=== PATIENT | female | born 1955 | race Caucasian/White ===

== ENCOUNTER → 2016-10-13 | Outpatient (CLI) | payer BC ==
--- OUTSIDE RECORDS SUMMARY | 2016-10-13 07:07 | XMS REPORT | Continuity of Care Document ---
Author Author [facility] Organization [facility] Address Unknown Phone Unavailable Care Team Providers Care Web Designer Developer Name Role Phone Antelmo Gibson PCP [phone] Source Comments Some departments are not documenting in the electronic medical record. If you do not see the information that you expected, contact Release of Information in the Health Information Management department at [phone] for further assistance in locating additional records.[facility] Active Allergies and Adverse Reactions Not on File Current Medications Not on file Active Problems Not on file Social History Tobacco Use Types Packs/Day Years Used Date Never Assessed Plan of Care Health Maintenance Due Date Last Done Comments Physical (Comprehensive) 1963 Exam Pertussis Vaccine 1967 Tetanus Vaccine 1973 Cervical Cancer Screening 1977 Breast Cancer Screening 1996 Colorectal Cancer 2006 Screening Influenza Vaccine 05/19/2016 Results from Last 3 Months Not on file
--- NOTE | 2016-10-13 19:17 | Diagnostic Imaging Report ---
INDICATION: Digital mammogram bilateral screening. This study was compared to the prior exam of 10/13/15, 10/06/14, 09/26/13 and 09/27/12. At this time, there are no current complaints. The current study was also evaluated with a Computer Aided Detection (CAD) system. FINDINGS: There is a mild amount of fibroglandular tissue present in both breasts, similar to the prior exam. No primary or secondary sign of malignancy is noted. IMPRESSION: There is no radiographic evidence for malignancy. ACR BI-RADS Category 1: Negative Result letter will be mailed to the patient. Note: At least 10% of breast cancer is not imaged by mammography. Dictated by: Dictated on workstation # [id number]
== END ==
LOC: RAD 07:04
PROVIDERS: ATTEND Internal Medicine
DX: Z12.31 Encounter for screening mammogram for malignant neoplasm of breast (principal)

== ENCOUNTER → 2017-10-19 | Outpatient (CLI) | payer BC ==
--- NOTE | 2017-10-19 18:15 | Diagnostic Imaging Report ---
INDICATION: Routine screening. COMPARISON: Comparison is made with prior exam from 10/13/2016 and 10/13/2015. The current study was also evaluated with a Computer Aided Detection (CAD) system. FINDINGS: Both breasts are primarily involutional. Benign nodules in the upper-outer right breast are stable. No new mass or malignant-appearing microcalcifications are seen. The axillae are unremarkable. IMPRESSION: No mammographic features suspicious for malignancy are identified. ACR BI-RADS Category 2: Benign findings. Result letter will be mailed to the patient. Note: At least 10% of breast cancer is not imaged by mammography. Dictated by: Dictated on workstation # [id number]
== END ==
LOC: RAD 07:11
PROVIDERS: ATTEND Internal Medicine
DX: Z12.31 Encounter for screening mammogram for malignant neoplasm of breast (principal)
CPT/HCPCS: 77067

== ENCOUNTER 2018-10-22 06:31 | Outpatient (CLI) | payer BC ==
[~2018-10-22] VITALS: Ht 170.2 cm; Wt 80.3 kg
[2018-10-22] MEDS ORDERED: MONT10TA24 PO (15:19)
[2018-10-22] MEDS ORDERED: VENL75CA PO (15:20)
== END 2018-10-22 15:22 | disposition home or self-care (01) ==
LOC: PREOP 06:31
PROVIDERS: ATTEND Surgery
DX: Z01.818 Encounter for other preprocedural examination (principal)

== ENCOUNTER 2018-10-29 07:40 | Day surgery (SDC) | payer BC ==
[2018-10-29] MEDS ORDERED: NS IV 500 ML 500 ML ONE (07:57)
[2018-10-29 08:12] VITALS: BP 123/79
[2018-10-29] MEDS ORDERED: NS IV 500 ML 500 ML IV PRN (08:20)
[2018-10-29] MEDS ORDERED: fentaNYL INJECTION 100 MCG/2 ML AMP IVP ONE (08:30)
[2018-10-29] MEDS ORDERED: MIDAZOLAM 2 MG/2 ML (VERSED) VIAL IVP ONE (08:30)
[2018-10-29] MEDS ORDERED: MIDAZOLAM 2 MG/2 ML (VERSED) VIAL ONE ×4 (09:01→09:02)
[2018-10-29] MEDS ORDERED: fentaNYL INJECTION 100 MCG/2 ML AMP ONE (09:01)
--- NOTE | 2018-10-29 10:13 | History & Physicial ---
History of Present Illness History of Present Illness Reason for visit/HPI to undergo screening colonoscopy. No family history of colon cancer Date of Admission 10/29/18 Date Seen by a Provider: Oct 29, 2018 Time Seen by a Provider: 09:45 I consulted on this patient on 10/29/18 10:12 Attending Physician Ang Ryan MD Admitting Physician Beverly Draper DO Consult Allergies and Home Medications Allergies Coded Allergies: Penicillins (Verified Allergy, Unknown, 07/13/10) Home Medications Montelukast Sodium 10 Mg Tablet, 10 MG PO DAILY, (Reported) Venlafaxine HCl 75 Mg Cap.er.24h, 75 MG PO DAILY, (Reported) Patient Home Medication List Home Medication List Reviewed: Yes Past Wxnvsrf-Iqedog-Jxccml Hx Patient Social History Marrital Status: Employed/Student: employed Alcohol Use: Denies Use Recreational Drug Use: No Smoking Status: Never a Smoker 2nd Hand Smoke Exposure: No Recent Foreign Travel: No Contact w/other who traveled: No Recent Hopitalizations: No Recent Infectious Disease Expo: No Immunizations Up To Date Tetanus Booster (TDap): Unknown Date of Influenza Vaccine: Jun 18, 2018 Seasonal Allergies Seasonal Allergies: Yes Surgeries No Respiratory Yes Currently Using CPAP: No Currently Using BIPAP: No Cardiovascular No Neurological No Reproductive System Sexually Transmitted Disease: No HIV/AIDS: No Female Reproductive Disorders: Denies Genitourinary No Gastrointestinal No Musculoskeletal No Endocrine History of Endocrine Disorders: No HEENT History of HEENT Disorders: No Loss of Vision: Denies Hearing Impairment: Denies Cancer No Psychosocial History of Psychiatric Problem: Yes Behavioral Health Disorders: Anxiety Integumentary History of Skin or Integumenta: No Blood Transfusions History of Blood Disorders: No Review of Systems Constitutional: no symptoms reported EENTM: no symptoms reported Respiratory: no symptoms reported Gastrointestinal: no symptoms reported Genitourinary: no symptoms reported Musculoskeletal: no symptoms reported Skin: no symptoms reported Psychiatric/Neurological: No Symptoms Reported Physical Exam Vital Signs Vital Signs - First Documented 10/29/18 08:12 Temp 97.1 Pulse 72 Resp 18 B/P (MAP) 123/79 (94) Pulse Ox 99 O2 Delivery Room Air Capillary Refill : Height, Weight, BMI Height: 5'7.00" Weight: 177lbs. 0.0oz. 80.674098is; 27.7 BMI Method: General Appearance: No Apparent Distress Neck: Normal Inspection Respiratory: Lungs Clear Cardiovascular: Regular Rate, Rhythm Gastrointestinal: Non Tender, Soft Rectal: Deferred Neurologic/Psychiatric: Alert, Oriented x3 Skin: Warm/Dry Assessment/Plan Assessment and Plan lady to undergo screening colonoscopy. Discussed in detail. Admission Diagnosis Admission Status: Other (Outpt Proc) ANG RYAN MD Oct 29, 2018 10:13
--- NOTE | 2018-10-29 10:14 | Conscious Sedation/ASA ---
Conscious Sedation Pre-Proced Time 10:13 ASA Score 1 For ASA 3 and 4: Consider anesthesia and medical clearance. Also, for patients with a history of failed moderate sedation consider anesthesia. Airway Lungs Heart ASA score ASA 1: a normal healthy patient ASA 2: a patient with a mild systemic disease (mid diabetes, controlled hypertension, obesity ASA 3: a patient with a severe systemic disease that limits activity (angina , COPD, prior Myocardial infarction) ASA 4: a patient with an incapacitating disease that is a constant threat to life (CHF, renal failure) ASA 5: a moribund patient not expected to survive 24 hrs. (ruptured aneurysm) ASA 6: a declared brain- patient whose organs are being harvested. For emergent operations, add the letter E after the classification Mallampati Classification Grade 1 Sedation Plan Discussed options with patient/fam The patient is an appropriate candidate to undergo the planned procedure, sedation, and anesthesia. The patient immediately re-assessed prior to indication. ANG RYAN MD Oct 29, 2018 10:14
--- NOTE | 2018-10-29 10:32 | Endo Procedure Record ---
Endo Procedure Report Date of Procedure Last Colonoscopy: Yes Oct 29, 2018 Surgeon (s) ANG RYAN MD Post Procedure/Op Diagnosis 2 mm polyp at the midrectum. Procedure Performed colonoscopy to cecum hot biopsy polypectomy Description of Procedure Anesthesia Type: Conscious Sedation Specimen(s) collected/removed rectal polyp Description of the Procedure Indication for the procedure: This lady came in for screening colonoscopy. She denied any family history of colon cancer. Informed consent was obtained after reviewing the procedure in detail. Description of the procedure: She was placed in left lateral decubitus position and her vital signs were monitored. Conscious sedation was achieved using Versed and fentanyl. Digital rectal examination was unremarkable. The colonoscope was then introduced into the rectum and advanced all the way up to the cecum. The quality bowel preparation was excellent. The scope was then withdrawn slowly and the mucosa examined in a systematic fashion. Findings: 2 mm polyp at the mid rectum, that was excised with hot biopsy forceps. She tolerated the procedure well and was taken back to the nursing area in a stable condition. Impression: Screening colonoscopy. Small rectal polyp excised. Recommend repeating in 5 years. Copy Copies To 1: TREMAINE TO XAVIER M MD Oct 29, 2018 10:31
--- NOTE | 2018-10-29 10:33 | Discharge Inst-Simple/Standard ---
Discharge Inst-Standard Discharge Medications New, Converted or Re-Newed RX: Other Patient Instructions/Follow Up Plan of Care/Instructions/FU: repeat colonoscopy in 5 years Activity as Tolerated: Yes Discharge Diet: No Restrictions ANG RYAN MD Oct 29, 2018 10:33
[2018-10-29 10:45] VITALS: BP 123/71
[2018-10-29 11:15] VITALS: BP 111/72
[2018-10-29 11:25] VITALS: BP 111/72
== END 2018-10-29 11:25 | disposition home or self-care (01) ==
LOC: ENDO 07:40
PROVIDERS: ATTEND Surgery
DX: Z12.11 Encounter for screening for malignant neoplasm of colon (principal); K62.1 Rectal polyp; Z88.0 Allergy status to penicillin; F41.9 Anxiety disorder, unspecified; Z79.899 Other long term (current) drug therapy

== ENCOUNTER → 2018-10-29 | Outpatient (CLI) | payer BC ==
[~2018-10-29] MED LIST: MONT10TA24 PO; VENL75CA PO
--- NOTE | 2018-10-29 08:46 | Diagnostic Imaging Report ---
INDICATION: Routine screening. COMPARISON: 10/19/2017 and 10/13/2016. TECHNIQUE: 2D and 3D bilateral screening mammography was performed with CAD. FINDINGS: Scattered fibroglandular densities are identified bilaterally. Benign-appearing nodules in the upper outer right breast are stable. No new mass or malignant appearing microcalcifications are identified. The axillae are unremarkable. IMPRESSION: No mammographic features suspicious for malignancy are identified. ACR BI-RADS Category 2: Benign findings. Result letter will be mailed to the patient. Note: At least 10% of breast cancer is not imaged by mammography. Dictated by: Dictated on workstation # [id number]
== END ==
LOC: RAD 07:25
PROVIDERS: ATTEND Internal Medicine
DX: Z12.31 Encounter for screening mammogram for malignant neoplasm of breast (principal)
CPT/HCPCS: 77067

== ENCOUNTER → 2019-11-14 | Outpatient (CLI) | payer BC ==
[~2019-11-14] MED LIST changes: -MONT10TA24 PO; +MONT10TA26 PO
--- NOTE | 2019-11-14 09:10 | Diagnostic Imaging Report ---
INDICATION: Routine screening. Comparison is made with prior mammogram 10/29/2018 and 10/19/2017. 2-D and 3-D bilateral screening mammography was performed with CAD. Scattered fibroglandular densities are identified bilaterally. Intraparenchymal lymph nodes in the upper-outer right breast are stable. No new mass or malignant appearing microcalcifications are seen. Axillae are unremarkable. IMPRESSION: BI-RADS Category 2 No mammographic features suspicious for malignancy are identified. ACR BI-RADS Category 2: Benign findings. Result letter will be mailed to the patient. Note: At least 10% of breast cancer is not imaged by mammography. Dictated by: Dictated on workstation # [id number]
== END ==
LOC: RAD 07:27
PROVIDERS: ATTEND Internal Medicine
DX: Z12.31 Encounter for screening mammogram for malignant neoplasm of breast (principal)
CPT/HCPCS: 77067

== ENCOUNTER 2020-08-28 11:25 | Emergency (ER) | payer BC ==
[~2020-08-28] VITALS: Ht 170.2 cm; Wt 79.3 kg
[~2020-08-28 11:25] MED LIST changes: -MONT10TA26 PO; +MONT10TA97 PO
--- NOTE | 2020-08-28 11:37 | ED Cardiac General ---
History of Present Illness General Stated Complaint: SOB,ELEVATED HR Source: patient Exam Limitations: no limitations History of Present Illness Date Seen by Provider: Aug 28, 2020 Time Seen by Provider: 11:35 Initial Comments To ER with reports of shortness of breath and high heart rate since yesterday. Heart rate is in the 1 teens to 120s. She has no chest pain. She has no noticeable lower extremity swelling. She did have Covid couple of months ago. No fevers or chills. Timing/Duration: changing over time Severity: moderate Location: central NTG SL BOOKIE: No ASA po BOOKIE: No Associated Systoms: Cough Allergies and Home Medications Allergies Coded Allergies: Penicillins (Verified Allergy, Unknown, 07/13/10) Home Medications Montelukast Sodium 10 Mg Tablet, 10 MG PO DAILY, (Reported) Venlafaxine HCl 75 Mg Cap.er.24h, 75 MG PO DAILY, (Reported) Patient Home Medication List Home Medication List Reviewed: Yes Review of Systems Review of Systems Constitutional: see HPI EENTM: No Symptoms Reported Respiratory: See HPI, Shortness of Air Cardiovascular: See HPI, Palpitations Gastrointestinal: No Symptoms Reported Genitourinary: No Symptoms Reported Musculoskeletal: no symptoms reported Skin: no symptoms reported Psychiatric/Neurological: No Symptoms Reported Endocrine: No Symptoms Reported Hematologic/Lymphatic: No Symptoms Reported Past Etuubtv-Iseyej-Yciaii Hx Patient Social History 2nd Hand Smoke Exposure: No Recent Foreign Travel: No Contact w/Someone Who Travel: No Recent Hopitalizations: No Immunizations Up To Date Tetanus Booster (TDap): Unknown Date of Influenza Vaccine: Jun 18, 2018 Seasonal Allergies Seasonal Allergies: Yes Past Medical History Surgeries: No Respiratory: Yes Asthma Currently Using CPAP: No Currently Using BIPAP: No Cardiac: No Neurological: No Female Reproductive Disorders: Denies Sexually Transmitted Disease: No HIV/AIDS: No Genitourinary: No Gastrointestinal: No Musculoskeletal: No Endocrine: No HEENT: No Loss of Vision: Denies Hearing Impairment: Denies Cancer: No Psychosocial: Yes Anxiety Integumentary: No Blood Disorders: No Physical Exam Vital Signs Vital Signs - First Documented 08/28/20 11:25 Temp 36.4 Pulse 113 Resp 20 B/P (MAP) 120/99 (106) Pulse Ox 98 O2 Delivery Room Air Capillary Refill : Height, Weight, BMI Height: 5'7.00" Weight: 177lbs. 0.0oz. 80.649934ns; 27.7 BMI Method: General Appearance: No Apparent Distress, WD/WN HEENT: PERRL/EOMI, TMs Normal Neck: Full Range of Motion, Normal Inspection Respiratory: No Accessory Muscle Use, No Respiratory Distress Cardiovascular: Normal Peripheral Pulses, Tachycardia (Sinus narrow complex rate of 110-1 25) Gastrointestinal: Normal Bowel Sounds, Non Tender, Soft Extremity: Normal Capillary Refill, Normal Inspection Neurologic/Psychiatric: Alert, Oriented x3 Skin: Normal Color, Warm/Dry Progress/Results/Core Measures Results/Orders Lab Results Laboratory Tests Test 08/28/20 11:45 Range/Units White Blood Count 4.4 4.3-11.0 10^3/uL Red Blood Count 4.30 3.80-5.11 10^6/uL Hemoglobin 12.8 11.5-16.0 g/dL Hematocrit 39 35-52 % Mean Corpuscular Volume 91 80-99 fL Mean Corpuscular Hemoglobin 30 25-34 pg Mean Corpuscular Hemoglobin Concent 33 32-36 g/dL Red Cell Distribution Width 13.2 10.0-14.5 % Platelet Count 236 130-400 10^3/uL Mean Platelet Volume 10.2 9.0-12.2 fL Immature Granulocyte % (Auto) 0 % Neutrophils (%) (Auto) 67 42-75 % Lymphocytes (%) (Auto) 19 12-44 % Monocytes (%) (Auto) 11 0-12 % Eosinophils (%) (Auto) 3 0-10 % Basophils (%) (Auto) 1 0-10 % Neutrophils # (Auto) 2.9 1.8-7.8 10^3/uL Lymphocytes # (Auto) 0.8 L 1.0-4.0 10^3/uL Monocytes # (Auto) 0.5 0.0-1.0 10^3/uL Eosinophils # (Auto) 0.2 0.0-0.3 10^3/uL Basophils # (Auto) 0.0 0.0-0.1 10^3/uL Immature Granulocyte # (Auto) 0.0 0.0-0.1 10^3/uL D-Dimer 0.62 H 0.00-0.49 UG/ML Sodium Level 134 L 135-145 MMOL/L Potassium Level 4.3 3.6-5.0 MMOL/L Chloride Level 105 98-107 MMOL/L Carbon Dioxide Level 20 L 21-32 MMOL/L Anion Gap 9 5-14 MMOL/L Blood Urea Nitrogen 18 7-18 MG/DL Creatinine 1.04 0.60-1.30 MG/DL Estimat Glomerular Filtration Rate 54 BUN/Creatinine Ratio 17 Glucose Level 105 70-105 MG/DL Calcium Level 8.9 8.5-10.1 MG/DL Corrected Calcium 8.7 8.5-10.1 MG/DL Total Bilirubin 1.1 H 0.1-1.0 MG/DL Aspartate Amino Transf (AST/SGOT) 46 H 5-34 U/L Alanine Aminotransferase (ALT/SGPT) 82 H 0-55 U/L Alkaline Phosphatase 70 40-136 U/L Troponin I < 0.028 <0.028 NG/ML Total Protein 7.3 6.4-8.2 GM/DL Albumin 4.3 3.2-4.5 GM/DL Micro Results Microbiology 08/28/20 Influenza Types A,B Antigen (EVERETTE) - Final, Complete My Orders Orders - JOSE LUCAS MANAGER WELDING Cbc With Automated Diff (08/28/20 11:34) Comprehensive Metabolic Panel (08/28/20 11:34) Fibrin Degradation Products (08/28/20 11:34) Troponin I (08/28/20 11:34) Ekg Tracing (08/28/20 11:34) Ua Culture If Indicated (08/28/20 11:34) Influenza A And B Antigens (08/28/20 11:34) Chest 1 View, Ap/Pa Only (08/28/20 11:34) Ed Iv/Invasive Line Start (08/28/20 11:34) Vital Signs/I&O 08/28/20 08/28/20 11:25 13:48 Temp 36.4 Pulse 113 101 Resp 20 23 B/P (MAP) 120/99 (106) 131/63 Pulse Ox 98 97 O2 Delivery Room Air Room Air Diagnostic Imaging Diagonstic Imaging: Xray Plain Films/CT/US/NM/MRI: chest Comments NAME: [facility] REC#: [id number] PT STATUS: REG ER : 1955 PHYSICIAN: JOSE LUCAS APRN ADMIT DATE: 08/28/20/ER Draft Date of Exam:08/28/20 CHEST 1 VIEW, AP/PA ONLY INDICATION: Cough. Frontal chest obtained at 12:18 p.m. and compared 10/08/2018 FINDINGS: Heart and mediastinal silhouette are normal in appearance. The lungs are clear. There is no pneumothorax or pleural fluid. IMPRESSION: Negative chest. Dictated on workstation # [id number] Dict: 08/28/20 1247 Trans: 08/28/20 1249 [id number] Interpreted by: MAY CUNNINGHAM MD Electronically signed by: Departure Communication (Admissions) Patient does ask me if this could have been anxiety related. Certainly that could explain her symptoms. Impression Primary Impression: Sinus tachycardia Disposition: 01 HOME, SELF-CARE Condition: Stable Departure-Patient Inst. Decision time for Depature: 13:29 Referrals: TREMAINE TO DO (PCP/Family) Primary Care Physician Patient Instructions: Sinus Tachycardia (DC) Add. Discharge Instructions: 1. Follow-up with Dr. Treviño next week. Return to ER for any concerns. JOSE LUCAS MANAGER WELDING Aug 28, 2020 11:37
[2020-08-28 11:55] LABS: BASOPHILS % (AUTO) 1 % (0-10); EOSINOPHILS # (AUTO) 0.2 10^3/uL (0.0-0.3); EOSINOPHILS % (AUTO) 3 % (0-10); HEMATOCRIT 39 % (35-52); HEMOGLOBIN 12.8 g/dL (11.5-16.0); LYMPHOCYTES # (AUTO) 0.8 10^3/uL (1.0-4.0); LYMPHOCYTES % (AUTO) 19 % (12-44); MEAN CORPUSCULAR HEMOGLOBIN 30 pg (25-34); MEAN CORPUSCULAR HGB CONC 33 g/dL (32-36); MEAN CORPUSCULAR VOLUME 91 fL (80-99); MEAN PLATELET VOLUME 10.2 fL (9.0-12.2); MONOCYTES # (AUTO) 0.5 10^3/uL (0.0-1.0); MONOCYTES % (AUTO) 11 % (0-12); NEUTROPHILS # (AUTO) 2.9 10^3/uL (1.8-7.8); NEUTROPHILS % (AUTO) 67 % (42-75); PLATELET COUNT 236 10^3/uL (130-400); WHITE BLOOD COUNT 4.4 10^3/uL (4.3-11.0)
[2020-08-28 12:08] LABS: ALBUMIN 4.3 GM/DL (3.2-4.5)
[2020-08-28 12:09] LABS: CHLORIDE 105 MMOL/L (98-107); POTASSIUM 4.3 MMOL/L (3.6-5.0); SODIUM 134 MMOL/L (135-145)
[2020-08-28 12:10] LABS: CALCIUM 8.9 MG/DL (8.5-10.1)
[2020-08-28 12:11] LABS: GLUCOSE 105 MG/DL (70-105); TOTAL PROTEIN 7.3 GM/DL (6.4-8.2)
[2020-08-28 12:12] LABS: CARBON DIOXIDE 20 MMOL/L (21-32)
[2020-08-28 12:13] LABS: BILIRUBIN,TOTAL 1.1 MG/DL (0.1-1.0)
[2020-08-28 12:14] LABS: ALKALINE PHOSPHATASE 70 U/L (40-136); CREATININE SERUM 1.04 MG/DL (0.60-1.30); GFR ESTIMATED 54
[2020-08-28 12:16] LABS: BUN/CREATININE RATIO 17
[2020-08-28 12:17] LABS: ALANINE AMINOTRANSFERASE 82 U/L (0-55)
--- NOTE | 2020-08-28 12:49 | Diagnostic Imaging Report ---
INDICATION: Cough. Frontal chest obtained at 12:18 p.m. and compared 10/08/2018 FINDINGS: Heart and mediastinal silhouette are normal in appearance. The lungs are clear. There is no pneumothorax or pleural fluid. IMPRESSION: Negative chest. Dictated by: Dictated on workstation # [id number]
[2020-08-28 13:48] VITALS: BP 131/63
== END 2020-08-28 13:48 | disposition home or self-care (01) ==
LOC: EDUNIT# 11:25 → ER 11:28
DX: R00.0 Tachycardia, unspecified (principal); J45.909 Unspecified asthma, uncomplicated; F41.9 Anxiety disorder, unspecified; Z88.0 Allergy status to penicillin
CPT/HCPCS: 36415; 71045; 80053; 84484; 85025; 85379; 87804; 93005

== ENCOUNTER 2020-09-09 10:40 | Inpatient (IN) | payer BC ==
[~2020-09-09] VITALS: Ht 170.2 cm; Wt 86.0 kg
[2020-09-09] MEDS ORDERED: CALCIUM CARBONATE 500 MG (TUMS) TAB.CHEW PO PRN (11:15)
[2020-09-09] MEDS ORDERED: HYDROcodone/APAP 5 MG/325 MG (LORTAB) TAB PO PRN (11:15)
[2020-09-09] MEDS ORDERED: VANCOMYCIN INJECTION 1,000 MG in NS (IVPB) 250 ML IV SCH (11:15)
[2020-09-09] MEDS ORDERED: MEROPENEM 1,000 MG in WATER (STERILE) FOR INJECTION 20 ML IV SCH (11:15)
[2020-09-09] MEDS ORDERED: LOPERAMIDE 2 MG (IMODIUM) TABLET PO PRN (11:15)
[2020-09-09] MEDS ORDERED: diphenhydrAMINE 25 MG TAB (BENADRYL) PO PRN (11:15)
[2020-09-09] MEDS ORDERED: ALPRAZolam 0.25 MG (XANAX) TAB PO PRN (11:15)
[2020-09-09] MEDS ORDERED: MELATONIN 3 MG TABLET PO PRN (11:15)
[2020-09-09] MEDS ORDERED: ONDANSETRON 4 MG/2 ML (SDV) Z0FRAN IVP PRN (11:15)
[2020-09-09] MEDS ORDERED: DOCUSATE SODIUM 100 MG (COLACE) CAP PO PRN (11:15)
[2020-09-09 11:38] VITALS: BP 125/80
[2020-09-09 12:00] VITALS: BP 125/80
[2020-09-09 12:09] LABS: BASOPHILS # (AUTO) 0.1 10^3/uL (0.0-0.1); BASOPHILS % (AUTO) 1 % (0-10); EOSINOPHILS # (AUTO) 0.2 10^3/uL (0.0-0.3); EOSINOPHILS % (AUTO) 2 % (0-10); HEMATOCRIT 35 % (35-52); HEMOGLOBIN 11.2 g/dL (11.5-16.0); LYMPHOCYTES % (AUTO) 67 % (12-44); MEAN CORPUSCULAR HEMOGLOBIN 29 pg (25-34); MEAN CORPUSCULAR HGB CONC 32 g/dL (32-36); MEAN CORPUSCULAR VOLUME 90 fL (80-99); MEAN PLATELET VOLUME 10.3 fL (9.0-12.2); MONOCYTES # (AUTO) 0.6 10^3/uL (0.0-1.0); MONOCYTES % (AUTO) 5 % (0-12); NEUTROPHILS % (AUTO) 25 % (42-75); PLATELET COUNT 296 10^3/uL (130-400)
[2020-09-09 12:10] LABS: SMEAR SCAN COMMENT YES
[2020-09-09 12:25] LABS: ALBUMIN 3.3 GM/DL (3.2-4.5); CHLORIDE 103 MMOL/L (98-107); POTASSIUM 3.6 MMOL/L (3.6-5.0); SODIUM 136 MMOL/L (135-145)
[2020-09-09 12:26] LABS: CALCIUM 8.4 MG/DL (8.5-10.1)
[2020-09-09] MEDS: NS IV 1000 ML 1,000 ML IV SCH ×4 (12:26→22:45)
[2020-09-09] MEDS: ENOXAPARIN 40 MG/0.4 ML (LOVENOX) SYR SC SCH (12:27)
[2020-09-09 12:28] LABS: GLUCOSE 105 MG/DL (70-105); TOTAL PROTEIN 6.6 GM/DL (6.4-8.2)
[2020-09-09 12:29] LABS: BILIRUBIN,TOTAL 0.9 MG/DL (0.1-1.0); CARBON DIOXIDE 20 MMOL/L (21-32)
[2020-09-09 12:31] LABS: ALKALINE PHOSPHATASE 166 U/L (40-136); CREATININE SERUM 0.77 MG/DL (0.60-1.30); GFR ESTIMATED > 60
[2020-09-09 12:32] LABS: BUN/CREATININE RATIO 10
--- NOTE | 2020-09-09 12:33 | NUR ---
DR. TO AT BEDSIDE AND THIS RN REPORTED LACTIC ACID 2.41. GAVE VERBAL ORDER FOR 1 LITER BOLUS NS THEN MAINTENANCE AT 100ML/HR.
[2020-09-09 12:34] LABS: ALANINE AMINOTRANSFERASE 272 U/L (0-55)
[2020-09-09 12:40] LABS: ERYTHROCYTE SEDIMENTATION RATE 14 MM/HR (0-30)
--- NOTE | 2020-09-09 12:40 | NUR ---
DR. TO GAVE VERBAL ORDER FOR BOLUS NS AND THEN NS @ 100 ML/HR, US ABDOMEN R/T ELEVATED LIVER ENZYMES.
[2020-09-09] MEDS ORDERED: NS IV 1000 ML 1,000 ML IV SCH (12:45)
[2020-09-09 12:48] LABS: BAND NEUTROPHILS 3 %; EOSINOPHILS % (MANUAL) 2 %; LYMPHOCYTES % (MANUAL) 25 %; MONOCYTES % (MANUAL) 4 %; NEUTROPHILS % (MANUAL) 36 %; RBC MORPH NORMAL; REACTIVE LYMPHOCYTES 30 %
--- NOTE | 2020-09-09 12:49 | NUR ---
PTD VANCOMYCIN LABS: 86 KG, SCr 0.77, CrCl 84.3, BMI 29.7 LOADING DOSE: 20MG/KG x 86 KG ~ 1750 MG 09/09 @ 1300. MAINTENANCE DOSE: 15MG/KG x 86 KG ~ 1250 MG Q12H STARTING 09/10 @ 0100. VANCOMYCIN TROUGH DUE 09/11 0000. IF TROUGH >20, HOLD DOSE & NOTIFY PHARMACY FOR ADJUSTMENTS.
--- NOTE | 2020-09-09 12:54 | Consultation-Cardiology ---
HPI-Cardiology Cardiology Consultation: Date of Consultation 09/09/20 Time Seen by a Provider: 12:35 Date of Admission 09-09-2020 Attending Physician Beverly To DO Admitting Physician Beverly To DO Consulting Physician Marybel Carlos MD HPI: Chief Complaint: SOB Ms. Trevino is a 64 yr old female admitted to [facility] with c/o generally feeling unwell. She reports she donated blood on Aug 27, 2020 and since then she has not felt well. She reports low grade fevers at home, typically in the evening, as high as 102. She reports elevated HR at times ranging from 90's-130's with exertion, which will typically resolve with rest, Reports it does not feel irregular, just fast. She reports she has been checking her oxygen sat at home and noted it to be in the mid to upper 90's. She denies any c/o CP, syncope or near syncope. No LE swelling. She reports some mod OCAMPO. She states she had COVID in May. She states she was recently tested for COVID again, flu A and B which she reports were negative. She does report nausea, but not vomiting or diarrhea. She states she has never been hospitalized before. Review of Systems-Cardiology Review of Systems Constitutional: No chills; fever, malaise Eyes: No vision change Ears/Nose/Throat: No recent hearing loss Respiratory: As described under HPI Cardiovascular: As described under HPI Gastrointestinal: No diarrhea; nausea; No vomiting Genitourinary: No dysuria Musculoskeletal: no symptoms reported Skin: No rash on exposed areas, No ulcerations on exposed areas Psychiatric/Neurological: No focal weakness, No syncope Hematologic: No bleeding abnormalities AYF-Nkruds-Zvcjsj Hx Patient Social History 2nd Hand Smoke Exposure: No Recent Foreign Travel: No Recent Infectious Disease Expo: No Immunizations Up To Date Tetanus Booster (TDap): Unknown Date of Influenza Vaccine: Jun 18, 2020 Past Medical History PMH As described under Assessment. Family Medical History Family Medical History: She reports her mother had CAD and a CVA as well as a pacemaker. Allergies and Home Medications Allergies Coded Allergies: Penicillins (Verified Allergy, Unknown, 09/09/20) Home Medications Acetaminophen 500 Mg Tablet, 500-1,000 MG PO Q8H PRN for PAIN-MILD (1-4), (Reported) Ceftriaxone Na/Dextrose,Iso 1 Gm/50 Ml Froz.piggy, 1 GM IV DAILY Prescribed by: BEVERLY TO on 09/14/20 0906 Fluticasone Propionate 9.9 Ml [place].susp, 2 SPRAY NS DAILY, (Reported) Fluticasone/Salmeterol 1 Each Blst.w.dev, 1 PUFF INH DAILY, (Reported) Venlafaxine HCl 150 Mg Cap.er.24h, 150 MG PO DAILY, (Reported) Physical Exam-Cardiology Physical Exam Vital Signs/I&O 09/15/20 00:00 Intake Total 1800 ml Balance 1800 ml Capillary Refill : Constitutional: AAO x 3, well-developed, well-nourished HEENT: PERRL, hearing is well preserved, oral hygience is good Neck: No carotid bruit; carotid pulses are 2 + bilaterally Respiratory: No accessory muscle use, No respiratory distress; chest expansion is symmetric, chest is bilaterally symmetric, lungs clear to auscultation Cardiovascular: regular rate-rhythm; No JVD; S1 and S2 Gastrointestinal: No tender; soft, round, audible bowel sounds Extremities: no lower extremity edema bilateral Neurologic/Psychiatric: grossly intact (moves all extremities) Skin: No rash on exposed areas, No ulcerations on exposed areas Data Review Labs Microbiology 09/09/20 Blood Culture - Final, Complete No growth A/P-Cardiology Assessment/Admission Diagnosis Sepsis of undetermined etiology - medical services managing OCAMPO Palpitations of undetermined etiology Reported fevers of undetermined etiology H/O COVID in May 2020 MPI of May [address] Davis showed no signif ischemia or infarction. LVEF 58% Liver enzyme elevation of undetermined etiology Discussion and Recomendations Sepsis of undetermined etiology - medical services managing D/t sepsis of unknown source as well as palpitations and OCAMPO we advise echocardiogram to eval structure and function We advise tele d/t c/o palpitations to eval for any arrhythmias Liver enzyme elevation of undetermined etiology - medical services managing Monitor lab closely further recs will be based on her hospital course We would like to thank medical services for this consult Clinical Quality Measures DVT/VTE Risk/Contraindication: Risk Factor Score Per Nursin RFS Level Per Nursing on Admit: 4+=Very High YOLANDE ALEXANDER Sep 09, 2020 12:54
[2020-09-09] MEDS ORDERED: VANCOMYCIN 1,750 MG/NS 500 ML IVPB IV NR ×2 (13:00)
[2020-09-09] MEDS ORDERED: CATHETER FLUSH 10 ML SYR IV PRN (13:00)
[2020-09-09] MEDS: MEROPENEM 500 MG/SWFI 10 ML IV PUSH IV SCH ×4 (13:44→20:12)
--- NOTE | 2020-09-09 13:45 | History & Physical-Hospitalist ---
History of Present Illness HPI/Chief Complaint CC: Fever with tachycardia and elevated lactic acid with outpatient blood culture with Propionibacterium acnes HPI: This is a 64yoWF clinic patient of mine for the past 16 years who has a h/o asthma, chronic cough and anxiety with HLP who presents to 405 as a direct admit from home due to continued to fever with tachycardia and outpatient blood culture with Propionibacterium acnes. She had COVID-19 in May which resolved without much intervention. She reports that she had her teeth cleaned at [facility] on 08/11/20 and had no concerns about her dental health. She gave blood on 08/27/20 and has since felt ill. She went to ER on 08/28/20 due to tachycardia and recurrent fever and all tests were normal so she was told to monitor fever and take Tylenol for fever and she saw me in follow up and elzbieta ent seemed to be better. She has continued to work at [employer]. Patient reported continued fever so I initiated an outpatient w/u and appt today at the clinic but 6 days after blood work done the BCx revealed Propionibacterium acnes in anaerobic bottle/ I suspected deep seated abscess so I admitted her and consulted Cardiology for possible endocarditis evaluation. CT scans revealed lung nodule which I suspect to be a small abscess. PICC line was placed on Meropenem initiated and 4 sets of blood cultures were obtained prior to abx to secure bacterermia again. USG revealed steatosis. Xanax will be provided for anxiety. Source: patient Exam Limitations: no limitations Date Seen 09/09/20 Time Seen by a Provider: 12:00 Attending Physician Beverly Draper DO PCP Beverly Draper DO Referring Physician Date of Admission Sep 09, 2020 at 11:12 Home Medications & Allergies Home Medications Reviewed patient Home Medication Reconciliation performed by pharmacy medication reconciliations build technician and/or nursing. Patients Allergies have been reviewed. Allergies Allergies Coded Allergies Penicillins (Verified Allergy, Unknown, 09/09/20) Past Enoqvsx-Vyelrv-Gwhuwg Hx Past Med/Social Hx: Reviewed Nursing Past Med/Soc Hx, Reviewed and Corrections made Patient Social History Marrital Status: Employed/Student: employed Alcohol Use: Denies Use Smoking Status: Never a Smoker 2nd Hand Smoke Exposure: No Recent Foreign Travel: No Contact w/other who traveled: No Recent Hopitalizations: No Recent Infectious Disease Expo: No Immunizations Up To Date Tetanus Booster (TDap): Unknown Date of Influenza Vaccine: Jun 18, 2020 Seasonal Allergies Seasonal Allergies: Yes Past Medical History Respiratory: Asthma, Pneumonia Currently Using CPAP: No Currently Using BIPAP: No Cardiac: High Cholesterol Sexually Transmitted Disease: No HIV/AIDS: No Female Reproductive Disorders: Denies Loss of Vision: Denies Hearing Impairment: Denies Psychosocial: Anxiety History of Blood Disorders: No Review of Systems Constitutional: see HPI, dizziness, fever, malaise, weakness Physical Exam Physical Exam Vital Signs Vital Signs - First Documented 09/09/20 11:38 Temp 36.6 Pulse 108 Resp 18 B/P (MAP) 125/80 Pulse Ox 96 O2 Delivery Room Air Capillary Refill : Height, Weight, BMI Height: 5'7.00" Weight: 177lbs. 0.0oz. [id number]; 29.68 BMI Method: General Appearance: No Apparent Distress, Anxious Eyes: Right Eye Normal Inspection, Right Eye PERRL HEENT: PERRL/EOMI, Normal ENT Inspection, Pharynx Normal, Moist Mucous Membranes Neck: Full Range of Motion, Normal Inspection, Non Tender Respiratory: Chest Non Tender, Lungs Clear, Normal Breath Sounds, No Accessory Muscle Use, No Respiratory Distress Cardiovascular: Regular Rate, Rhythm, No Edema, No Gallop, No JVD, No Murmur, Normal Peripheral Pulses Gastrointestinal: Normal Bowel Sounds, No Organomegaly, No Pulsatile Mass, Non Tender, Soft Back: Normal Inspection, No CVA Tenderness, No Vertebral Tenderness Extremity: Normal Capillary Refill, Normal Inspection, Normal Range of Motion, Non Tender, No Calf Tenderness, No Pedal Edema Neurologic/Psychiatric: Alert, Oriented x3, No Motor/Sensory Deficits, Normal Mood/Affect Skin: Normal Color, Warm/Dry Lymphatic: No Adenopathy Results Results/Procedures Labs Laboratory Tests 09/09/20 11:45 Patient resulted labs reviewed. Assessment/Plan Admission Diagnosis Assessment: Bacteremia Propionibacterium acnes in outpatient blood Cx, ordered 4 sets of BCx on admit to confirm, likely from teeth cleaning 08/11/20 now with 6mm RLL presumed abscess placed on Meropenem and Vanc empirically and PICC line placed COVID-19 05/2020 repeat COVID negative this week Asthma HLP Elevated LFT's Hepatic steatosis on USG Plan: PICC line Abx Monitor closely Cardiology evaluation Monitor labs Admission Status: Inpatient Order (span 2 midnights) Reason for Inpatient Admission: bacteremia Diagnosis/Problems Diagnosis/Problems (1) Bacteremia (2) Lung abscess (3) Propionibacterium infection (4) Lactic acid acidosis (5) Dehydration (6) Asthma (7) Liver enzyme elevation (8) Hyperlipemia (9) Sinus tachycardia Status: Acute Clinical Quality Measures DVT/VTE Risk/Contraindication: Risk Factor Score Per Nursin RFS Level Per Nursing on Admit: 4+=Very High BEVERLY DRAPER DO Sep 09, 2020 13:45
--- NOTE | 2020-09-09 14:07 | NUR ---
CARE AND REPORT GIVEN TO MALVIN LY AT THIS TIME. PATIENT DOWN FOR SCANS.
--- NOTE | 2020-09-09 14:09 | Diagnostic Imaging Report ---
EXAMINATION: PA and lateral chest at 1:54 PM. INDICATION: PICC line insertion. FINDINGS: In the interval since the prior exam of 08/28/2020, a right-sided PICC line has been inserted. The tip of the line overlies the distal superior vena cava and seems to be in good position. There is no sign of a pneumothorax and the overall appearance of the chest has not changed adversely otherwise. There are a few crowded bronchovascular markings in the right infrahilar region but there is no evidence for failure, pneumonia, or pleural effusion. The heart size remains within normal limits and the mediastinum is not widened. IMPRESSION: 1. There has been interval insertion of a right-sided PICC line without apparent complication. 2. The overall appearance of the chest is otherwise stable. Dictated by: Dictated on workstation # [id number]
[2020-09-09] MEDS ORDERED: IOHEXOL 350 MG/ML 100 ML (OMNIPAQUE 350) VIAL IV ONE (14:45)
[2020-09-09] MEDS ORDERED: HOLD METFORMIN - RECEIVED CONTRAST 20 ML VIAL IV SCH (14:45)
[2020-09-09] MEDS ORDERED: NS 100 ML (IVPB) BAG IV ONE (14:45)
--- NOTE | 2020-09-09 14:45 | Diagnostic Imaging Report ---
PROCEDURE: US Abdomen, limited. TECHNIQUE: Multiple realtime grayscale images were obtained over the abdomen in various projections. INDICATION: Elevated liver enzymes. FINDINGS: Liver is enlarged at 20 cm. There is increased echogenicity throughout the liver consistent with hepatic steatosis. Portal vein is patent and shows normal direction of flow. No mass is detected. Gallbladder is without stones or sludge. No wall thickening is identified. Extrahepatic bile duct was obscured by bowel gas. Pancreas is unremarkable. Aorta is nonaneurysmal. IVC is patent. Right kidney is without calculi or hydronephrosis. There is no ascites. IMPRESSION: 1. Hepatomegaly and hepatic steatosis. 2. No evidence of cholelithiasis or acute cholecystitis. Dictated by: Dictated on workstation # [id number]
--- NOTE | 2020-09-09 14:52 | Diagnostic Imaging Report ---
EXAMINATION: CT Chest, Abdomen and Pelvis with intravenous contrast. TECHNIQUE: Multiple contiguous axial images were obtained through the chest, abdomen and pelvis after the uneventful administration of intravenous contrast. All CT scans use one or more of the following dose optimizing techniques: automated exposure control, MA and/or KvP adjustment based on a patient size and exam type, or iterative reconstruction. HISTORY: Shortness of breath, fever. COMPARISON: None available. FINDINGS: There is no edema or pneumonia. No pleural effusion. No pneumothorax. There is a 6 mm right lower lobe pulmonary nodule (series 2, image 41). Right-sided PICC is present. There is no axillary or supraclavicular lymphadenopathy. There is no mediastinal lymphadenopathy. Heart size is normal. There are mild coronary artery calcifications. No pericardial effusion. Aorta is normal in caliber. Liver is steatotic. No suspicious liver lesions are seen. There is no biliary ductal dilation. Gallbladder is normal. Pancreas is normal. Spleen is normal. Adrenal glands are normal. The kidneys are normal. There is no hydronephrosis. Urinary bladder is normal. Visualized bowel is normal in caliber without obstruction or inflammation. There is a small amount of free fluid in the pelvis. No abdominal or pelvic lymphadenopathy. Aorta is normal in caliber without aneurysm. There are no suspicious osseous lesions. IMPRESSION: 1. Indeterminate 6 mm right lower lobe pulmonary nodule. According to the Fleischner Society guidelines: Recommend CT at 6-12 months and then again at 18-24 months (the second CT is optional in a low risk patient) 2. Steatotic liver. 3. Trace free fluid in the pelvis. Dictated by: Dictated on workstation # [id number]
[2020-09-09 15:23] LABS: BILIRUBIN,URINE NEGATIVE (NEGATIVE); CLARITY,URINE CLEAR; COLOR,URINE YELLOW; GLUCOSE, URINE (UA) NEGATIVE (NEGATIVE); KETONES,URINE NEGATIVE (NEGATIVE); LEUKOCYTE ESTERASE ,URINE NEGATIVE (NEGATIVE); NITRITE,URINE NEGATIVE (NEGATIVE); PROTEIN,URINE NEGATIVE (NEGATIVE)
[2020-09-09 15:25] VITALS: BP 125/80
[2020-09-09 15:32] LABS: BACTERIA,URINE NEGATIVE /HPF; SQUAMOUS EPITHELIAL CELL,UR RARE /HPF
[2020-09-09] MEDS ORDERED: FLUT9.9S NS (15:57)
[2020-09-09] MEDS ORDERED: VENL150C98 PO (15:57)
[2020-09-09] MEDS ORDERED: ATOR10TA66 PO (15:57)
[2020-09-09] MEDS ORDERED: ACET-2267 PO (15:57)
[2020-09-09] MEDS ORDERED: FLUT1DIS26 INH (15:57)
--- NOTE | 2020-09-09 15:58 | NUR ---
SPOKE WITH PT, CALLED [facility]ON[facility] AND WENT THRU THE EXT MED HISTORY TO COMPLETE THE MED REC PT WAS ABLE TO NAME ALL HER MEDICATIONS WELL WHEN/HOW SHE TAKES EACH ADVAIR 250/50- PT VERIFIED SHE USES 1 PUFF DAILY EVEN THOUGH THE DIRECTIONS PER [facility]ON[facility] ARE 1 PUFF BID OTC MEDS: FLONASE TYLENOL
[2020-09-09 16:23] VITALS: BP 133/61
[2020-09-09] MEDS ORDERED: RT-ALBUTEROL/IPRATROPIUM 3 ML (DUONEB) VIAL INH PRN (16:30)
[2020-09-09] MEDS: ACETAMINOPHEN 500 MG TAB (TYLENOL) PO PRN (16:41)
--- NOTE | 2020-09-09 17:49 | Consultation-Cardiology ---
HPI-Cardiology Cardiology Consultation: Date of Consultation 09/09/20 Time Seen by a Provider: 16:30 Date of Admission Attending Physician Beverly Draper DO Admitting Physician Beverly Draper DO Consulting Physician CHRIS VILLAR MD, FACP, FACC HPI: Chief Complaint: CC: Shortness of breath and gen malaise HPI Ms. Trevino is a 64 yr old female admitted to [facility] with c/o generally feeling unwell. She reports she donated blood on Aug 27, 2020 and since then she has not felt well. She reports low grade fevers at home, typically in the evening, as high as 102. She reports elevated HR at times ranging from 90's-130's with exertion, which will typically resolve with rest, Reports it does not feel irregular, just fast. She reports she has been checking her oxygen sat at home and noted it to be in the mid to upper 90's. She denies any c/o CP, syncope or near syncope. No LE swelling. She reports some mod OCAMPO. She states she had COVID in May. She states she was recently tested for COVID again, flu A and B which she reports were negative. She does report nausea, but not vomiting or diarrhea. She states she has never been hospitalized before. Review of Systems-Cardiology Review of Systems Constitutional: No chills; fever, malaise Eyes: No vision change Ears/Nose/Throat: No recent hearing loss Respiratory: As described under HPI Cardiovascular: As described under HPI Gastrointestinal: No diarrhea; nausea; No vomiting Genitourinary: No dysuria Musculoskeletal: no symptoms reported Skin: No rash on exposed areas, No ulcerations on exposed areas Psychiatric/Neurological: No focal weakness, No syncope Hematologic: No bleeding abnormalities MCF-Ryexim-Ytirsc Hx Patient Social History 2nd Hand Smoke Exposure: No Recent Foreign Travel: No Recent Infectious Disease Expo: No Immunizations Up To Date Tetanus Booster (TDap): Unknown Date of Influenza Vaccine: Jun 18, 2020 Past Medical History PMH As described under Assessment. Family Medical History Family Medical History: She reports her mother had CAD and a CVA as well as a pacemaker. Allergies and Home Medications Allergies Coded Allergies: Penicillins (Verified Allergy, Unknown, 09/09/20) Home Medications Acetaminophen 500 Mg Tablet, 500-1,000 MG PO Q8H PRN for PAIN-MILD (1-4), (Reported) Atorvastatin Calcium 10 Mg Tablet, 10 MG PO DAILY, (Reported) Fluticasone Propionate 9.9 Ml [place].susp, 2 SPRAY NS DAILY, (Reported) Fluticasone/Salmeterol 1 Each Blst.w.dev, 1 PUFF INH DAILY, (Reported) Venlafaxine HCl 150 Mg Cap.er.24h, 150 MG PO DAILY, (Reported) Patient Home Medication List Home Medication List Reviewed: Yes Physical Exam-Cardiology Physical Exam Vital Signs/I&O 09/09/20 09/09/20 09/09/20 09/09/20 11:38 12:00 12:41 15:25 Temp 36.6 36.6 Pulse 108 100 108 Resp 18 18 B/P (MAP) 125/80 125/80 (95) Pulse Ox 96 96 98 O2 Delivery Room Air Room Air Room Air 09/09/20 09/09/20 15:25 16:23 Temp 36.6 38.2 Pulse 108 108 Resp 20 B/P (MAP) 133/61 (85) Pulse Ox 96 94 O2 Delivery Room Air Capillary Refill : Constitutional: AAO x 3, well-developed, well-nourished HEENT: PERRL, hearing is well preserved, oral hygience is good Neck: No carotid bruit; carotid pulses are 2 + bilaterally Respiratory: No accessory muscle use, No respiratory distress; chest expansion is symmetric, chest is bilaterally symmetric, lungs clear to auscultation Cardiovascular: regular rate-rhythm; No JVD; S1 and S2 Gastrointestinal: No tender; soft, round, audible bowel sounds Extremities: no lower extremity edema bilateral Neurologic/Psychiatric: grossly intact (moves all extremities) Skin: No rash on exposed areas, No ulcerations on exposed areas Data Review Labs Laboratory Tests 09/09/20 11:45: White Blood Count 12.0H, Red Blood Count 3.86, Hemoglobin 11.2L, Hematocrit 35, Mean Corpuscular Volume 90, Mean Corpuscular Hemoglobin 29, Mean Corpuscular Hemoglobin Concent 32, Red Cell Distribution Width 14.2, Platelet Count 296, Mean Platelet Volume 10.3, Immature Granulocyte % (Auto) 0, Neutrophils (%) (Auto) 25L, Lymphocytes (%) (Auto) 67H, Monocytes (%) (Auto) 5, Eosinophils (%) (Auto) 2, Basophils (%) (Auto) 1, Neutrophils # (Auto) 3.0, Lymphocytes # (Auto) 8.0H, Monocytes # (Auto) 0.6, Eosinophils # (Auto) 0.2, Basophils # (Auto) 0.1, Immature Granulocyte # (Auto) 0.0, Neutrophils % (Manual) 36, Lymphocytes % (Manual) 25, Monocytes % (Manual) 4, Eosinophils % (Manual) 2, Band Neutrophils 3, Reactive Lymphocytes 30, Blood Morphology Comment NORMAL, Erythrocyte Sedimentation Rate 14, Sodium Level 136, Potassium Level 3.6, Chloride Level 103, Carbon Dioxide Level 20L, Anion Gap 13, Blood Urea Nitrogen 8, Creatinine 0.77, Estimat Glomerular Filtration Rate > 60, BUN/Creatinine Ratio 10, Glucose Level 105, Lactic Acid Level 2.41*H, Calcium Level 8.4L, Corrected Calcium 9.0, Total Bilirubin 0.9, Aspartate Amino Transf (AST/SGOT) 142H, Alanine Aminotransferase (ALT/SGPT) 272H, Alkaline Phosphatase 166H, C-Reactive Protein High Sensitivity 2.06H, Total Protein 6.6, Albumin 3.3, Procalcitonin 0.15H, Smear Scan YES 09/09/20 13:48: Lactic Acid Level 1.96 09/09/20 15:00: Urine Color YELLOW, Urine Clarity CLEAR, Urine pH 6.0, Urine Specific [place]well <=1.005, Urine Protein NEGATIVE, Urine Glucose (UA) NEGATIVE, Urine Ketones NEGATIVE, Urine Nitrite NEGATIVE, Urine Bilirubin NEGATIVE, Urine Urobilinogen 4.0, Urine Leukocyte Esterase NEGATIVE, Urine RBC (Auto) NEGATIVE, Urine RBC NONE, Urine WBC NONE, Urine Squamous Epithelial Cells RARE, Urine Crystals NONE, Urine Bacteria NEGATIVE, Urine Casts NONE, Urine Mucus NEGATIVE, Urine Culture Indicated NO 09/09/20 15:50: Lactic Acid Level 1.18 A/P-Cardiology Assessment/Admission Diagnosis Propionibacterium acnes sepsis of undetermined source - Dr Draper managing OCAMPO w/o any clinical CHF Echo 09/09/20: LVEF 60-65%, normal PASP, no evidence of endocarditis on trans- thoracic echocardiography Palpitations of undetermined etiology H/O COVID in May 2020 MPI of May [address] Davis showed no signif ischemia or infarction. LVEF 58% Hepatitis (transaminase elevation) of undetermined etiology. Abd u/s on 09/09/20: hepatomegaly and hepatic steatosis w/o evidence of cholelithiasis or acute cholecystitis. Pulm lesion. CT chest on 09/09/20: indeterminate 6 mm right lower lobe pulmonary nodule. Discussion and Recomendations Tele Management of sepsis and liver and pulm lesions is with Dr Draper If no source of sepsis found, then consider LAKHWINDER Monitor labs Clinical Quality Measures DVT/VTE Risk/Contraindication: Risk Factor Score Per Nursin RFS Level Per Nursing on Admit: 4+=Very High CHRIS VILLAR MD FACP FAC CCDS Sep 09, 2020 17:49
[2020-09-09 19:25] VITALS: BP 110/71
[2020-09-09] MEDS: IBUPROFEN TABLET 200 MG TAB PO PRN (20:13)
[2020-09-09] MEDS: SENNA W/DOCUSATE (SENOKOT S) TABLET PO SCH (20:13)
[2020-09-10] VITALS: BP 111/69
[2020-09-10] MEDS: VANCOMYCIN 1250 MG/NS 250 ML IVPB IV SCH ×4 (01:28→13:19)
[2020-09-10] MEDS: MEROPENEM 500 MG/SWFI 10 ML IV PUSH IV SCH ×8 (01:28→18:28)
[2020-09-10 04:00] VITALS: BP 114/69
[2020-09-10 05:50] LABS: BUN/CREATININE RATIO 10; CALCIUM 7.6 MG/DL (8.5-10.1); CARBON DIOXIDE 24 MMOL/L (21-32); CHLORIDE 112 MMOL/L (98-107); CREATININE SERUM 0.62 MG/DL (0.60-1.30); GFR ESTIMATED > 60; GLUCOSE 89 MG/DL (70-105); POTASSIUM 3.5 MMOL/L (3.6-5.0); SODIUM 142 MMOL/L (135-145)
[2020-09-10] MEDS: VENlafaxine XR 75 MG (EFFEXOR XR) CAP PO SCH (06:42)
--- NOTE | 2020-09-10 07:08 | Progress Note - Hospitalist ---
Subjective HPI/CC On Admission Date Seen by Provider: Sep 10, 2020 Time Seen by Provider: 11:00 CC: Fever with tachycardia and elevated lactic acid with outpatient blood culture with Propionibacterium acnes HPI: This is a 64yoWF clinic patient of mine for the past 16 years who has a h/o asthma, chronic cough and anxiety with HLP who presents to [facility] as a direct admit from home due to continued to fever with tachycardia and outpatient blood culture with Propionibacterium acnes. She had COVID-19 in May which resolved without much intervention. She reports that she had her teeth cleaned at [facility] on 08/11/20 and had no concerns about her dental health. She gave blood on 08/27/20 and has since felt ill. She went to ER on 08/28/20 due to tachycardia and recurrent fever and all tests were normal so she was told to monitor fever and take Tylenol for fever and she saw me in follow up and patient seemed to be better. She has continued to work at [employer]. Patient reported continued fever so I initiated an outpatient w/u and appt today at the clinic but 6 days after blood work done the BCx revealed Propionibacterium acnes in anaerobic bottle/ I suspected deep seated abscess so I admitted her and consulted Cardiology for possible endocarditis evaluation. CT scans revealed lung nodule which I suspect to be a small abscess. PICC line was placed on Meropenem initiated and 4 sets of blood cultures were obtained prior to abx to secure bacterermia again. USG revealed steatosis. Xanax will be provided for anxiety. Subjective/Events-last exam Updated patient on lung nodule likely abscess No indication of endocarditis Abx maintained and tolerated PICC line in place BCx NGTD but will take 6 days for anaerobic bacteria to grow like outpatient drawn Bcx No more fever or tachycardia HLIVF Review of Systems General: Fatigue, Malaise Neurological: Weakness Focused Exam Lactate Level 09/09/20 11:45: Lactic Acid Level 2.41*H 09/09/20 13:48: Lactic Acid Level 1.96 09/09/20 15:50: Lactic Acid Level 1.18 Objective Exam Vital Signs Vital Signs Date Time Temp Pulse Resp B/P (MAP) Pulse Ox O2 Delivery O2 Flow Rate FiO2 09/11/20 04:00 36.3 94 18 136/77 (96) 95 Room Air Capillary Refill : Less Than 3 Seconds General Appearance: No Apparent Distress, WD/WN, Anxious, Chronically ill Respiratory: Chest Non Tender, Lungs Clear, Normal Breath Sounds, No Accessory Muscle Use, No Respiratory Distress Cardiovascular: Regular Rate, Rhythm, No Edema, No Gallop, No JVD, No Murmur, Normal Peripheral Pulses Neurologic/Psychiatric: Alert, Oriented x3, No Motor/Sensory Deficits, Normal Mood/Affect Results/Procedures Lab Patient resulted labs reviewed. Assessment/Plan Assessment and Plan Assess & Plan/Chief Complaint Assessment: Bacteremia Propionibacterium acnes in outpatient blood Cx, ordered 4 sets of BCx on admit to confirm, likely from teeth cleaning 08/11/20 now with 6mm RLL presumed abscess placed on Meropenem and Vanc empirically and PICC line placed COVID-19 05/2020 repeat COVID negative this week Asthma HLP Elevated LFT's Hepatic steatosis on USG Plan: PICC line Abx Monitor closely Cardiology evaluation Monitor labs 09/10/20: PICC line Abx Monitor labs Diagnosis/Problems Diagnosis/Problems (1) Bacteremia (2) Lung abscess (3) Propionibacterium infection (4) Lactic acid acidosis (5) Dehydration (6) Asthma (7) Liver enzyme elevation (8) Hyperlipemia (9) Sinus tachycardia Status: Acute Clinical Quality Measures DVT/VTE Risk/Contraindication: Risk Factor Score Per Nursin RFS Level Per Nursing on Admit: 4+=Very High TREMAINE TO DO Sep 10, 2020 07:08
[2020-09-10 07:40] VITALS: BP 112/68
[2020-09-10] MEDS: NS IV 1000 ML 1,000 ML IV SCH (08:28)
[2020-09-10] MEDS: SENNA W/DOCUSATE (SENOKOT S) TABLET PO SCH ×2 (08:28→20:27)
[2020-09-10] MEDS ORDERED: FLUTICASONE NASAL SPRAY (FLONASE) 16 GM BTL NS SCH (09:00)
[2020-09-10] MEDS: PATIENT MAY USE OWN MED,SINGLE MED INH SCH ×2 (09:44→10:12)
[2020-09-10] MEDS: FLUTICASONE NASAL SPRAY (FLONASE) 16 GM BTL NS SCH (10:10)
[2020-09-10 11:29] VITALS: BP 134/72
[2020-09-10] MEDS: ENOXAPARIN 40 MG/0.4 ML (LOVENOX) SYR SC SCH (12:07)
[2020-09-10] MEDS: IBUPROFEN TABLET 200 MG TAB PO PRN (13:39)
--- NOTE | 2020-09-10 13:40 | NUR ---
MOTRIN 2 PO FOR C/O BACKPAIN.
--- NOTE | 2020-09-10 15:29 | Progress Note - Cardiology ---
Cardiology SOAP Progress Note Subjective: Feels better today No cp or palp or syncope or shortness of breath Malaise has improved Objective: I&O/Vital Signs 09/10/20 09/10/20 09/10/20 09/10/20 04:00 06:51 07:40 08:37 Temp 36.0 36.4 Pulse 74 83 88 Resp 18 16 B/P (MAP) 114/69 (84) 112/68 (83) Pulse Ox 96 96 96 O2 Delivery Room Air Room Air Room Air 09/10/20 09/10/20 11:29 12:39 Temp 36.8 Pulse 90 104 Resp 16 B/P (MAP) 134/72 (92) Pulse Ox 97 O2 Delivery Room Air 09/09/20 23:59 Intake Total 3040 ml Balance 3040 ml Weight (Pounds): 177 Weight (Ounces): 0.0 Weight (Calculated Kilograms): [id number] Constitutional: AAO x 3, well-developed, well-nourished Respiratory: No accessory muscle use, No respiratory distress; chest expansion is symmetric, chest is bilaterally symmetric, lungs clear to auscultation Cardiovascular: regular rate-rhythm; No JVD; S1 and S2 Gastrointestional: No tender; soft, round, audible bowel sounds Extremities: no lower extremity edema bilateral Neurologic/Psychiatric: grossly intact (moves all extremities) Skin: No rash on exposed areas, No ulcerations on exposed areas Results/Procedures: Labs Laboratory Tests 09/09/20 15:50: Lactic Acid Level 1.18 09/10/20 05:20: Sodium Level 142, Potassium Level 3.5L, Chloride Level 112H, Carbon Dioxide Level 24, Anion Gap 6, Blood Urea Nitrogen 6L, Creatinine 0.62, Estimat Glomerular Filtration Rate > 60, BUN/Creatinine Ratio 10, Glucose Level 89, Calcium Level 7.6L, Magnesium Level 2.0, Thyroid Stimulating Hormone (TSH) 1.15 Laboratory Tests 09/09/20 11:45 09/10/20 05:20 A/P: Assessment: Propionibacterium acnes sepsis, probably from a lung abscess - Dr Draper managing Echo 09/09/20: LVEF 60-65%, normal PASP, no evidence of endocarditis on trans- thoracic echocardiography H/O COVID in May 2020 MPI of May [address] Davis showed no signif ischemia or infarction. LVEF 58% Hepatitis (transaminase elevation) of undetermined etiology, Dr Draper managing. Abd u/s on 09/09/20: hepatomegaly and hepatic steatosis w/o evidence of michel lithiasis or acute cholecystitis. Pulm lesion. CT chest on 09/09/20: indeterminate 6 mm right lower lobe pulmonary nodule, Dr Draper managing Plan: Management of sepsis and liver and pulm lesions is with Dr Draper Given that Dr Draepr is suspecting a lung abscess to be the source of pt's sepsis, we will hold off on LAKHWINDER Monitor labs CHRIS VILLAR MD FACP FACC CCDS Sep 10, 2020 15:29
[2020-09-10 15:47] VITALS: BP 126/71
[2020-09-10 20:47] VITALS: BP 120/70
[2020-09-11] VITALS: BP 133/79
[2020-09-11] MEDS ORDERED: TROUGH ORDER-PHARMACY XX NR
[2020-09-11] MEDS: MEROPENEM 500 MG/SWFI 10 ML IV PUSH IV SCH ×8 (00:27→17:47)
[2020-09-11] MEDS: VANCOMYCIN 1250 MG/NS 250 ML IVPB IV SCH ×4 (01:28→13:08)
[2020-09-11 04:00] VITALS: BP 136/77
[2020-09-11] MEDS: VENlafaxine XR 75 MG (EFFEXOR XR) CAP PO SCH (05:42)
[2020-09-11 06:00] LABS: BASOPHILS # (AUTO) 0.1 10^3/uL (0.0-0.1); BASOPHILS % (AUTO) 1 % (0-10); EOSINOPHILS # (AUTO) 0.3 10^3/uL (0.0-0.3); EOSINOPHILS % (AUTO) 2 % (0-10); HEMATOCRIT 30 % (35-52); HEMOGLOBIN 9.6 g/dL (11.5-16.0); LYMPHOCYTES # (AUTO) 10.3 10^3/uL (1.0-4.0); LYMPHOCYTES % (AUTO) 74 % (12-44); MEAN CORPUSCULAR HEMOGLOBIN 29 pg (25-34); MEAN CORPUSCULAR HGB CONC 32 g/dL (32-36); MEAN CORPUSCULAR VOLUME 91 fL (80-99); MEAN PLATELET VOLUME 9.9 fL (9.0-12.2); MONOCYTES # (AUTO) 0.5 10^3/uL (0.0-1.0); MONOCYTES % (AUTO) 4 % (0-12); NEUTROPHILS # (AUTO) 2.6 10^3/uL (1.8-7.8); NEUTROPHILS % (AUTO) 19 % (42-75); PLATELET COUNT 268 10^3/uL (130-400); WHITE BLOOD COUNT 13.9 10^3/uL (4.3-11.0)
[2020-09-11 06:12] LABS: ALBUMIN 2.7 GM/DL (3.2-4.5); CHLORIDE 109 MMOL/L (98-107); POTASSIUM 3.5 MMOL/L (3.6-5.0); SODIUM 139 MMOL/L (135-145)
[2020-09-11 06:13] LABS: CALCIUM 7.7 MG/DL (8.5-10.1)
[2020-09-11 06:14] LABS: GLUCOSE 97 MG/DL (70-105); TOTAL PROTEIN 5.5 GM/DL (6.4-8.2)
[2020-09-11 06:15] LABS: CARBON DIOXIDE 23 MMOL/L (21-32)
[2020-09-11 06:16] LABS: BILIRUBIN,TOTAL 0.6 MG/DL (0.1-1.0)
[2020-09-11 06:18] LABS: ALKALINE PHOSPHATASE 144 U/L (40-136); CREATININE SERUM 0.59 MG/DL (0.60-1.30); GFR ESTIMATED > 60
[2020-09-11 06:19] LABS: BUN/CREATININE RATIO 12
[2020-09-11 06:21] LABS: ALANINE AMINOTRANSFERASE 171 U/L (0-55)
[2020-09-11 07:30] VITALS: BP 132/72
[2020-09-11] MEDS: ACETAMINOPHEN 500 MG TAB (TYLENOL) PO PRN (08:48)
[2020-09-11] MEDS: FLUTICASONE NASAL SPRAY (FLONASE) 16 GM BTL NS SCH (08:49)
[2020-09-11] MEDS: SENNA W/DOCUSATE (SENOKOT S) TABLET PO SCH ×2 (08:49→20:08)
[2020-09-11] MEDS: PATIENT MAY USE OWN MED,SINGLE MED INH SCH (08:57)
[2020-09-11] MEDS: ENOXAPARIN 40 MG/0.4 ML (LOVENOX) SYR SC SCH (11:12)
[2020-09-11 11:20] VITALS: BP 121/77
--- NOTE | 2020-09-11 11:36 | Progress Note - Hospitalist ---
Subjective HPI/CC On Admission Date Seen by Provider: Sep 11, 2020 Time Seen by Provider: 11:00 CC: Fever with tachycardia and elevated lactic acid with outpatient blood culture with Propionibacterium acnes HPI: This is a 64yoWF clinic patient of mine for the past 16 years who has a h/o asthma, chronic cough and anxiety with HLP who presents to 405 as a direct admit from home due to continued to fever with tachycardia and outpatient blood culture with Propionibacterium acnes. She had COVID-19 in May which reso lved without much intervention. She reports that she had her teeth cleaned at [facility] on 08/11/20 and had no concerns about her dental health. She gave blood on 08/27/20 and has since felt ill. She went to ER on 08/28/20 due to tachycardia and recurrent fever and all tests were normal so she was told to monitor fever and take Tylenol for fever and she saw me in follow up and patient seemed to be better. She has continued to work at [employer]. Patient reported continued fever so I initiated an outpatient w/u and appt today at the clinic but 6 days after blood work done the BCx revealed Propionibacterium acnes in anaerobic bottle/ I suspected deep seated abscess so I admitted her and cons ulted Cardiology for possible endocarditis evaluation. CT scans revealed lung nodule which I suspect to be a small abscess. PICC line was placed on Meropenem initiated and 4 sets of blood cultures were obtained prior to abx to secure bacterermia again. USG revealed steatosis. Xanax will be provided for anxiety. Subjective/Events-last exam Patient doing well All 4 sets of BCx NGTD but it will take 5 days anaerobic bottles will turn + Abx tolerated PICC line maintained Monitor closely Labs noted elevated wbc 13.9 K+ 3.5 will give one time dose DC Tely Hgb 9.6 No fever since admit Review of Systems General: Fatigue Focused Exam Lactate Level 09/09/20 11:45: Lactic Acid Level 2.41*H 09/09/20 13:48: Lactic Acid Level 1.96 09/09/20 15:50: Lactic Acid Level 1.18 Objective Exam Vital Signs Vital Signs Date Time Temp Pulse Resp B/P (MAP) Pulse Ox O2 Delivery O2 Flow Rate FiO2 12/25/20 19:20 37.7 100 20 136/72 (93) 97 Room Air Capillary Refill : Less Than 3 SecondsLess Than 3 Seconds General Appearance: No Apparent Distress, WD/WN Respiratory: Chest Non Tender, Lungs Clear, Normal Breath Sounds, No Accessory Muscle Use, No Respiratory Distress Cardiovascular: Regular Rate, Rhythm, No Edema, No Gallop, No JVD, No Murmur, Normal Peripheral Pulses Neurologic/Psychiatric: Alert, Oriented x3, No Motor/Sensory Deficits, Normal Mood/Affect Results/Procedures Lab Laboratory Tests 09/11/20 05:45 Patient resulted labs reviewed. Assessment/Plan Assessment and Plan Assess & Plan/Chief Complaint Assessment: Bacteremia Propionibacterium acnes in outpatient blood Cx, ordered 4 sets of BCx on admit to confirm, likely from teeth cleaning 08/11/20 now with 6mm RLL presumed abscess placed on Meropenem and Vanc empirically and PICC line placed COVID-19 05/2020 repeat COVID negative this week Asthma HLP Elevated LFT's Hepatic steatosis on USG Plan: PICC line Abx Monitor closely Cardiology evaluation Monitor labs 09/10/20: PICC line Abx Monitor labs 09/11/20: Monitor for fever Monitor labs Broad spectrum abx lung abscess tx Diagnosis/Problems Diagnosis/Problems (1) Bacteremia (2) Lung abscess (3) Propionibacterium infection (4) Lactic acid acidosis (5) Dehydration (6) Asthma (7) Liver enzyme elevation (8) Hyperlipemia (9) Sinus tachycardia Status: Acute Clinical Quality Measures DVT/VTE Risk/Contraindication: Risk Factor Score Per Nursin RFS Level Per Nursing on Admit: 4+=Very High TREMAINE TO DO Sep 11, 2020 11:36
[2020-09-11] MEDS ORDERED: KCL 20 MEQ TAB (K-DUR) PO ONE (11:45)
--- NOTE | 2020-09-11 15:39 | Progress Note - Cardiology ---
Cardiology SOAP Progress Note Subjective: Gen weakness and malaise and shortness of breath have improved No cp or palp or syncope No n/v Objective: I&O/Vital Signs 09/11/20 09/11/20 09/11/20 09/11/20 04:00 07:00 07:30 07:36 Temp 36.3 36.9 Pulse 94 98 101 Resp 18 18 B/P (MAP) 136/77 (96) 132/72 (92) Pulse Ox 95 97 97 O2 Delivery Room Air Room Air Room Air 09/11/20 09/11/20 08:00 11:20 Temp 37.0 Pulse 97 Resp 18 B/P (MAP) 121/77 (92) Pulse Ox 97 O2 Delivery Room Air Room Air 09/11/20 00:00 Intake Total 1342.5 ml Balance 1342.5 ml Weight (Pounds): 177 Weight (Ounces): 0.0 Weight (Calculated Kilograms): 80.248463 Constitutional: AAO x 3, well-developed, well-nourished Respiratory: No accessory muscle use, No respiratory distress; chest expansion is symmetric, chest is bilaterally symmetric, lungs clear to auscultation Cardiovascular: regular rate-rhythm; No JVD; S1 and S2 Gastrointestional: No tender; soft, round, audible bowel sounds Extremities: no lower extremity edema bilateral Neurologic/Psychiatric: grossly intact (moves all extremities) Skin: No rash on exposed areas, No ulcerations on exposed areas Results/Procedures: Labs Laboratory Tests 09/11/20 00:28: Vancomycin Level Trough 12.1 09/11/20 05:45: White Blood Count 13.9H, Red Blood Count 3.34L, Hemoglobin 9.6L, Hematocrit 30L, Mean Corpuscular Volume 91, Mean Corpuscular Hemoglobin 29, Mean Corpuscular Hemoglobin Concent 32, Red Cell Distribution Width 14.6H, Platelet Count 268, Mean Platelet Volume 9.9, Immature Granulocyte % (Auto) 0, Neutrophils (%) (Auto) 19L, Lymphocytes (%) (Auto) 74H, Monocytes (%) (Auto) 4, Eosinophils (%) (Auto) 2, Basophils (%) (Auto) 1, Neutrophils # (Auto) 2.6, Lymphocytes # (Auto) 10.3H, Monocytes # (Auto) 0.5, Eosinophils # (Auto) 0.3, Basophils # (Auto) 0.1, Immature Granulocyte # (Auto) 0.0, Sodium Level 139, Potassium Level 3.5L, Chloride Level 109H, Carbon Dioxide Level 23, Anion Gap 7, Blood Urea Nitrogen 7, Creatinine 0.59L, Estimat Glomerular Filtration Rate > 60, BUN/Creatinine Ratio 12, Glucose Level 97, Calcium Level 7.7L, Corrected Calcium 8.7, Total Bilirubin 0.6, Aspartate Amino Transf (AST/SGOT) 83H, Alanine Aminotransferase (ALT/SGPT) 171H, Alkaline Phosphatase 144H, Total Protein 5.5L, Albumin 2.7L Microbiology 09/09/20 Blood Culture - Preliminary, Resulted No growth Laboratory Tests 09/10/20 05:20 09/11/20 05:45 A/P: Assessment: Propionibacterium acnes sepsis, probably from a lung abscess - Dr Draper managing Echo 09/09/20: LVEF 60-65%, normal PASP, no evidence of endocarditis on trans- thoracic echocardiography H/O COVID in May 2020 MPI of May [address] Davis showed no signif ischemia or infarction. LVEF 58% Hepatitis (transaminase elevation) of undetermined etiology, Dr Draper managing. Abd u/s on 09/09/20: hepatomegaly and hepatic steatosis w/o evidence of cholelithiasis or acute cholecystitis. Pulm lesion. CT chest on 09/09/20: indeterminate 6 mm right lower lobe pulmonary nodule, Dr Draper managing Plan: Management of sepsis and liver and pulm lesions is with Dr Draper Given that Dr Draper is suspecting a lung abscess to be the source of pt's sepsis, we will hold off on LAKHWINDER Monitor labs. Transaminases show improvement Outpt cardiac f/u advised CHRIS VILLAR MD FACP FAC CCDS Sep 11, 2020 15:39
[2020-09-11 15:50] VITALS: BP 131/66
[2020-09-11 19:20] VITALS: BP 136/72
[2020-09-11] MEDS: IBUPROFEN TABLET 200 MG TAB PO PRN (20:09)
[2020-09-12] VITALS: BP 120/67
[2020-09-12] MEDS: MEROPENEM 500 MG/SWFI 10 ML IV PUSH IV SCH ×8 (01:13→18:12)
[2020-09-12] MEDS: VANCOMYCIN 1250 MG/NS 250 ML IVPB IV SCH ×4 (01:14→13:33)
[2020-09-12 04:00] VITALS: BP 112/67
[2020-09-12] MEDS: VENlafaxine XR 75 MG (EFFEXOR XR) CAP PO SCH (06:28)
--- NOTE | 2020-09-12 07:18 | Progress Note - Hospitalist ---
Subjective HPI/CC On Admission Date Seen by Provider: Sep 12, 2020 Time Seen by Provider: 12:00 CC: Fever with tachycardia and elevated lactic acid with outpatient blood culture with Propionibacterium acnes HPI: This is a 64yoWF clinic patient of mine for the past 16 years who has a h/o asthma, chronic cough and anxiety with HLP who presents to 405 as a direct admit from home due to continued to fever with tachycardia and outpatient blood culture with Propionibacterium acnes. She had COVID-19 in May which reso lved without much intervention. She reports that she had her teeth cleaned at [facility] on 08/11/20 and had no concerns about her dental health. She gave blood on 08/27/20 and has since felt ill. She went to ER on 08/28/20 due to tachycardia and recurrent fever and all tests were normal so she was told to monitor fever and take Tylenol for fever and she saw me in follow up and patient seemed to be better. She has continued to work at [employer]. Patient reported continued fever so I initiated an outpatient w/u and appt today at the clinic but 6 days after blood work done the BCx revealed Propionibacterium acnes in anaerobic bottle/ I suspected deep seated abscess so I admitted her and cons ulted Cardiology for possible endocarditis evaluation. CT scans revealed lung nodule which I suspect to be a small abscess. PICC line was placed on Meropenem initiated and 4 sets of blood cultures were obtained prior to abx to secure bacterermia again. USG revealed steatosis. Xanax will be provided for anxiety. Subjective/Events-last exam Patient wants to go home BCx x 4 sets NGTD IV abx will be needed then repeat CT chest No fever wbc still elevated PICC line functioning well Review of Systems General: Fatigue, Malaise Focused Exam Lactate Level Objective Exam Vital Signs Vital Signs Date Time Temp Pulse Resp B/P (MAP) Pulse Ox O2 Delivery O2 Flow Rate FiO2 09/12/20 16:00 36.6 102 16 115/65 (82) 94 Room Air Capillary Refill : Less Than 3 SecondsLess Than 3 Seconds General Appearance: No Apparent Distress, WD/WN, Chronically ill Respiratory: Chest Non Tender, Lungs Clear, Normal Breath Sounds, No Accessory Muscle Use, No Respiratory Distress Cardiovascular: Regular Rate, Rhythm, No Edema, No Gallop, No JVD, No Murmur, Normal Peripheral Pulses Neurologic/Psychiatric: Alert, Oriented x3, No Motor/Sensory Deficits, Normal Mood/Affect Results/Procedures Lab Laboratory Tests 09/12/20 08:04 Patient resulted labs reviewed. Assessment/Plan Assessment and Plan Assess & Plan/Chief Complaint Assessment: Bacteremia Propionibacterium acnes in outpatient blood Cx, ordered 4 sets of BCx on admit to confirm, likely from teeth cleaning 08/11/20 now with 6mm RLL pre sumed abscess placed on Meropenem and Vanc empirically and PICC line placed COVID-19 05/2020 repeat COVID negative this week Asthma HLP Elevated LFT's Hepatic steatosis on USG Plan: PICC line Abx Monitor closely Cardiology evaluation Monitor labs 09/10/20: PICC line Abx Monitor labs 09/11/20: Monitor for fever Monitor labs Broad spectrum abx lung abscess tx 09/12/20: IV abx PICC line Check GGT with INR in am Monitor LFT's held statin and any significant hepatic toxic meds Diagnosis/Problems Diagnosis/Problems (1) Bacteremia (2) Lung abscess (3) Propionibacterium infection (4) Lactic acid acidosis (5) Dehydration (6) Asthma (7) Liver enzyme elevation (8) Hyperlipemia (9) Sinus tachycardia Status: Acute Clinical Quality Measures DVT/VTE Risk/Contraindication: Risk Factor Score Per Nursin RFS Level Per Nursing on Admit: 4+=Very High TREMAINE TO DO Sep 12, 2020 07:18
[2020-09-12 08:00] VITALS: BP 126/67
[2020-09-12 08:15] LABS: BASOPHILS # (AUTO) 0.1 10^3/uL (0.0-0.1); BASOPHILS % (AUTO) 1 % (0-10); EOSINOPHILS # (AUTO) 0.3 10^3/uL (0.0-0.3); EOSINOPHILS % (AUTO) 2 % (0-10); HEMATOCRIT 32 % (35-52); HEMOGLOBIN 10.4 g/dL (11.5-16.0); LYMPHOCYTES % (AUTO) 73 % (12-44); MEAN CORPUSCULAR HEMOGLOBIN 30 pg (25-34); MEAN CORPUSCULAR HGB CONC 33 g/dL (32-36); MEAN CORPUSCULAR VOLUME 90 fL (80-99); MEAN PLATELET VOLUME 9.9 fL (9.0-12.2); MONOCYTES # (AUTO) 0.5 10^3/uL (0.0-1.0); MONOCYTES % (AUTO) 4 % (0-12); NEUTROPHILS # (AUTO) 2.7 10^3/uL (1.8-7.8); NEUTROPHILS % (AUTO) 20 % (42-75); PLATELET COUNT 315 10^3/uL (130-400); WHITE BLOOD COUNT 13.7 10^3/uL (4.3-11.0)
[2020-09-12] MEDS: ACETAMINOPHEN 500 MG TAB (TYLENOL) PO PRN (08:15)
[2020-09-12] MEDS: FLUTICASONE NASAL SPRAY (FLONASE) 16 GM BTL NS SCH (08:16)
[2020-09-12] MEDS: SENNA W/DOCUSATE (SENOKOT S) TABLET PO SCH ×2 (08:16→21:00)
[2020-09-12] MEDS: PATIENT MAY USE OWN MED,SINGLE MED INH SCH (08:17)
[2020-09-12 08:23] LABS: ALBUMIN 2.8 GM/DL (3.2-4.5); CHLORIDE 107 MMOL/L (98-107); POTASSIUM 3.6 MMOL/L (3.6-5.0); SODIUM 138 MMOL/L (135-145)
[2020-09-12 08:24] LABS: CALCIUM 7.8 MG/DL (8.5-10.1)
[2020-09-12 08:25] LABS: GLUCOSE 115 MG/DL (70-105)
[2020-09-12 08:26] LABS: TOTAL PROTEIN 5.9 GM/DL (6.4-8.2)
[2020-09-12 08:27] LABS: CARBON DIOXIDE 22 MMOL/L (21-32)
[2020-09-12 08:28] LABS: BILIRUBIN,TOTAL 0.6 MG/DL (0.1-1.0)
[2020-09-12 08:29] LABS: ALKALINE PHOSPHATASE 146 U/L (40-136); CREATININE SERUM 0.58 MG/DL (0.60-1.30); GFR ESTIMATED > 60
[2020-09-12 08:30] LABS: BUN/CREATININE RATIO 10
[2020-09-12 08:32] LABS: ALANINE AMINOTRANSFERASE 162 U/L (0-55)
[2020-09-12 11:25] VITALS: BP 127/63
[2020-09-12] MEDS: ENOXAPARIN 40 MG/0.4 ML (LOVENOX) SYR SC SCH (13:13)
--- NOTE | 2020-09-12 15:24 | Progress Note - Cardiology ---
Cardiology SOAP Progress Note Subjective: Weakness and malaise has improved No shortness of breath No cp or palp or syncope No n/v/d Objective: I&O/Vital Signs 09/12/20 09/12/20 09/12/20 09/12/20 04:00 07:57 08:00 11:25 Temp 36.3 36.6 37.0 Pulse 82 102 96 Resp 18 18 18 B/P (MAP) 112/67 (82) 126/67 (86) 127/63 (84) Pulse Ox 95 94 95 95 O2 Delivery Room Air Room Air Room Air Room Air 09/12/20 00:00 Intake Total 1040 ml Balance 1040 ml Weight (Pounds): 177 Weight (Ounces): 0.0 Weight (Calculated Kilograms): 80.416516 Constitutional: AAO x 3, well-developed, well-nourished Respiratory: No accessory muscle use, No respiratory distress; chest expansion is symmetric, chest is bilaterally symmetric, lungs clear to auscultation Cardiovascular: regular rate-rhythm; No JVD; S1 and S2 Gastrointestional: No tender; soft, round, audible bowel sounds Extremities: no lower extremity edema bilateral Neurologic/Psychiatric: grossly intact (moves all extremities) Skin: No rash on exposed areas, No ulcerations on exposed areas Results/Procedures: Labs Laboratory Tests 09/12/20 08:04: White Blood Count 13.7H, Red Blood Count 3.53L, Hemoglobin 10.4L, Hematocrit 32L , Mean Corpuscular Volume 90, Mean Corpuscular Hemoglobin 30, Mean Corpuscular Hemoglobin Concent 33, Red Cell Distribution Width 15.0H, Platelet Count 315, Mean Platelet Volume 9.9, Immature Granulocyte % (Auto) 0, Neutrophils (%) (Auto) 20L, Lymphocytes (%) (Auto) 73H, Monocytes (%) (Auto) 4, Eosinophils (%) (Auto) 2, Basophils (%) (Auto) 1, Neutrophils # (Auto) 2.7, Lymphocytes # (Auto) 10.0H, Monocytes # (Auto) 0.5, Eosinophils # (Auto) 0.3, Basophils # (Auto) 0.1, Immature Granulocyte # (Auto) 0.0, Sodium Level 138, Potassium Level 3.6, Chloride Level 107, Carbon Dioxide Level 22, Anion Gap 9, Blood Urea Nitrogen 6L , Creatinine 0.58L, Estimat Glomerular Filtration Rate > 60, BUN/Creatinine Ratio 10, Glucose Level 115H, Calcium Level 7.8L, Corrected Calcium 8.8, Total Bilirubin 0.6, Aspartate Amino Transf (AST/SGOT) 92H, Alanine Aminotransferase (ALT/SGPT) 162H, Alkaline Phosphatase 146H, Total Protein 5.9L, Albumin 2.8L Microbiology 09/09/20 Blood Culture - Preliminary, Resulted No growth Laboratory Tests 09/11/20 05:45 09/12/20 08:04 A/P: Assessment: Propionibacterium acnes sepsis, probably from a lung abscess - Dr Draper managing Echo 09/09/20: LVEF 60-65%, normal PASP, no evidence of endocarditis on trans- thoracic echocardiography H/O COVID in May 2020 MPI of May [address] Davis showed no signif ischemia or infarction. LVEF 58% Hepatitis (transaminase elevation) of undetermined etiology, Dr rDaper managing. Abd u/s on 09/09/20: hepatomegaly and hepatic steatosis w/o evidence of cholelithiasis or acute cholecystitis. Pulm lesion. CT chest on 09/09/20: indeterminate 6 mm right lower lobe pulmonary nodule, Dr Draper managing Plan: Management of sepsis and liver and pulm lesions is with Dr Draper Given that Dr Draper is suspecting a lung abscess to be the source of pt's sepsis, we will hold off on LAKHWINDER Monitor labs. Transaminases show improvement Outpt cardiac f/u advised CHRIS VILLAR MD FACP FAC CCDS Sep 12, 2020 15:24
[2020-09-12 16:00] VITALS: BP 115/65
[2020-09-12 21:00] VITALS: BP 126/71
[2020-09-13 00:06] VITALS: BP 138/75
[2020-09-13] MEDS: MEROPENEM 500 MG/SWFI 10 ML IV PUSH IV SCH ×8 (01:14→18:32)
[2020-09-13] MEDS: VANCOMYCIN 1250 MG/NS 250 ML IVPB IV SCH ×4 (01:15→13:11)
[2020-09-13 04:00] VITALS: BP 136/81
--- NOTE | 2020-09-13 06:29 | Progress Note - Hospitalist ---
Subjective HPI/CC On Admission Date Seen by Provider: Sep 13, 2020 Time Seen by Provider: 12:30 CC: Fever with tachycardia and elevated lactic acid with outpatient blood culture with Propionibacterium acnes HPI: This is a 64yoWF clinic patient of mine for the past 16 years who has a h/o asthma, chronic cough and anxiety with HLP who presents to 405 as a direct admit from home due to continued to fever with tachycardia and outpatient blood culture with Propionibacterium acnes. She had COVID-19 in May which reso lved without much intervention. She reports that she had her teeth cleaned at [facility] on 08/11/20 and had no concerns about her dental health. She gave blood on 08/27/20 and has since felt ill. She went to ER on 08/28/20 due to tachycardia and recurrent fever and all tests were normal so she was told to monitor fever and take Tylenol for fever and she saw me in follow up and patient seemed to be better. She has continued to work at [employer]. Patient reported continued fever so I initiated an outpatient w/u and appt today at the clinic but 6 days after blood work done the BCx revealed Propionibacterium acnes in anaerobic bottle/ I suspected deep seated abscess so I admitted her and cons ulted Cardiology for possible endocarditis evaluation. CT scans revealed lung nodule which I suspect to be a small abscess. PICC line was placed on Meropenem initiated and 4 sets of blood cultures were obtained prior to abx to secure bacterermia again. USG revealed steatosis. Xanax will be provided for anxiety. Subjective/Events-last exam Had a long conversation with the patient and daughter Hematology will evaluate elevated wbc to assure no hematological malignancy causing this BCx NGTD PICC line functioning well No more fever noted Review of Systems General: Fatigue Objective Exam Vital Signs Vital Signs Date Time Temp Pulse Resp B/P (MAP) Pulse Ox O2 Delivery O2 Flow Rate FiO2 09/13/20 15:59 36.8 102 18 110/69 (83) 96 Room Air Capillary Refill : Less Than 3 SecondsLess Than 3 Seconds General Appearance: No Apparent Distress, WD/WN, Anxious Respiratory: Chest Non Tender, Lungs Clear, Normal Breath Sounds, No Accessory Muscle Use, No Respiratory Distress Cardiovascular: Regular Rate, Rhythm, No Edema, No Gallop, No JVD, No Murmur, Normal Peripheral Pulses Neurologic/Psychiatric: Alert, Oriented x3, No Motor/Sensory Deficits, Normal Mood/Affect Results/Procedures Lab Laboratory Tests 09/13/20 06:15 Patient resulted labs reviewed. Assessment/Plan Assessment and Plan Assess & Plan/Chief Complaint Assessment: Bacteremia Propionibacterium acnes in outpatient blood Cx, ordered 4 sets of BCx on admit to confirm, likely from teeth cleaning 08/11/20 now with 6mm RLL presumed abscess placed on Meropenem and Vanc empirically and PICC line placed COVID-19 05/2020 repeat COVID negative this week Asthma HLP Elevated LFT's Hepatic steatosis on USG Plan: PICC line Abx Monitor closely Cardiology evaluation Monitor labs 09/10/20: PICC line Abx Monitor labs 09/11/20: Monitor for fever Monitor labs Broad spectrum abx lung abscess tx 09/12/20: IV abx PICC line Check GGT with INR in am Monitor LFT's held statin and any significant hepatic toxic meds 09/13/20: Lung abscess treatment Dr Gill consultation Diagnosis/Problems Diagnosis/Problems (1) Bacteremia (2) Lung abscess (3) Propionibacterium infection (4) Lactic acid acidosis (5) Dehydration (6) Asthma (7) Liver enzyme elevation (8) Hyperlipemia (9) Sinus tachycardia Status: Acute Clinical Quality Measures DVT/VTE Risk/Contraindication: Risk Factor Score Per Nursin RFS Level Per Nursing on Admit: 4+=Very High TREMAINE TO DO Sep 13, 2020 06:29
[2020-09-13] MEDS: VENlafaxine XR 75 MG (EFFEXOR XR) CAP PO SCH (06:30)
[2020-09-13 06:41] LABS: BASOPHILS # (AUTO) 0.2 10^3/uL (0.0-0.1); BASOPHILS % (AUTO) 1 % (0-10); EOSINOPHILS # (AUTO) 0.2 10^3/uL (0.0-0.3); EOSINOPHILS % (AUTO) 2 % (0-10); HEMATOCRIT 31 % (35-52); HEMOGLOBIN 9.9 g/dL (11.5-16.0); LYMPHOCYTES # (AUTO) 12.1 10^3/uL (1.0-4.0); LYMPHOCYTES % (AUTO) 78 % (12-44); MEAN CORPUSCULAR HEMOGLOBIN 29 pg (25-34); MEAN CORPUSCULAR HGB CONC 32 g/dL (32-36); MEAN CORPUSCULAR VOLUME 90 fL (80-99); MONOCYTES # (AUTO) 0.6 10^3/uL (0.0-1.0); MONOCYTES % (AUTO) 4 % (0-12); NEUTROPHILS # (AUTO) 2.4 10^3/uL (1.8-7.8); NEUTROPHILS % (AUTO) 15 % (42-75); PLATELET COUNT 316 10^3/uL (130-400); WHITE BLOOD COUNT 15.6 10^3/uL (4.3-11.0)
[2020-09-13 06:45] LABS: ALBUMIN 2.7 GM/DL (3.2-4.5); CHLORIDE 107 MMOL/L (98-107); POTASSIUM 3.7 MMOL/L (3.6-5.0); SODIUM 139 MMOL/L (135-145)
[2020-09-13 06:46] LABS: CALCIUM 7.9 MG/DL (8.5-10.1)
[2020-09-13 06:47] LABS: GLUCOSE 89 MG/DL (70-105)
[2020-09-13 06:48] LABS: TOTAL PROTEIN 5.7 GM/DL (6.4-8.2)
[2020-09-13 06:49] LABS: BILIRUBIN,TOTAL 0.6 MG/DL (0.1-1.0); CARBON DIOXIDE 25 MMOL/L (21-32)
[2020-09-13 06:51] LABS: ALKALINE PHOSPHATASE 142 U/L (40-136); CREATININE SERUM 0.56 MG/DL (0.60-1.30); GFR ESTIMATED > 60
[2020-09-13 06:52] LABS: BUN/CREATININE RATIO 9
[2020-09-13 06:54] LABS: ALANINE AMINOTRANSFERASE 139 U/L (0-55)
[2020-09-13 08:00] VITALS: BP 136/67
[2020-09-13] MEDS: SENNA W/DOCUSATE (SENOKOT S) TABLET PO SCH ×2 (08:47→20:38)
[2020-09-13] MEDS: FLUTICASONE NASAL SPRAY (FLONASE) 16 GM BTL NS SCH (08:47)
[2020-09-13] MEDS: PATIENT MAY USE OWN MED,SINGLE MED INH SCH (08:47)
[2020-09-13 11:26] LABS: ABSOLUTE RETIC # 114 10e9/uL (24-90); BASOPHILS # (AUTO) 0.1 10^3/uL (0.0-0.1); BASOPHILS % (AUTO) 1 % (0-10); EOSINOPHILS # (AUTO) 0.3 10^3/uL (0.0-0.3); EOSINOPHILS % (AUTO) 2 % (0-10); HEMATOCRIT 31 % (35-52); HEMOGLOBIN 9.9 g/dL (11.5-16.0); LYMPHOCYTES % (AUTO) 78 % (12-44); MEAN CORPUSCULAR HEMOGLOBIN 29 pg (25-34); MEAN CORPUSCULAR HGB CONC 32 g/dL (32-36); MEAN CORPUSCULAR VOLUME 91 fL (80-99); MEAN PLATELET VOLUME 11.3 fL (9.0-12.2); MONOCYTES # (AUTO) 0.7 10^3/uL (0.0-1.0); MONOCYTES % (AUTO) 4 % (0-12); NEUTROPHILS # (AUTO) 2.4 10^3/uL (1.8-7.8); NEUTROPHILS % (AUTO) 16 % (42-75); PLATELET COUNT 280 10^3/uL (130-400); RETICULOCYTE % 3.35 % (0.50-2.40); WHITE BLOOD COUNT 15.5 10^3/uL (4.3-11.0)
[2020-09-13 11:57] LABS: BAND NEUTROPHILS 4 %; NEUTROPHILS % (MANUAL) 29 %
[2020-09-13 11:58] LABS: ANISOCYTOSIS SLIGHT; EOSINOPHILS % (MANUAL) 2 %; LYMPHOCYTES % (MANUAL) 45 %; MONOCYTES % (MANUAL) 5 %; POIKILOCYTOSIS SLIGHT; REACTIVE LYMPHOCYTES 15 %
[2020-09-13 12:00] VITALS: BP 133/69
[2020-09-13] MEDS: ENOXAPARIN 40 MG/0.4 ML (LOVENOX) SYR SC SCH (13:11)
[2020-09-13 15:59] VITALS: BP 110/69
[2020-09-13 21:00] VITALS: BP 119/75
[2020-09-14 00:23] VITALS: BP 136/78
[2020-09-14] MEDS: VANCOMYCIN 1250 MG/NS 250 ML IVPB IV SCH ×2 (00:56)
[2020-09-14] MEDS: MEROPENEM 500 MG/SWFI 10 ML IV PUSH IV SCH ×4 (00:56→06:30)
[2020-09-14 05:09] LABS: BASOPHILS # (AUTO) 0.1 10^3/uL (0.0-0.1); BASOPHILS % (AUTO) 1 % (0-10); EOSINOPHILS # (AUTO) 0.4 10^3/uL (0.0-0.3); EOSINOPHILS % (AUTO) 3 % (0-10); HEMATOCRIT 31 % (35-52); HEMOGLOBIN 9.8 g/dL (11.5-16.0); LYMPHOCYTES # (AUTO) 9.3 10^3/uL (1.0-4.0); LYMPHOCYTES % (AUTO) 76 % (12-44); MEAN CORPUSCULAR HEMOGLOBIN 29 pg (25-34); MEAN CORPUSCULAR HGB CONC 32 g/dL (32-36); MEAN CORPUSCULAR VOLUME 91 fL (80-99); MEAN PLATELET VOLUME 9.7 fL (9.0-12.2); MONOCYTES # (AUTO) 0.7 10^3/uL (0.0-1.0); MONOCYTES % (AUTO) 6 % (0-12); NEUTROPHILS # (AUTO) 1.8 10^3/uL (1.8-7.8); NEUTROPHILS % (AUTO) 15 % (42-75); PLATELET COUNT 284 10^3/uL (130-400); WHITE BLOOD COUNT 12.2 10^3/uL (4.3-11.0)
[2020-09-14 05:28] LABS: ALANINE AMINOTRANSFERASE 119 U/L (0-55); ALBUMIN 2.7 GM/DL (3.2-4.5); ALKALINE PHOSPHATASE 152 U/L (40-136); BILIRUBIN,TOTAL 0.6 MG/DL (0.1-1.0); BUN/CREATININE RATIO 10; CALCIUM 7.9 MG/DL (8.5-10.1); CARBON DIOXIDE 27 MMOL/L (21-32); CHLORIDE 107 MMOL/L (98-107); GFR ESTIMATED > 60; GLUCOSE 90 MG/DL (70-105); POTASSIUM 3.9 MMOL/L (3.6-5.0); SODIUM 140 MMOL/L (135-145); TOTAL PROTEIN 5.9 GM/DL (6.4-8.2)
[2020-09-14] MEDS: VENlafaxine XR 75 MG (EFFEXOR XR) CAP PO SCH (06:30)
[2020-09-14 07:54] VITALS: BP 117/55
[2020-09-14] MEDS: FLUTICASONE NASAL SPRAY (FLONASE) 16 GM BTL NS SCH (07:58)
[2020-09-14] MEDS: SENNA W/DOCUSATE (SENOKOT S) TABLET PO SCH (07:59)
[2020-09-14] MEDS ORDERED: CEFT1FRO2 IV (09:06)
--- NOTE | 2020-09-14 09:07 | Discharge Summary ---
Discharge Summary Hospital Course Was the Problem List Reviewed?: Yes Problems/Dx: (1) Bacteremia (2) Lung abscess (3) Propionibacterium infection (4) Lactic acid acidosis (5) Dehydration (6) Asthma (7) Liver enzyme elevation (8) Hyperlipemia (9) Sinus tachycardia Status: Acute Hospital Course Date of Admission: Sep 09, 2020 at 11:12 Admission Diagnosis : Family Physician/Provider: Beverly Draper DO Date of Discharge: 09/14/20 Discharge Diagnosis: bacteremia of propionibacterium acnes 09/03/20 BCx, lung abscess on CT scan, COVID-19 05/2020, elevated LFT's Hospital Course: DC Summary: Pt had an uneventful but lengthy hospital course. She was admitted for bacteremia of anaerobic bacteria on outpatient blood cultures consistent with tooth cleaning on 08/11/20, no endocarditis noted. CT scans of abdomen, pelvis, and chest revealed pulmonary nodule likely lung abscess of 6 mm. Elevated WC continued, picc line was placed, placed on Meropenem and Vancomycin. Pt ultimately narrowed down to Rocephin 1g IV daily for an additional 35 doses as an outpatient and we will repeat the CT scan. Hematology saw her in consultation to assure there was no hematological malignancy tendency and will be monitored closely from my clinic. Labs and Pending Lab Test: Laboratory Tests 09/14/20 04:55: White Blood Count 12.2H, Red Blood Count 3.41L, Hemoglobin 9.8L, Hematocrit 31L, Mean Corpuscular Volume 91, Mean Corpuscular Hemoglobin 29, Mean Corpuscular Hemoglobin Concent 32, Red Cell Distribution Width 15.2H, Platelet Count 284, Mean Platelet Volume 9.7, Immature Granulocyte % (Auto) 0, Neutrophils (%) (Auto) 15L, Lymphocytes (%) (Auto) 76H, Monocytes (%) (Auto) 6, Eosinophils (%) (Auto) 3, Basophils (%) (Auto) 1, Neutrophils # (Auto) 1.8, Lymphocytes # (Auto) 9.3H, Monocytes # (Auto) 0.7, Eosinophils # (Auto) 0.4H, Basophils # (Auto) 0.1, Immature Granulocyte # (Auto) 0.0, Sodium Level 140, Potassium Level 3.9, Chloride Level 107, Carbon Dioxide Level 27, Anion Gap 6, Blood Urea Nitrogen 6L , Creatinine 0.60, Estimat Glomerular Filtration Rate > 60, BUN/Creatinine Ratio 10, Glucose Level 90, Calcium Level 7.9L, Corrected Calcium 8.9, Total Bilirubin 0.6, Aspartate Amino Transf (AST/SGOT) 68H, Alanine Aminotransferase (ALT/SGPT) 119H, Alkaline Phosphatase 152H, Total Protein 5.9L, Albumin 2.7L Microbiology 09/09/20 Blood Culture - Preliminary, Resulted No growth Home Meds Active Ceftriaxone 1 gm Piggyback (Ceftriaxone Na/Dextrose,Iso) 1 Gm/50 Ml Froz.piggy 1 Gm IV DAILY Reported Tylenol Extra Strength (Acetaminophen) 500 Mg Tablet 500-1,000 Mg PO Q8H PRN Flonase Allergy Relief (Fluticasone Propionate) 9.9 Ml [place].susp 2 [place] NS DAILY Advair 250-50 Diskus (Fluticasone/Salmeterol) 1 Each Blst.w.dev 1 Puff INH DAILY Venlafaxine HCl ER (Venlafaxine HCl) 150 Mg Cap.er.24h 150 Mg PO DAILY Atorvastatin Calcium 10 Mg Tablet 10 Mg PO DAILY Assessment/Pt Instructions PCP Dr Draper in 1 week Discharge Planning: >30 minutes discharge planning Discharge Instructions Discharge Diet: No Restrictions Discharge Physical Examination Vital Signs Vital Signs Date Time Temp Pulse Resp B/P (MAP) Pulse Ox O2 Delivery O2 Flow Rate FiO2 09/14/20 08:19 Room Air 09/14/20 07:54 36.8 96 16 117/55 (75) 95 General Appearance: No Apparent Distress, WD/WN, Chronically ill Allergies: Coded Allergies: Penicillins (Verified Allergy, Unknown, 09/09/20) Discharge Summary Date of Admission Sep 09, 2020 at 11:12 Date of Discharge Discharge Date: Sep 14, 2020 Admission Diagnosis Assessment: Bacteremia Propionibacterium acnes in outpatient blood Cx, ordered 4 sets of BCx on admit to confirm, likely from teeth cleaning 08/11/20 now with 6mm RLL presumed abscess placed on Meropenem and Vanc empirically and PICC line placed COVID-19 05/2020 repeat COVID negative this week Asthma HLP Elevated LFT's Hepatic steatosis on USG Plan: PICC line Abx Monitor closely Cardiology evaluation Monitor labs Discharge Diagnosis Assessment: Bacteremia Propionibacterium acnes in outpatient blood Cx, ordered 4 sets of BCx on admit to confirm, likely from teeth cleaning 08/11/20 now with 6mm RLL presumed abscess placed on Meropenem and Vanc empirically and PICC line placed COVID-19 05/2020 repeat COVID negative this week Asthma HLP Elevated LFT's Hepatic steatosis on USG Plan: PICC line Abx Monitor closely Cardiology evaluation Monitor labs 09/10/20: PICC line Abx Monitor labs 09/11/20: Monitor for fever Monitor labs Broad spectrum abx lung abscess tx 09/12/20: IV abx PICC line Check GGT with INR in am Monitor LFT's held statin and any significant hepatic toxic meds 09/13/20: Lung abscess treatment Dr Gill consultation (1) Bacteremia (2) Lung abscess (3) Propionibacterium infection (4) Lactic acid acidosis (5) Dehydration (6) Asthma (7) Liver enzyme elevation (8) Hyperlipemia (9) Sinus tachycardia Status: Acute Clinical Quality Measures DVT/VTE Risk/Contraindication: Risk Factor Score Per Nursin RFS Level Per Nursing on Admit: 4+=Very High BEVERLY DRAPER DO Sep 14, 2020 09:07
--- NOTE | 2020-09-14 10:16 | NUR ---
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
--- NOTE | 2020-09-14 10:20 | NUR ---
pt was found with no o2 on. pt saturation was 82%. pt was then placed on o2 by rt and turned up to 4L pt saturation came up to 94%. pt would follow commands rt requested. pt refused medication at this time. Addendum: 09/14/20 at 1258 by MADHU EPPERSON RT Amended: Links added.
--- NOTE | 2020-09-14 10:42 | Oncology Consultation ---
Visit Information Visit Information Date of Admission Sep 09, 2020 at 11:12 Attending Physician Beverly Draper DO Admitting Physician Beverly Draper DO Chief Complaint Called by Dr Draper to see the patient for complicated case of persistent fever and tachycardia, outpatient blood culture one set positive with Propionibacterium acnes, raising questions of possible lymphoma or leukemia? Interval History Ms. Trevino is a 64 year old white female who was admitted for fever and tachycardia and outpatient blood culture one positive with Propionibacterium acnes after a dental cleaning. She had COVID-19 in May which resolved without much intervention. She had her teeth cleaned at [facility] on 08/11/20 and had no concerns about her dental health. She gave blood on 08/27/20 and has since felt ill. She went to ER on 08/28/20 due to tachycardia and recurrent fever and all tests were normal so she was told to monitor fever and take Tylenol for fever and she saw me in follow up and patient seemed to be better. CT chest abd/pelvis scans revealed 6mm lung nodule and steatosis of the liver. PICC line was placed on Meropenem initiated and 4 sets of blood cultures were obtained prior to abx to secure bacterermia again. Slightly elevated HDH at 469, also elevated Retic counts, and LFTs. Worked up showed anemia and elevated WBC with 74% Lymph, 25% Neutrophil, normal Plt. Laboratory Tests 09/14/20 04:55 I consulted the patient on: 09/14/20 10:36 Time Seen by Provider: 12:00 Review of Systems Constitutional: see HPI Health Status Allergies Coded Allergies: Penicillins (Verified Allergy, Unknown, 09/09/20) Home Medications Acetaminophen (Tylenol Extra Strength) 500 Mg Tablet, 500-1,000 MG PO Q8H PRN for PAIN-MILD (1-4), (Reported) Ceftriaxone Na/Dextrose,Iso (Ceftriaxone 1 gm Piggyback) 1 Gm/50 Ml Froz.piggy, 1 GM IV DAILY, #35 Prescribed by: BEVERLY DRAPER on 09/14/20 0906 Fluticasone Propionate (Flonase Allergy Relief) 9.9 Ml Eunice.susp, 2 SPRAY NS DAILY, (Reported) Fluticasone/Salmeterol (Advair 250-50 Diskus) 1 Each Blst.w.dev, 1 PUFF INH DAILY, (Reported) Venlafaxine HCl (Venlafaxine HCl ER) 150 Mg Cap.er.24h, 150 MG PO DAILY, (Reported) HWR-Qzetak-Wbzwvh Hx Patient Social History Marrital Status: Employed/Student: employed Alcohol Use: Denies Use Recreational Drug Use: No Smoking Status: Never a Smoker 2nd Hand Smoke Exposure: No Recent Foreign Travel: No Contact w/other who traveled: No Recent Infectious Disease Expo: No Recent Hopitalizations: No Physical Abuse Screen: No Sexual Abuse: No Immunizations Up To Date Tetanus Booster (TDap): Unknown Date of Influenza Vaccine: Jun 18, 2020 Family Medical History Family History: Hypertension 19 FATHER 19 MOTHER G8 BROTHER G8 BROTHER G8 SISTER Physical Exam Vital Signs Vital Signs - First Documented 09/09/20 11:38 Temp 36.6 Pulse 108 Resp 18 B/P (MAP) 125/80 Pulse Ox 96 O2 Delivery Room Air Capillary Refill : Less Than 3 SecondsLess Than 3 Seconds Height, Weight, BMI Height: 5'7.00" Weight: 177lbs. 0.0oz. 80.732023zg; 29.68 BMI Method: General Appearance: No Apparent Distress HEENT: PERRL/EOMI Neck: Non Tender, Supple Respiratory: Chest Non Tender, No Accessory Muscle Use, No Respiratory Distress Cardiovascular: Regular Rate, Rhythm Neurologic/Psychiatric: Oriented x3 Data Review Labs Laboratory Tests 09/14/20 04:55 Laboratory Tests 09/12/20 08:04: White Blood Count 13.7H, Red Blood Count 3.53L, Hemoglobin 10.4L, Hematocrit 32L , Red Cell Distribution Width 15.0H, Neutrophils (%) (Auto) 20L, Lymphocytes (%) (Auto) 73H, Lymphocytes # (Auto) 10.0H, Blood Urea Nitrogen 6L, Creatinine 0.58L , Glucose Level 115H, Calcium Level 7.8L, Aspartate Amino Transf (AST/SGOT) 92H, Alanine Aminotransferase (ALT/SGPT) 162H, Alkaline Phosphatase 146H, Total Protein 5.9L, Albumin 2.8L 09/13/20 06:15: White Blood Count 15.5H, Red Blood Count 3.41L, Hemoglobin 9.9L, Hematocrit 31L, Red Cell Distribution Width 15.1H, Neutrophils (%) (Auto) 16L, Lymphocytes (%) (Auto) 78H, Lymphocytes # (Auto) 12.0H, Blood Urea Nitrogen 5L, Creatinine 0.56L , Calcium Level 7.9L, Aspartate Amino Transf (AST/SGOT) 84H, Alanine Aminotransferase (ALT/SGPT) 139H, Alkaline Phosphatase 142H, Total Protein 5.7L, Albumin 2.7L, Basophils # (Auto) 0.2H, Absolute Reticulocyte Count 114H, Percent Reticulocyte Count 3.35H, Gamma Glutamyl Transpeptidase 171H, Lactate Dehydrogenase 467H 09/14/20 04:55: White Blood Count 12.2H, Red Blood Count 3.41L, Hemoglobin 9.8L, Hematocrit 31L, Red Cell Distribution Width 15.2H, Neutrophils (%) (Auto) 15L, Lymphocytes (%) (Auto) 76H, Lymphocytes # (Auto) 9.3H, Blood Urea Nitrogen 6L, Calcium Level 7.9L, Aspartate Amino Transf (AST/SGOT) 68H, Alanine Aminotransferase (ALT/SGPT) 119H, Alkaline Phosphatase 152H, Total Protein 5.9L, Albumin 2.7L, Eosinophils # (Auto) 0.4H 09/14/20 07:57: Impression & Plan Impression & Plan IMP: 1. Fever, tachycardia, 2. One bottle positive blood culture of Propionibacterium acnes in outpatient, repeated blood culture before antibiotics negative x 4 bottles. 3. Recent dental cleaning 08/11/2020 4. Covid infection 05/2020 uneventful 5. Normacytic anemia with elevated retic counts, and serum LDH 6. Elevated WBC with lymphocyte 74% and N25%. 7. CT scan 6mm lung nodule and fatty liver. Rec: 1. I feel this is some kind of virus infection but I do not know what type. This is the 3rd cases I saw over the last couple of weeks with similar hematological changes. Fortunately the patients slowly recovered. 2. 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 Very unlikely related to the lymphoma or marrow disease because of her normal plt numbers and her marrow is able to respond with retic counts. 3. I suggest to clinical monitoring as out patient for the next 2-4 weeks. 4. I will be happy to evaluate her again as out patient if it is necessary. Thank you for the consultation. CONRADO GILBERT MD Sep 14, 2020 10:42
[2020-09-14] MEDS: ENOXAPARIN 40 MG/0.4 ML (LOVENOX) SYR SC SCH (11:32)
[2020-09-14] MEDS: PATIENT MAY USE OWN MED,SINGLE MED INH SCH (12:55)
--- NOTE | 2020-09-14 14:01 | NUR ---
RD ASSESSMENT PMHx: pneumonia; hypercholesterolemia; PT INTERACTION: Pt was awake and pleasant during nutrition assessment. Pt states current appetite is "so-so" and has been this way since admit. Note avg PO intake 69% x4d, per chart review. Pt states following a regular diet at home, and has no issues with chewing/swallowing food. Pt states no recent issues with nausea, vomiting, constipation, or diarrhea. Note last BM was 09/12, and pt currently on bowel regimen of senna BID, per chart review. Pt states unsure of recent wt changes. Note unable to determine recent wt hx, per chart review. ABNORMAL NUTRITION-RELATED LAB VALUES LOW: BUN 6; Ca 7.9; Pro 5.9; alb 2.7; HIGH: AST 68; ALT 119; alkphos 152; Est. kcal needs: 4455-7891 kcal | 20-25 kcal/kg Est. Pro needs: 86-103 g Pro | 1.0-1.2 g Pro/kg PES STATEMENT: Inadequate oral intake (NI-2.1) related to loss of appetite, as evidenced by pt interview, and avg PO intake 69% x4d. INTERVENTION: Continue with current diet order of Regular diet. Pt may benefit from nutrition supplementation if PO intake declines. Will continue to follow and reassess as pt needs, intake, and status change. Francisco J OKEEFE MS RD LD [phone] cell
--- NOTE | 2020-09-14 15:25 | Progress Note - Cardiology ---
Cardiology SOAP Progress Note Subjective: Malaise has resolved No shortness of breath No cp or palp or syncope No n/v Objective: I&O/Vital Signs 09/14/20 09/14/20 09/14/20 07:54 08:19 10:45 Temp 36.8 Pulse 96 Resp 16 B/P (MAP) 117/55 (75) Pulse Ox 95 92 O2 Delivery Room Air Room Air Room Air 09/14/20 00:00 Intake Total 840 ml Balance 840 ml Weight (Pounds): 177 Weight (Ounces): 0.0 Weight (Calculated Kilograms): 80.980200 Constitutional: AAO x 3, well-developed, well-nourished Respiratory: No accessory muscle use, No respiratory distress; chest expansion is symmetric, chest is bilaterally symmetric, lungs clear to auscultation Cardiovascular: regular rate-rhythm; No JVD; S1 and S2 Gastrointestional: No tender; soft, round, audible bowel sounds Extremities: no lower extremity edema bilateral Neurologic/Psychiatric: grossly intact (moves all extremities) Skin: No rash on exposed areas, No ulcerations on exposed areas Results/Procedures: Labs Laboratory Tests 09/14/20 04:55: White Blood Count 12.2H, Red Blood Count 3.41L, Hemoglobin 9.8L, Hematocrit 31L, Mean Corpuscular Volume 91, Mean Corpuscular Hemoglobin 29, Mean Corpuscular Hemoglobin Concent 32, Red Cell Distribution Width 15.2H, Platelet Count 284, Mean Platelet Volume 9.7, Immature Granulocyte % (Auto) 0, Neutrophils (%) (Auto) 15L, Lymphocytes (%) (Auto) 76H, Monocytes (%) (Auto) 6, Eosinophils (%) (Auto) 3, Basophils (%) (Auto) 1, Neutrophils # (Auto) 1.8, Lymphocytes # (Auto) 9.3H, Monocytes # (Auto) 0.7, Eosinophils # (Auto) 0.4H, Basophils # (Auto) 0.1, Immature Granulocyte # (Auto) 0.0, Sodium Level 140, Potassium Level 3.9, Chloride Level 107, Carbon Dioxide Level 27, Anion Gap 6, Blood Urea Nitrogen 6L , Creatinine 0.60, Estimat Glomerular Filtration Rate > 60, BUN/Creatinine Ratio 10, Glucose Level 90, Calcium Level 7.9L, Corrected Calcium 8.9, Total Bilirubin 0.6, Aspartate Amino Transf (AST/SGOT) 68H, Alanine Aminotransferase (ALT/SGPT) 119H, Alkaline Phosphatase 152H, Total Protein 5.9L, Albumin 2.7L 09/14/20 07:57: Microbiology 09/09/20 Blood Culture - Preliminary, Resulted No growth Laboratory Tests 09/13/20 06:15 09/14/20 04:55 A/P: Assessment: Propionibacterium acnes sepsis, probably from a lung abscess - Dr Draper managing Echo 09/09/20: LVEF 60-65%, normal PASP, no evidence of endocarditis on trans-thoracic echocardiography H/O COVID in May 2020 MPI of May [address] Davis showed no signif ischemia or infarction. LVEF 58% Hepatitis (transaminase elevation) of undetermined etiology, Dr Draper managing. Abd u/s on 09/09/20: hepatomegaly and hepatic steatosis w/o evidence of cholelithiasis or acute cholecystitis. Pulm lesion. CT chest on 09/09/20: indeterminate 6 mm right lower lobe pulmonary nodule, Dr Draper managing Plan: Management of sepsis and liver and pulm lesions is with Dr Draper Given that Dr Draper is suspecting a lung abscess to be the source of pt's se psis, we will hold off on [place] Monitor labs. Transaminases show improvement Outpt cardiac f/u advised CHRIS VILLAR MD FACP [facility]3]S Sep 14, 2020 15:25
[2020-09-14 15:59] VITALS: BP 146/88
--- NOTE | 2020-09-15 12:07 | Physician Query Clarification ---
PQ-Further Specificity Admission/Discharge Admission Date: Sep 09, 2020 at 11:12 Discharge Date: Sep 14, 2020 at 14:05 Dr. Draper, The medical record reflects the following clinical scenario: History/Risk Factors: bacteremia, lung abscess Clinical Findings: outside blood culture - propionibacterium acne, T 38.2, P 108, R 20, WBC 12.0, Lactic acid 2.41 Treatment: IV Vancomycin Question: Can you further specify bacteremia per the clinical indicators above? Please document a response in the Progress Notes or Discharge Summary. 1. bacteremia meaning sepsis d/t proprionibacterium acne 2. bacteremia d/t proprionibacterium acne only 3. Other, with explanation of the clinical findings. 4. Clinically undetermined, no explanation for the clinical findings. PHYSICIAN RESPONSE Can you specify per above: 2 Please remember a lack of response to the above will prompt a phone page by CDI/Coding staff. In responding to this query, please exercise your independent professional judgment. The purpose of this communication is to more accurately reflect the complexity of your patients condition. The fact that a question is asked does not imply that any particular answer is desired or expected. Thank you for your timely response to this clarification. Requestors name: Teresa THIS PHYSICIAN QUERY FORM IS A PERMANENT PART OF THE MEDICAL RECORD TERESA FUCHS Sep 15, 2020 12:07 TREMAINE DRAPER DO Sep 15, 2020 19:24
== END 2020-09-14 14:05 | disposition home or self-care (01) | DRG 871 ==
LOC: 4TH 11:12
PROVIDERS: ADMIT Internal Medicine; ATTEND Internal Medicine
DX: R78.81 Bacteremia (principal); J85.2 Abscess of lung without pneumonia; E87.2 Acidosis; R06.00 Dyspnea, unspecified; J45.909 Unspecified asthma, uncomplicated; F41.9 Anxiety disorder, unspecified; E78.5 Hyperlipidemia, unspecified; E78.00 Pure hypercholesterolemia, unspecified; K76.0 Fatty (change of) liver, not elsewhere classified; E86.0 Dehydration; R00.0 Tachycardia, unspecified; Z86.19 Personal history of other infectious and parasitic diseases; Z87.01 Personal history of pneumonia (recurrent); Z82.49 Family history of ischemic heart disease and other diseases of the circulatory system; Z82.3 Family history of stroke; Z88.0 Allergy status to penicillin
CPT/HCPCS: 36415; 36569; 71046; 71260; 74177; 76705; 76937; 80048; 80053; 80202; 81000; 82977; 83010; 83605; 83615; 83735; 84145; 84443; 85007; 85025; 85027; 85045; 85055; 85610; 85652; 86141; 86880; 87040; 93005; 93306; 94640; 94760

== ENCOUNTER → 2020-09-25 | Outpatient (CLI) | payer BC ==
[~2020-09-25] MED LIST changes: +ACET-2267 PO; +ATOR10TA66 PO; +CEFT1FRO2 IV; +FLUT1DIS26 INH; +FLUT9.9S NS; +VENL150C98 PO
--- NOTE | 2020-09-25 12:46 | Diagnostic Imaging Report ---
INDICATION: Lung abscess. TIME OF EXAM: 11:12 a.m. Correlation is made with prior chest 09/09/2020. Right upper extremity PICC line has tip overlying the SVC. Lungs are clear. No infiltrates are seen. Pulmonary vascularity is normal. There is no effusion or pneumothorax. IMPRESSION: No acute cardiopulmonary process is detected. Dictated by: Dictated on workstation # [id number]
== END ==
LOC: RAD 10:44
PROVIDERS: ATTEND Internal Medicine
DX: J85.2 Abscess of lung without pneumonia (principal)
CPT/HCPCS: 71045

== ENCOUNTER → 2020-10-14 | Outpatient (CLI) | payer BC ==
[~2020-10-14] MED LIST changes: +CATHETER FLUSH 10 ML SYR IV PRN; +HOLD METFORMIN - RECEIVED CONTRAST 20 ML VIAL IV SCH; +IOHEXOL 350 MG/ML 100 ML (OMNIPAQUE 350) VIAL IV ONE; +NS 100 ML (IVPB) BAG IV ONE
--- NOTE | 2020-10-14 09:20 | Diagnostic Imaging Report ---
PROCEDURE: CT chest with contrast only. TECHNIQUE: Multiple contiguous axial images were obtained through the chest after administration of intravenous contrast. Auto Exposure Controls were utilized during the CT exam to meet ALARA standards for radiation dose reduction. INDICATION: Pulmonary nodule. COMPARISON: 09/09/2020. FINDINGS: A subpleural nodule in the right lower lobe posteriorly today measures 4 mm. No new, dominant, or spiculated lung mass. No evidence for pneumonia. No thoracic adenopathy. No chest effusion. The aorta is nonaneurysmal. No acute soft tissue or osseous chest wall pathology. The visualized upper abdomen is unremarkable. IMPRESSION: 1. A 4 mm subpleural micronodule in the right lower lobe is stable if not decreased in size from the comparison study. An additional 6 month followup is recommended. If continued stability or reduction is confirmed at that exam, no further workup would be needed. 2. No adverse development. No evidence for acute pathology. Dictated by: Dictated on workstation # [id number]
== END ==
LOC: RAD 08:15
PROVIDERS: ATTEND Internal Medicine
DX: R91.1 Solitary pulmonary nodule (principal)
CPT/HCPCS: 71260

== ENCOUNTER 2020-10-19 10:56 | Outpatient (RCR) | payer BC ==
[2020-09-15 09:45] VITALS: BP 122/82
[2020-09-15] MEDS: cefTRIAXone 1,000 MG/SWFI 10 ML IV PUSH IV SCH ×2 (10:09)
[2020-09-16 10:00] VITALS: BP 119/76
[2020-09-16] MEDS: cefTRIAXone 1,000 MG/SWFI 10 ML IV PUSH IV SCH ×2 (10:01)
[2020-09-17 09:15] VITALS: BP 102/70
[2020-09-17] MEDS: cefTRIAXone 1,000 MG/SWFI 10 ML IV PUSH IV SCH ×2 (09:17)
[2020-09-18 09:15] VITALS: BP 117/81
[2020-09-18] MEDS: cefTRIAXone 1,000 MG/SWFI 10 ML IV PUSH IV SCH ×2 (09:21)
[2020-09-19 09:00] VITALS: BP 121/89
[2020-09-19] MEDS: cefTRIAXone 1,000 MG/SWFI 10 ML IV PUSH IV SCH ×2 (09:28)
[2020-09-20 09:00] VITALS: BP 131/81
[2020-09-20] MEDS: cefTRIAXone 1,000 MG/SWFI 10 ML IV PUSH IV SCH ×2 (09:03)
[2020-09-21] MEDS: cefTRIAXone 1,000 MG/SWFI 10 ML IV PUSH IV SCH ×2 (10:59)
[2020-09-21 11:05] VITALS: BP 110/77
[2020-09-22] MEDS: cefTRIAXone 1,000 MG/SWFI 10 ML IV PUSH IV SCH ×2 (11:05)
[2020-09-22 11:10] VITALS: BP 118/66
[2020-09-22 11:10] LABS: BASOPHILS # (AUTO) 0.1 10^3/uL (0.0-0.1); BASOPHILS % (AUTO) 2 % (0-10); EOSINOPHILS # (AUTO) 0.2 10^3/uL (0.0-0.3); EOSINOPHILS % (AUTO) 3 % (0-10); HEMATOCRIT 37 % (35-52); HEMOGLOBIN 11.6 g/dL (11.5-16.0); LYMPHOCYTES % (AUTO) 61 % (12-44); MEAN CORPUSCULAR HEMOGLOBIN 29 pg (25-34); MEAN CORPUSCULAR HGB CONC 31 g/dL (32-36); MEAN CORPUSCULAR VOLUME 93 fL (80-99); MEAN PLATELET VOLUME 9.5 fL (9.0-12.2); MONOCYTES # (AUTO) 0.5 10^3/uL (0.0-1.0); MONOCYTES % (AUTO) 6 % (0-12); NEUTROPHILS # (AUTO) 2.4 10^3/uL (1.8-7.8); NEUTROPHILS % (AUTO) 29 % (42-75); PLATELET COUNT 391 10^3/uL (130-400); WHITE BLOOD COUNT 8.2 10^3/uL (4.3-11.0)
[2020-09-22 11:31] LABS: ALANINE AMINOTRANSFERASE 61 U/L (0-55); ALBUMIN 3.8 GM/DL (3.2-4.5); ALKALINE PHOSPHATASE 108 U/L (40-136); BILIRUBIN,TOTAL 0.6 MG/DL (0.1-1.0); BUN/CREATININE RATIO 18; CARBON DIOXIDE 23 MMOL/L (21-32); CHLORIDE 108 MMOL/L (98-107); CREATININE SERUM 0.74 MG/DL (0.60-1.30); GFR ESTIMATED > 60; GLUCOSE 125 MG/DL (70-105); POTASSIUM 4.5 MMOL/L (3.6-5.0); SODIUM 139 MMOL/L (135-145); TOTAL PROTEIN 7.8 GM/DL (6.4-8.2)
[2020-09-22 11:38] LABS: ERYTHROCYTE SEDIMENTATION RATE 31 MM/HR (0-30)
[2020-09-23] MEDS: cefTRIAXone 1,000 MG/SWFI 10 ML IV PUSH IV SCH ×2 (10:59)
[2020-09-23 11:25] VITALS: BP 112/82
[2020-09-24 10:45] VITALS: BP 102/76
[2020-09-24] MEDS: cefTRIAXone 1,000 MG/SWFI 10 ML IV PUSH IV SCH ×2 (10:57)
[2020-09-25 10:25] VITALS: BP 122/79
[2020-09-25] MEDS: cefTRIAXone 1,000 MG/SWFI 10 ML IV PUSH IV SCH ×2 (10:32)
[2020-09-26 09:00] VITALS: BP 120/81
[2020-09-26] MEDS: cefTRIAXone 1,000 MG/SWFI 10 ML IV PUSH IV SCH ×2 (09:07)
[2020-09-27 09:00] VITALS: BP 141/91
[2020-09-27] MEDS: cefTRIAXone 1,000 MG/SWFI 10 ML IV PUSH IV SCH ×2 (09:04)
[2020-09-28] MEDS: cefTRIAXone 1,000 MG/SWFI 10 ML IV PUSH IV SCH ×2 (10:59)
[2020-09-28 11:10] VITALS: BP 121/72
[2020-09-28 11:24] LABS: ABSOLUTE RETIC # 48 10e9/uL (24-90); BASOPHILS # (AUTO) 0.1 10^3/uL (0.0-0.1); BASOPHILS % (AUTO) 2 % (0-10); EOSINOPHILS # (AUTO) 0.4 10^3/uL (0.0-0.3); EOSINOPHILS % (AUTO) 5 % (0-10); HEMATOCRIT 38 % (35-52); HEMOGLOBIN 12.1 g/dL (11.5-16.0); LYMPHOCYTES # (AUTO) 4.7 10^3/uL (1.0-4.0); LYMPHOCYTES % (AUTO) 54 % (12-44); MEAN CORPUSCULAR HEMOGLOBIN 30 pg (25-34); MEAN CORPUSCULAR HGB CONC 32 g/dL (32-36); MEAN CORPUSCULAR VOLUME 93 fL (80-99); MEAN PLATELET VOLUME 10.1 fL (9.0-12.2); MONOCYTES # (AUTO) 0.6 10^3/uL (0.0-1.0); MONOCYTES % (AUTO) 7 % (0-12); NEUTROPHILS # (AUTO) 2.9 10^3/uL (1.8-7.8); NEUTROPHILS % (AUTO) 33 % (42-75); PLATELET COUNT 357 10^3/uL (130-400); RETICULOCYTE % 1.17 % (0.50-2.40); WHITE BLOOD COUNT 8.7 10^3/uL (4.3-11.0)
[2020-09-28 12:01] LABS: ALBUMIN 3.9 GM/DL (3.2-4.5); CHLORIDE 107 MMOL/L (98-107); POTASSIUM 4.3 MMOL/L (3.6-5.0); SODIUM 138 MMOL/L (135-145)
[2020-09-28 12:02] LABS: CALCIUM 8.9 MG/DL (8.5-10.1)
[2020-09-28 12:03] LABS: GLUCOSE 78 MG/DL (70-105)
[2020-09-28 12:04] LABS: TOTAL PROTEIN 7.7 GM/DL (6.4-8.2)
[2020-09-28 12:05] LABS: BILIRUBIN,TOTAL 0.6 MG/DL (0.1-1.0); CARBON DIOXIDE 24 MMOL/L (21-32)
[2020-09-28 12:07] LABS: ALKALINE PHOSPHATASE 97 U/L (40-136); CREATININE SERUM 0.73 MG/DL (0.60-1.30); GFR ESTIMATED > 60
[2020-09-28 12:08] LABS: BUN/CREATININE RATIO 16; ERYTHROCYTE SEDIMENTATION RATE 22 MM/HR (0-30)
[2020-09-28 12:10] LABS: ALANINE AMINOTRANSFERASE 51 U/L (0-55)
[2020-09-28 12:34] LABS: BAND NEUTROPHILS 2 %; BASOPHILS % (MANUAL) 0 %; EOSINOPHILS % (MANUAL) 8 %; LYMPHOCYTES % (MANUAL) 45 %; MONOCYTES % (MANUAL) 6 %; NEUTROPHILS % (MANUAL) 39 %; RBC MORPH NORMAL
[2020-09-29 10:50] VITALS: BP 127/87
[2020-09-29] MEDS: cefTRIAXone 1,000 MG/SWFI 10 ML IV PUSH IV SCH ×2 (11:01)
[2020-09-30] MEDS: cefTRIAXone 1,000 MG/SWFI 10 ML IV PUSH IV SCH ×2 (10:59)
[2020-09-30 11:12] VITALS: BP 131/88
[2020-10-01] MEDS: cefTRIAXone 1,000 MG/SWFI 10 ML IV PUSH IV SCH ×2 (10:55)
[2020-10-01 11:00] VITALS: BP 120/82
[2020-10-02 10:50] VITALS: BP 116/88
[2020-10-02] MEDS: cefTRIAXone 1,000 MG/SWFI 10 ML IV PUSH IV SCH ×2 (11:02)
[2020-10-03 09:20] VITALS: BP 138/91
[2020-10-03] MEDS: cefTRIAXone 1,000 MG/SWFI 10 ML IV PUSH IV SCH ×2 (09:28)
[2020-10-04] MEDS: cefTRIAXone 1,000 MG/SWFI 10 ML IV PUSH IV SCH ×2 (09:10)
[2020-10-04 09:23] VITALS: BP 123/76
[2020-10-05] MEDS: cefTRIAXone 1,000 MG/SWFI 10 ML IV PUSH IV SCH ×2 (09:22)
[2020-10-05 09:35] VITALS: BP 129/88
[2020-10-05 09:55] LABS: ABSOLUTE RETIC # 37 10e9/uL (24-90); BASOPHILS # (AUTO) 0.2 10^3/uL (0.0-0.1); BASOPHILS % (AUTO) 3 % (0-10); EOSINOPHILS # (AUTO) 0.3 10^3/uL (0.0-0.3); EOSINOPHILS % (AUTO) 4 % (0-10); HEMATOCRIT 40 % (35-52); HEMOGLOBIN 12.9 g/dL (11.5-16.0); LYMPHOCYTES # (AUTO) 3.4 10^3/uL (1.0-4.0); LYMPHOCYTES % (AUTO) 49 % (12-44); MEAN CORPUSCULAR HEMOGLOBIN 29 pg (25-34); MEAN CORPUSCULAR HGB CONC 32 g/dL (32-36); MEAN CORPUSCULAR VOLUME 92 fL (80-99); MEAN PLATELET VOLUME 10.6 fL (9.0-12.2); MONOCYTES # (AUTO) 0.5 10^3/uL (0.0-1.0); MONOCYTES % (AUTO) 8 % (0-12); NEUTROPHILS # (AUTO) 2.6 10^3/uL (1.8-7.8); NEUTROPHILS % (AUTO) 37 % (42-75); PLATELET COUNT 276 10^3/uL (130-400); RETICULOCYTE % 0.84 % (0.50-2.40)
[2020-10-05 10:04] LABS: ALANINE AMINOTRANSFERASE 58 U/L (0-55); ALKALINE PHOSPHATASE 81 U/L (40-136); BILIRUBIN,TOTAL 0.5 MG/DL (0.1-1.0); BUN/CREATININE RATIO 14; CARBON DIOXIDE 21 MMOL/L (21-32); CHLORIDE 108 MMOL/L (98-107); CREATININE SERUM 0.73 MG/DL (0.60-1.30); GFR ESTIMATED > 60; GLUCOSE 98 MG/DL (70-105); POTASSIUM 4.7 MMOL/L (3.6-5.0); SODIUM 138 MMOL/L (135-145); TOTAL PROTEIN 7.5 GM/DL (6.4-8.2)
[2020-10-05 10:43] LABS: BAND NEUTROPHILS 1 %; BASOPHILS % (MANUAL) 0 %; EOSINOPHILS % (MANUAL) 3 %; LYMPHOCYTES % (MANUAL) 54 %; MONOCYTES % (MANUAL) 5 %; NEUTROPHILS % (MANUAL) 37 %
[2020-10-05 10:44] LABS: ELLIPT/OVALOCYTES SLIGHT
[2020-10-05 11:02] LABS: ERYTHROCYTE SEDIMENTATION RATE 12 MM/HR (0-30)
[2020-10-06] MEDS: cefTRIAXone 1,000 MG/SWFI 10 ML IV PUSH IV SCH ×2 (11:10)
[2020-10-06 11:20] VITALS: BP 122/88
[2020-10-07] MEDS: cefTRIAXone 1,000 MG/SWFI 10 ML IV PUSH IV SCH ×2 (11:02)
[2020-10-07 11:20] VITALS: BP 129/85
[2020-10-08 11:05] VITALS: BP 129/81
[2020-10-08] MEDS: cefTRIAXone 1,000 MG/SWFI 10 ML IV PUSH IV SCH ×2 (11:07)
[2020-10-09 11:00] VITALS: BP 120/88
[2020-10-09] MEDS: cefTRIAXone 1,000 MG/SWFI 10 ML IV PUSH IV SCH ×2 (11:12)
[2020-10-10] MEDS: cefTRIAXone 1,000 MG/SWFI 10 ML IV PUSH IV SCH ×2 (09:09)
[2020-10-10 09:15] VITALS: BP 137/90
[2020-10-11] MEDS: cefTRIAXone 1,000 MG/SWFI 10 ML IV PUSH IV SCH ×2 (09:12)
[2020-10-11 09:20] VITALS: BP 123/91
[2020-10-12] MEDS: cefTRIAXone 1,000 MG/SWFI 10 ML IV PUSH IV SCH ×2 (11:15)
[2020-10-12 11:20] VITALS: BP 120/95
[2020-10-13 11:15] VITALS: BP 133/89
[2020-10-13] MEDS: cefTRIAXone 1,000 MG/SWFI 10 ML IV PUSH IV SCH ×2 (11:15)
[2020-10-13 11:31] LABS: BASOPHILS # (AUTO) 0.1 10^3/uL (0.0-0.1); BASOPHILS % (AUTO) 2 % (0-10); EOSINOPHILS # (AUTO) 0.3 10^3/uL (0.0-0.3); EOSINOPHILS % (AUTO) 5 % (0-10); HEMATOCRIT 39 % (35-52); HEMOGLOBIN 12.6 g/dL (11.5-16.0); LYMPHOCYTES # (AUTO) 2.8 10^3/uL (1.0-4.0); LYMPHOCYTES % (AUTO) 43 % (12-44); MEAN CORPUSCULAR HEMOGLOBIN 29 pg (25-34); MEAN CORPUSCULAR HGB CONC 32 g/dL (32-36); MEAN CORPUSCULAR VOLUME 90 fL (80-99); MEAN PLATELET VOLUME 10.6 fL (9.0-12.2); MONOCYTES # (AUTO) 0.5 10^3/uL (0.0-1.0); MONOCYTES % (AUTO) 7 % (0-12); NEUTROPHILS # (AUTO) 2.8 10^3/uL (1.8-7.8); NEUTROPHILS % (AUTO) 43 % (42-75); PLATELET COUNT 224 10^3/uL (130-400); WHITE BLOOD COUNT 6.5 10^3/uL (4.3-11.0)
[2020-10-13 11:33] LABS: ALBUMIN 4.1 GM/DL (3.2-4.5); CHLORIDE 106 MMOL/L (98-107); POTASSIUM 4.4 MMOL/L (3.6-5.0); SODIUM 138 MMOL/L (135-145)
[2020-10-13 11:34] LABS: CALCIUM 9.1 MG/DL (8.5-10.1)
[2020-10-13 11:35] LABS: GLUCOSE 84 MG/DL (70-105); TOTAL PROTEIN 7.6 GM/DL (6.4-8.2)
[2020-10-13 11:36] LABS: CARBON DIOXIDE 24 MMOL/L (21-32)
[2020-10-13 11:37] LABS: BILIRUBIN,TOTAL 0.8 MG/DL (0.1-1.0)
[2020-10-13 11:39] LABS: ALKALINE PHOSPHATASE 81 U/L (40-136); CREATININE SERUM 0.74 MG/DL (0.60-1.30); GFR ESTIMATED > 60
[2020-10-13 11:40] LABS: BUN/CREATININE RATIO 19
[2020-10-13 11:42] LABS: ALANINE AMINOTRANSFERASE 47 U/L (0-55)
[2020-10-13 11:55] LABS: ERYTHROCYTE SEDIMENTATION RATE 9 MM/HR (0-30)
[2020-10-14] MEDS: cefTRIAXone 1,000 MG/SWFI 10 ML IV PUSH IV SCH ×2 (08:20)
[2020-10-14 08:30] VITALS: BP 142/76
[2020-10-15] MEDS: cefTRIAXone 1,000 MG/SWFI 10 ML IV PUSH IV SCH ×2 (10:57)
[2020-10-15 11:05] VITALS: BP 119/86
[2020-10-16 11:15] VITALS: BP 142/93
[2020-10-16] MEDS: cefTRIAXone 1,000 MG/SWFI 10 ML IV PUSH IV SCH ×2 (11:17)
[2020-10-17] MEDS: cefTRIAXone 1,000 MG/SWFI 10 ML IV PUSH IV SCH ×2 (09:35)
[2020-10-17 09:40] VITALS: BP 128/85
[2020-10-18] MEDS: cefTRIAXone 1,000 MG/SWFI 10 ML IV PUSH IV SCH ×2 (09:10)
[2020-10-18 09:15] VITALS: BP 129/93
[~2020-10-19] VITALS: Ht 170.2 cm; Wt 86.0 kg
[~2020-10-19 10:56] MED LIST changes: -CATHETER FLUSH 10 ML SYR IV PRN; -HOLD METFORMIN - RECEIVED CONTRAST 20 ML VIAL IV SCH; -IOHEXOL 350 MG/ML 100 ML (OMNIPAQUE 350) VIAL IV ONE; -NS 100 ML (IVPB) BAG IV ONE; +WATER (STERILE) FOR INJECTION 10 ML ONE; +cefTRIAXone 1,000 MG IV (ROCEPHIN) VIAL ONE
[2020-10-19] MEDS: cefTRIAXone 1,000 MG/SWFI 10 ML IV PUSH IV SCH ×2 (10:58)
[2020-10-19 11:11] VITALS: BP 151/92
== END 2020-10-19 11:10 | disposition home or self-care (01) ==
LOC: SDC 10:56
PROVIDERS: ATTEND Internal Medicine
DX: Z51.81 Encounter for therapeutic drug level monitoring (principal)
CPT/HCPCS: 36415; 80053; 83615; 85007; 85025; 85027; 85045; 85055; 85652; 86141; 96374; 99211

== ENCOUNTER → 2020-11-16 | Outpatient (CLI) | payer BC ==
[~2020-11-16] MED LIST changes: +MONT10TA32 PO; -MONT10TA97 PO; -WATER (STERILE) FOR INJECTION 10 ML ONE; -cefTRIAXone 1,000 MG IV (ROCEPHIN) VIAL ONE
--- NOTE | 2020-11-16 09:38 | Diagnostic Imaging Report ---
INDICATION: Routine screening. Comparison is made with prior mammogram 11/14/2019 and 10/29/2018. 2-D and 3-D bilateral screening mammography was performed with CAD. Scattered fibroglandular densities are identified bilaterally. Benign lymph nodes upper outer right breast are stable. No new mass or malignant appearing microcalcifications are seen. Axillae are unremarkable. IMPRESSION: BI-RADS Category 2 No mammographic features suspicious for malignancy are identified. ACR BI-RADS Category 2: Benign findings. Result letter will be mailed to the patient. Note: At least 10% of breast cancer is not imaged by mammography. Dictated by: Dictated on workstation # [id number]
== END ==
LOC: RAD 07:30
PROVIDERS: ATTEND Internal Medicine
DX: Z12.31 Encounter for screening mammogram for malignant neoplasm of breast (principal)
CPT/HCPCS: 77063; 77067

== ENCOUNTER → 2021-04-15 | Outpatient (CLI) | payer BC ==
[~2021-04-15] MED LIST changes: +CATHETER FLUSH 10 ML SYR IV PRN; +HOLD METFORMIN - RECEIVED CONTRAST 20 ML VIAL IV SCH; +IOHEXOL 350 MG/ML 100 ML (OMNIPAQUE 350) VIAL IV ONE; +NS 100 ML (IVPB) BAG IV ONE
[2021-04-15 07:26] LABS: POTASSIUM 4.4 MMOL/L (3.6-5.0)
[2021-04-15 07:31] LABS: CREATININE SERUM 0.85 MG/DL (0.60-1.30)
--- NOTE | 2021-04-15 08:48 | Diagnostic Imaging Report ---
PROCEDURE: CT chest with contrast only. TECHNIQUE: Multiple contiguous axial images were obtained through the chest after administration of intravenous contrast. Auto Exposure Controls were utilized during the CT exam to meet ALARA standards for radiation dose reduction. INDICATION: History of Covid, asthma and pulmonary nodules. Compared with chest CT 10/14/2020. FINDINGS: Stable benign subpleural nodule 4 mm right lower lobe remains unchanged requires no further workup. No suspicious lung nodule. No alveolar consolidation and no groundglass opacity. No evidence for pneumonia or pulmonary edema. There is no effusion, pneumothorax or abscess. There is no thoracic lymphadenopathy. The aorta is nonaneurysmal. There is no pleural or pericardial effusion. No suspicious chest wall pathology. Upper abdomen shows likely hepatic steatosis with no acute appearing abnormality. IMPRESSION: 1. Continued stability a benign subpleural nodule right lower lobe requires no further workup. 2. No adverse change acute or suspicious findings. Dictated by: Dictated on workstation # [id number]
== END ==
LOC: RAD 08:15
PROVIDERS: ATTEND Internal Medicine
DX: R91.1 Solitary pulmonary nodule (principal); R91.8 Other nonspecific abnormal finding of lung field; I10 Essential (primary) hypertension; Z86.16 Personal history of COVID-19
CPT/HCPCS: 36415; 71260; 80048

== ENCOUNTER → 2021-11-18 | Outpatient (CLI) | payer BC ==
[~2021-11-18] MED LIST changes: -CATHETER FLUSH 10 ML SYR IV PRN; -HOLD METFORMIN - RECEIVED CONTRAST 20 ML VIAL IV SCH; -IOHEXOL 350 MG/ML 100 ML (OMNIPAQUE 350) VIAL IV ONE; +MONT-40 PO; -MONT10TA32 PO; -NS 100 ML (IVPB) BAG IV ONE
--- NOTE | 2021-11-18 09:22 | Diagnostic Imaging Report ---
INDICATION: Routine screening. COMPARISON: 11/16/2020 and 11/14/2019. TECHNIQUE: 2D and 3D bilateral screening mammography was performed with CAD. FINDINGS: Scattered fibroglandular densities are identified bilaterally. Benign intraparenchymal lymph nodes in the upper outer right breast are stable. No spiculated mass or malignant-appearing microcalcifications are seen. The axillae are unremarkable. IMPRESSION: No mammographic features suspicious for malignancy are identified. ACR BI-RADS Category 2: Benign findings. Result letter will be mailed to the patient. Note: At least 10% of breast cancer is not imaged by mammography. Dictated by: Dictated on workstation # [id number]
== END ==
LOC: RAD 07:30
PROVIDERS: ATTEND Internal Medicine
DX: Z12.31 Encounter for screening mammogram for malignant neoplasm of breast (principal)
CPT/HCPCS: 77063; 77067

== ENCOUNTER 2022-11-08 05:31 | Inpatient (IN) | payer BC, MEDICARE ==
[~2022-11-08] VITALS: Ht 170.2 cm; Wt 90.8 kg
[2022-11-08] MEDS: NITROGLYCERIN 0.4 MG SL TABS BTL 25'S SL PRN ×2 (05:44→05:51)
[2022-11-08] MEDS ORDERED: ASPIRIN 81 MG CHEW (CHILDREN'S ASA) PO ONE (05:45)
[2022-11-08] MEDS ORDERED: HEParin 1000 UNIT/ML (10ML VIAL) FOR BOLUS ONE ×2 (05:52→06:23)
[2022-11-08] MEDS ORDERED: morphine INJ 10 MG/ML 1ML (SYR OR VIAL) IVP STA (05:55)
[2022-11-08] MEDS ORDERED: NS IV 1000 ML 1,000 ML IV SCH (06:00)
[2022-11-08] MEDS ORDERED: HEParin 1000 UNIT/ML (10ML VIAL) FOR BOLUS IV SCH (06:00)
[2022-11-08 06:03] LABS: BASOPHILS # (AUTO) 0.1 10^3/uL (0.0-0.1); BASOPHILS % (AUTO) 1 % (0-10); EOSINOPHILS # (AUTO) 0.1 10^3/uL (0.0-0.3); EOSINOPHILS % (AUTO) 1 % (0-10); HEMATOCRIT 34 % (35-52); HEMOGLOBIN 11.1 g/dL (11.5-16.0); LYMPHOCYTES # (AUTO) 2.2 10^3/uL (1.0-4.0); LYMPHOCYTES % (AUTO) 22 % (12-44); MEAN CORPUSCULAR HEMOGLOBIN 27 pg (25-34); MEAN CORPUSCULAR HGB CONC 33 g/dL (32-36); MEAN CORPUSCULAR VOLUME 83 fL (80-99); MEAN PLATELET VOLUME 10.3 fL (9.0-12.2); MONOCYTES # (AUTO) 0.6 10^3/uL (0.0-1.0); MONOCYTES % (AUTO) 6 % (0-12); NEUTROPHILS # (AUTO) 7.1 10^3/uL (1.8-7.8); NEUTROPHILS % (AUTO) 71 % (42-75); PLATELET COUNT 342 10^3/uL (130-400); WHITE BLOOD COUNT 10.1 10^3/uL (4.3-11.0)
--- NOTE | 2022-11-08 06:04 | ED Chest Pain ---
General Chief Complaint: Chest Pain Stated Complaint: CP Source: patient History of Present Illness Date Seen by Provider: Nov 08, 2022 Time Seen by Provider: 05:35 Initial Comments PT ARRIVES VIA POV FROM HOME STATES YESTERDAY SHE BEGAN TO HAVE SOME SHORTNESS OF BREATH ON EXERTION, THEN BEGAN TO HAVE SOME CHEST PAIN LAST EVENING PAIN WOKE HER UP AT 0100 THIS MORNING NORMALLY WALKS 3 MILES A DAY, BUT YESTERDAY HAD TO STOP DUE TO SHORTNESS OF BREATH. PT HAS ASTHMA AND THOUGHT IT WAS DUE TO ASTHMA THEN BEGAN HAVING CHEST PAIN--IN CENTER OF CHEST AND LEFT CHEST STATES IT IS A PRESSURE IN HER CHEST AND RATES IT 8/10 DID GET HOT DURING THE NIGHT, BUT NO SWEATS + NAUSEA, NO VOMITING NO DIZZINESS OR SYNCOPE NO PALPITATIONS NO HISTORY OF SIMILAR PT HAS HISTORY OF HYPERLIPIDEMIA AND ASTHMA PT HAS NEVER HAD CARDIAC PROBLEMS, HAD A STRESS TEST YEARS AGO AND WAS NORMAL. SHE HAS NEVER HAD ANY SURGERIES SHE IS NON-SMOKER, NON-DRINKER. NO FEVER OR RECENT ILLNESS PT IS COVID VACCINATED X 4, AND FLU VACCINATED PCP: DR. TO Allergies and Home Medications Allergies Coded Allergies: Penicillins (Verified Allergy, Unknown, 09/09/20) Patient Home Medication List Acetaminophen (Tylenol Extra Strength) 500 Mg Tablet, 500-1,000 MG PO Q8H PRN for PAIN-MILD (1-4), (Reported) Entered as Reported by: BRIGETTE NEGRON on 09/09/201556 Ceftriaxone Na/Dextrose,Iso (Ceftriaxone 1 gm Piggyback) 1 Gm/50 Ml Froz.piggy, 1 GM IV DAILY Prescribed by: TREMAINE TO on 09/14/20 09 Fluticasone Propionate (Flonase Allergy Relief) 9.9 Ml [place].susp, 2 SPRAY NS DAILY, (Reported) Entered as Reported by: BRIGETTE NEGRON on 09/09/201556 Fluticasone/Salmeterol (Advair 250-50 Diskus) 1 Each Blst.w.dev, 1 PUFF INH DAILY, (Reported) Entered as Reported by: BRIGETTE NEGRON on 09/09/201556 Venlafaxine HCl (Venlafaxine HCl ER) 150 Mg Cap.er.24h, 150 MG PO DAILY, (Reported) Entered as Reported by: BRIGETTE NEGRON on 09/09/201556 Review of Systems Review of Systems Constitutional: no symptoms reported EENTM: No Symptoms Reported Respiratory: See HPI, Shortness of Air, SOA With Exertion Cardiovascular: See HPI, Chest Pain; Denies Edema, Denies Irregular Heart Rate, Denies Lightheadedness, Denies Palpitations, Denies Syncope Gastrointestinal: See HPI; Denies Abdominal Pain, Denies Diarrhea; Nausea; Denies Vomiting Genitourinary: No Symptoms Reported Musculoskeletal: no symptoms reported Skin: no symptoms reported Psychiatric/Neurological: No Symptoms Reported, Anxiety Endocrine: No Symptoms Reported Hematologic/Lymphatic: No Symptoms Reported Past Tesmqor-Zdywjx-Gwbgak Hx Patient Social History Tobacco Use?: No Smoking Status: Never a Smoker Smokeless Tobacco Frequency: Never a User Use of E-Cig and/or Vaping dev: No Use of E-Cig and/or Vaping Mychal: Never a User Substance use?: No Alcohol Use?: No Immunizations Up To Date Tetanus Booster (TDap): Unknown Influenza Vaccine Up-to-Date: Yes; Up-to-Date First/Initial COVID19 Vaccinat: 2020 Second COVID19 Vaccination Greg: 2020 Third COVID19 Vaccination Date: 2021 COVID19 Vaccine River [employer]: [employer] X4 Seasonal Allergies Seasonal Allergies: Yes (asthma seasonal ) Past Medical History Surgeries: No Respiratory: Yes Asthma Currently Using CPAP: No Currently Using BIPAP: No Cardiac: Yes High Cholesterol Neurological: No Female Reproductive Disorders: Denies 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 Sexually Transmitted Disease: No HIV/AIDS: No Genitourinary: No Gastrointestinal: No Musculoskeletal: No Endocrine: No HEENT: No Loss of Vision: Denies Hearing Impairment: Denies Cancer: No Psychosocial: Yes Anxiety Integumentary: No Blood Disorders: No Adverse Reaction/Blood Tranf: No Family Medical History Hypertension 19 FATHER 19 MOTHER G8 BROTHER G8 BROTHER G8 SISTER Physical Exam Vital Signs Vital Signs - First Documented 11/08/22 05:32 Temp 36.6 Pulse 79 Resp 20 B/P (MAP) 162/101 (121) Pulse Ox 100 O2 Delivery Room Air Capillary Refill : Less Than 3 Seconds Height, Weight, BMI Height: 5'7.00" Weight: 177lbs. 0.0oz. 80.225731wl; 29.68 BMI Method: General Appearance: No Apparent Distress, WD/WN, Anxious (TEARFUL) HEENT: PERRL/EOMI Neck: Full Range of Motion, Normal Inspection, Non Tender, Supple; No Carotid Bruit, No JVD Respiratory: Chest Non Tender, Normal Breath Sounds, No Accessory Muscle Use, No Respiratory Distress Cardiovascular: Regular Rate, Rhythm, No Edema, No JVD, No Murmur, Normal Daniella pheral Pulses Gastrointestinal: Non Tender, Soft Extremity: Normal Capillary Refill, Normal Inspection, Normal Range of Motion, Non Tender, No Calf Tenderness, No Pedal Edema Neurologic/Psychiatric: Alert, Oriented x3, No Motor/Sensory Deficits, 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 as Tested Skin: Normal Color, Warm/Dry Progress/Results/Core Measures Results/Orders Lab Results Laboratory Tests Test 11/08/22 05:50 11/08/22 05:56 Range/Units White Blood Count 10.1 4.3-11.0 10^3/uL Red Blood Count 4.05 3.80-5.11 10^6/uL Hemoglobin 11.1 L 11.5-16.0 g/dL Hematocrit 34 L 35-52 % Mean Corpuscular Volume 83 80-99 fL Mean Corpuscular Hemoglobin 27 25-34 pg Mean Corpuscular Hemoglobin Concent 33 32-36 g/dL Red Cell Distribution Width 14.3 10.0-14.5 % Platelet Count 342 130-400 10^3/uL Mean Platelet Volume 10.3 9.0-12.2 fL Immature Granulocyte % (Auto) 0 % Neutrophils (%) (Auto) 71 42-75 % Lymphocytes (%) (Auto) 22 12-44 % Monocytes (%) (Auto) 6 0-12 % Eosinophils (%) (Auto) 1 0-10 % Basophils (%) (Auto) 1 0-10 % Neutrophils # (Auto) 7.1 1.8-7.8 10^3/uL Lymphocytes # (Auto) 2.2 1.0-4.0 10^3/uL Monocytes # (Auto) 0.6 0.0-1.0 10^3/uL Eosinophils # (Auto) 0.1 0.0-0.3 10^3/uL Basophils # (Auto) 0.1 0.0-0.1 10^3/uL Immature Granulocyte # (Auto) 0.0 0.0-0.1 10^3/uL Erythrocyte Sedimentation Rate 16 0-30 MM/HR D-Dimer <= 0.27 0.00-0.49 UG/ML Sodium Level 136 135-145 MMOL/L Potassium Level 4.0 3.6-5.0 MMOL/L Chloride Level 107 98-107 MMOL/L Carbon Dioxide Level 19 L 21-32 MMOL/L Anion Gap 10 5-14 MMOL/L Blood Urea Nitrogen 14 7-18 MG/DL Creatinine 0.77 0.60-1.30 MG/DL Estimat Glomerular Filtration Rate 85 BUN/Creatinine Ratio 18 Glucose Level 131 H 70-105 MG/DL Calcium Level 9.0 8.5-10.1 MG/DL Corrected Calcium 9.1 8.5-10.1 MG/DL Magnesium Level 1.9 1.6-2.4 MG/DL Total Bilirubin 1.1 H 0.1-1.0 MG/DL Aspartate Amino Transf (AST/SGOT) 61 H 5-34 U/L Alanine Aminotransferase (ALT/SGPT) 43 0-55 U/L Alkaline Phosphatase 85 40-136 U/L Total Creatine Kinase 652 H 29-168 U/L Myoglobin 105.6 H 10.0-92.0 NG/ML C-Reactive Protein High Sensitivity 0.12 0.00-0.50 MG/DL Total Protein 7.3 6.4-8.2 GM/DL Albumin 3.9 3.2-4.5 GM/DL Amylase Level 55 25-125 U/L Lipase 38 8-78 U/L Influenza Type A (RT-PCR) Not Detected Not Detecte Influenza Type B (RT-PCR) Not Detected Not Detecte SARS-CoV-2 RNA (RT-PCR) Not Detected Not Detecte My Orders Orders - ROBERTO TRONCOSO DO Ed Iv/Invasive Line Start (11/08/22 05:34) Ekg Tracing (11/08/22 05:34) O2 (11/08/22 05:34) Monitor-Rhythm Ecg Trace Only (11/08/22 05:34) Cbc With Automated Diff (11/08/22 05:34) Comprehensive Metabolic Panel (11/08/22 05:34) Fibrin Degradation Products (11/08/22 05:34) Hs C Reactive Protein (11/08/22 05:34) Erythrocyte Sedimentation Rate (11/08/22 05:34) Covid 19 Inhouse Test (11/08/22 05:34) Magnesium (11/08/22 05:34) Chest 1 View, Ap/Pa Only (11/08/22 05:34) Ekg Tracing (11/08/22 05:34) Myoglobin Serum (11/08/22 05:34) Protime With Inr (11/08/22 05:34) Partial Thromboplastin Time (11/08/22 05:34) O2 (11/08/22 05:34) Ed Iv/Invasive Line Start (11/08/22 05:34) Creatine Kinase (11/08/22 05:34) Creatine Kinase Mb (11/08/22 05:34) Lipase (11/08/22 05:34) Amylase (11/08/22 05:34) Bnp [place] (11/08/22 05:34) Troponin I Emeterio (11/08/22 05:34) Nitroglycerin 0.4 Mg Btl 25's (Nitrostat (11/08/22 05:45) Aspirin Chewable Tablet (Baby Aspirin Ch (11/08/22 05:45) Influenza A And B By Pcr (11/08/22 05:34) Isolation Central Supply Req (11/08/22 05:34) Heparin Injection (Heparin Injection) (11/08/22 05:51) Morphine Injection (Morphine Injection (11/08/22 05:55) Heparin (Bolus Per Protocol) (Heparin (B (11/08/22 06:00) Heparin (Bolus Per Protocol) (Heparin (B (11/08/22 05:52) Ed Iv/Invasive Line Start (11/08/22 05:56) Ns Iv 1000 Ml (Sodium Chloride 0.9%) (11/08/22 06:00) Medications Given in ED Current Medications Medications Dose Ordered Sig/Maxx Route Start Time Stop Time Status Last Admin Dose Admin Aspirin 324 mg ONCE ONCE PO 11/08/22 05:45 11/08/22 05:46 DC 11/08/22 05:44 324 MG Vital Signs/I&O 11/08/22 05:32 Temp 36.6 Pulse 79 Resp 20 B/P (MAP) 162/101 (121) Pulse Ox 100 O2 Delivery Room Air Progress Progress Note : Progress Note GIVEN: -ASPIRIN -MORPHINE--PAIN DOWN TO 6/10 -HEPARIN NO DETERIORATION IN PT'S CONDITION DURING ER STAY. Initial ECG Impression Date: Nov 08, 2022 Initial ECG Impression Time: 05:40 Initial ECG Rate: 71 Initial ECG Rhythm: Normal Sinus Initial ECG Impression: Acute IA (ST ELEVATION V1 V2, ST DEPRESSION INFERIOR AND LATERAL LEADS) Initial ECG Comparisson: Changed (FROM 2019) Diagnostic Imaging Comments CXR--PENDING RADIOLOGIST REVIEW -NO ACUTE PROCESS Reviewed: Reviewed by Me Departure Communication (Admissions) 0548--EKG SENT TO DR. MUSTAFA VIA TEXT AND SPOKE WITH DR. MUSTAFA. ADVISES TO CALL I N SALES FLOOR MANAGER. ORDERS NOTED FOR ASPIRIN AND HEPARIN 0550--SPOKE WITH DR. ROSA, PT'S DAUGHTER ( SHE HAD CONTACTED ME PRIOR TO PT'S A RRIVAL) 0554--SPOKE WITH DR. TO, AND UPDATED ON PT'S CONDITION 0555--DR. ROSA HERE. 0629--SALES FLOOR MANAGER TEAM HERE. Impression Primary Impression: STEMI (ST elevation myocardial infarction) Disposition: ADMITTED INPATIENT (TO SALES FLOOR MANAGER) Condition: Stable Admissions Decision to Admit Reason: Admit from ER (General) (TO SALES FLOOR MANAGER) Decision to Admit/Date: Nov 08, 2022 Time/Decision to Admit Time: 05:48 Departure-Patient Inst. Referrals: TREMAINE TO DO (PCP/Family) Primary Care Physician ROBERTO TRONCOSO DO Nov 08, 2022 06:04
[2022-11-08 06:23] LABS: MAGNESIUM 1.9 MG/DL (1.6-2.4)
[2022-11-08] MEDS ORDERED: LIDOCAINE 1% INJ 20 ML VIAL ONE (06:23)
[2022-11-08] MEDS ORDERED: MIDAZOLAM 5 MG/5 ML (VERSED) VIAL ONE (06:23)
[2022-11-08] MEDS ORDERED: HEParin (CATH LAB) 2,000 ML IV ONE (06:23)
[2022-11-08] MEDS ORDERED: fentaNYL INJ 100 MCG/2 ML AMP ONE (06:23)
[2022-11-08] MEDS ORDERED: NS IV 1000 ML 1,000 ML ONE (06:24)
[2022-11-08 06:25] LABS: ALBUMIN 3.9 GM/DL (3.2-4.5); BILIRUBIN,TOTAL 1.1 MG/DL (0.1-1.0); CREATININE SERUM 0.77 MG/DL (0.60-1.30); TOTAL PROTEIN 7.3 GM/DL (6.4-8.2)
[2022-11-08] MEDS ORDERED: NITRO DRIP 25000 MCG/D5W 0 ML IV ONE (06:27)
[2022-11-08 06:43] LABS: ERYTHROCYTE SEDIMENTATION RATE 16 MM/HR (0-30)
[2022-11-08 06:49] LABS: INR 1.1 (0.8-1.4); PROTHROMBIN TIME PATIENT 14.9 SEC (12.2-14.7)
--- NOTE | 2022-11-08 06:52 | Diagnostic Imaging Report ---
INDICATION: 67-year-old female with chest pain. COMPARISONS: 09/25/2020 FINDINGS: Single view chest shows normal heart, pleura and diaphragms. There are slight prominent central lung markings with some prominent central vascularity. No confluent consolidations seen. There is no effusion or pneumothorax. Soft tissues and bony thorax unremarkable. IMPRESSION: 1. Mild central venous congestion 2. An element of bronchitis is not excluded. No confluent consolidations seen. 3. Right-sided PICC line has been removed. Dictated by: Dictated on workstation # [id number]
[2022-11-08 06:56] LABS: CREATINE KINASE MB 83.4 NG/ML (<6.6)
[2022-11-08 07:16] LABS: PARTIAL THROMBOPLASTIN TIME > 200 SEC (24-35)
--- NOTE | 2022-11-08 07:26 | Consultation-Cardiology ---
HPI-Cardiology Cardiology Consultation Date of Consultation 11/08/22 Date of Admission Time Seen by Provider: 06:00 HPI 67-year-old lady with history of asthma, hypertension, hypothyroidism, noted that she was having increasing dyspnea on exertion yesterday, started to have chest pain last night, continue to have worsening chest pain, came into the emergency room and she had subtle ST changes in the leads V1 and V2. 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 On my evaluation she was still having some chest pain. No shortness of breath. Reported some diaphoresis. Home Medications & Allergies Allergies: Coded Allergies: Penicillins (Verified Allergy, Unknown, 09/09/20) Home Medication List Reviewed: Yes IVN-Qbubdo-Fxtkfo Hx Patient Social History Marital Status: Employed/Student: employed Smoking Status: Never a Smoker 2nd Hand Smoke Exposure: No Recent Hopitalizations: No Have you traveled recently?: No Alcohol Use?: No Immunizations Up To Date Tetanus Booster (TDap): Unknown Date of Influenza Vaccine: Jun 18, 2020 Past Medical History Discussed below Family Medical History Family History: Hypertension 19 FATHER 19 MOTHER G8 BROTHER G8 BROTHER G8 SISTER Review of Systems-General Review of Systems Constitutional: no symptoms reported EENTM: see HPI, no symptoms reported Respiratory: no symptoms reported, see HPI, dyspnea on exertion Cardiovascular: see HPI, chest pain; No edema, No Hx of Intervention, No palpitations, No syncope, No vascular heart diseas, No other Gastrointestinal: no symptoms reported, see HPI Genitourinary: no symptoms reported, see HPI Musculoskeletal: no symptoms reported Skin: no symptoms reported Psychiatric/Neurological: No Symptoms Reported, Anxiety Reviewed Test Results Reviewed Test Results Lab Laboratory Tests Test 11/08/22 05:50 11/08/22 05:56 Range/Units White Blood Count 10.1 4.3-11.0 10^3/uL Red Blood Count 4.05 3.80-5.11 10^6/uL Hemoglobin 11.1 L 11.5-16.0 g/dL Hematocrit 34 L 35-52 % Mean Corpuscular Volume 83 80-99 fL Mean Corpuscular Hemoglobin 27 25-34 pg Mean Corpuscular Hemoglobin Concent 33 32-36 g/dL Red Cell Distribution Width 14.3 10.0-14.5 % Platelet Count 342 130-400 10^3/uL Mean Platelet Volume 10.3 9.0-12.2 fL Immature Granulocyte % (Auto) 0 % Neutrophils (%) (Auto) 71 42-75 % Lymphocytes (%) (Auto) 22 12-44 % Monocytes (%) (Auto) 6 0-12 % Eosinophils (%) (Auto) 1 0-10 % Basophils (%) (Auto) 1 0-10 % Neutrophils # (Auto) 7.1 1.8-7.8 10^3/uL Lymphocytes # (Auto) 2.2 1.0-4.0 10^3/uL Monocytes # (Auto) 0.6 0.0-1.0 10^3/uL Eosinophils # (Auto) 0.1 0.0-0.3 10^3/uL Basophils # (Auto) 0.1 0.0-0.1 10^3/uL Immature Granulocyte # (Auto) 0.0 0.0-0.1 10^3/uL Erythrocyte Sedimentation Rate 16 0-30 MM/HR Prothrombin Time 14.9 H 12.2-14.7 SEC INR Comment 1.1 0.8-1.4 Activated Partial Thromboplast Time > 200 *H 24-35 SEC D-Dimer <= 0.27 0.00-0.49 UG/ML Sodium Level 136 135-145 MMOL/L Potassium Level 4.0 3.6-5.0 MMOL/L Chloride Level 107 98-107 MMOL/L Carbon Dioxide Level 19 L 21-32 MMOL/L Anion Gap 10 5-14 MMOL/L Blood Urea Nitrogen 14 7-18 MG/DL Creatinine 0.77 0.60-1.30 MG/DL Estimat Glomerular Filtration Rate 85 BUN/Creatinine Ratio 18 Glucose Level 131 H 70-105 MG/DL Calcium Level 9.0 8.5-10.1 MG/DL Corrected Calcium 9.1 8.5-10.1 MG/DL Magnesium Level 1.9 1.6-2.4 MG/DL Total Bilirubin 1.1 H 0.1-1.0 MG/DL Aspartate Amino Transf (AST/SGOT) 61 H 5-34 U/L Alanine Aminotransferase (ALT/SGPT) 43 0-55 U/L Alkaline Phosphatase 85 40-136 U/L Total Creatine Kinase 652 H 29-168 U/L Creatine Kinase MB 83.4 *H <6.6 NG/ML Myoglobin 105.6 H 10.0-92.0 NG/ML Troponin I 4.515 *H <0.028 NG/ML C-Reactive Protein High Sensitivity 0.12 0.00-0.50 MG/DL B-Type Natriuretic Peptide 178.6 H <100.0 PG/ML Total Protein 7.3 6.4-8.2 GM/DL Albumin 3.9 3.2-4.5 GM/DL Amylase Level 55 25-125 U/L Lipase 38 8-78 U/L Influenza Type A (RT-PCR) Not Detected Not Detecte Influenza Type B (RT-PCR) Not Detected Not Detecte SARS-CoV-2 RNA (RT-PCR) Not Detected Not Detecte Physical Exam Physical Exam Vital Signs Vital Signs - First Documented 11/08/22 05:32 Temp 36.6 Pulse 79 Resp 20 B/P (MAP) 162/101 (121) Pulse Ox 100 O2 Delivery Room Air Capillary Refill : Less Than 3 Seconds Height, Weight, BMI Height: 5'7.00" Weight: 177lbs. 0.0oz. 80.847468yz; 27.00 BMI Method: General Appearance: No Apparent Distress, WD/WN, Anxious (TEARFUL) HEENT: PERRL/EOMI Neck: Full Range of Motion, Normal Inspection, Non Tender, Supple; No Carotid Bruit, No JVD Respiratory: Chest Non Tender, Normal Breath Sounds, No Accessory Muscle Use, No Respiratory Distress Cardiovascular: Regular Rate, Rhythm, No Edema, No JVD, No Murmur, Normal Peripheral Pulses Gastrointestinal: Non Tender, Soft Extremity: Normal Capillary Refill, Normal Inspection, Normal Range of Motion, Non Tender, No Calf Tenderness, No Pedal Edema Neurologic/Psychiatric: Alert, Oriented x3, No Motor/Sensory Deficits, 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 Norm as Tested Skin: Normal Color, Warm/Dry A/P-Cardiology Admission Diagnosis Acute ST elevation myocardial infarction Coronary artery disease Hypertension Hyperlipidemia Assessment/Plan Acute ST elevation myocardial infarction Received aspirin, heparin and nitroglycerin Emergency cardiac catheterization was advised Coronary artery disease, planning for cardiac catheterization Hypertension, starting on beta-blockers and DEIDRA inhibitor Hyperlipidemia, starting Lipitor 80 mg daily Bronchial asthma Hypothyroidism History of pulmonary nodule Clinical Quality Measures AMI/AHF: ASA po Prior to arrival: Yes (81MG ASA AT 0130) AUNDREA MUSTAFA MD Nov 08, 2022 07:26
--- NOTE | 2022-11-08 07:27 | Cardiac Procedure Note-CS/ASA ---
Pre-Procedure Note Pre-Op Procedure Note Date of Available H&P: Nov 08, 2022 Date H&P Reviewed: Nov 08, 2022 Time H&P Reviewed: 06:00 History & Physical: H&P Reviewed, Patient Examed, No changes noted Pre-Operative Diagnosis: Acute ST elevation myocardial infarction Conscious Sedation Pre-Proced Time 06:00 ASA Score 3 For ASA 3 and 4: Consider anesthesia and medical clearance. Also, for patients with a history of failed moderate sedation consider anesthesia. Airway Lungs Heart ASA score ASA 1: a normal healthy patient ASA 2: a patient with a mild systemic disease (mid diabetes, controlled hypertension, obesity ASA 3: a patient with a severe systemic disease that limits activity (angina, COPD, prior Myocardial infarction) ASA 4: a patient with an incapacitating disease that is a constant threat to life (CHF, renal failure) ASA 5: a moribund patient not expected to survive 24 hrs. (ruptured aneurysm) ASA 6: a declared brain- patient whose organs are being harvested. For emergent operations, add the letter E after the classification Mallampati Classification Grade 3 Sedation Plan Analgesia, Amnesia, Plan communicated to team members, Discussed options with patient/fam, Discussed risks with patient/fam The patient is an appropriate candidate to undergo the planned procedure, sedation, and anesthesia. The patient immediately re-assessed prior to indication. AUNDREA MUSTAFA MD Nov 08, 2022 07:27
[2022-11-08] MEDS ORDERED: TICAGRELOR 90 MG TABLET (BRILINTA) PO ONE (07:29)
[2022-11-08] MEDS ORDERED: PATIENT MAY USE OWN MEDS, ALL PO SCH (07:30)
--- NOTE | 2022-11-08 07:35 | Cardiac Cath Report ---
Cardiac Cath Report Physician (s)/Training Designer (s) Physician AUNDREA MUSTAFA MD Pre-Procedure Diagnosis Pre-Procedure Diagnosis: Acute ST elevation myocardial infarction Post-Procedure Note Procedure Start Date: Nov 08, 2022 Name of Procedure: Left heart catheterization Emergency stenting to the right coronary artery Findings/Procedure Note PROCEDURE NOTE: 67-year-old lady with history of hypertension, bronchial asthma, admitted with acute ST elevation myocardial infarction, emergency cardiac catheterization was advised. After explaining the procedure to the patient, all pros and cons were explained, all questions were answered. The patient signed the consent and then she was placed in the cardiac catheterization laboratory. Groin was prepped in SL fashion local anesthesia was used. Sheath placed in the right femoral artery. [employer]' right and left catheter were used to access the coronary system. Pigtail was used to access the left ventricular cavity. Left ventriculogram was done Peg right guide was used to access the right coronary system, patient has total occlusion of the right coronary artery with 100% lesion. BMW wire was maneuvered and advanced distally, heavy thrombus burden was noted. Extraction catheter was used reestablishment of flow was at 60-minute from door time. Predilatation with 2.5 x 20 mm balloon then I proceeded with the placement of 3 x 28 mm maico point stent postdilated to 3.6 mm. I was satisfied with the result there was a lesion in the mid right coronary artery 80% stenosis, I proceeded with stenting that lesion also with 3 x 23 mm maico point stent expanded to 3.6 mm. I used noncompliant 3.5 balloon and went up to 16 johnnie at the overlap area. Angiogram showed excellent results with 0% residual stenosis. At the end of the procedure the sheath was removed. Closure device was deployed FINDINGS: Hemodynamics LV 148/22, end-diastolic pressure of 22 Aorta 148/82 mean of 112 ANATOMY: Left Main is free of obstructive disease Left Anterior Descending slightly tortuous artery with 20 to 30% stenosis nonobstructive disease Left Circumflex is moderate in size nondominant artery Right Coronary Artery is large dominant artery with total occlusion proximally, successful thrombectomy then deployment of 2 overlapping stents proximally 3 x 28 mm Skypoint stent followed by 3 x 23 mm maico point stent overlapping both dilated to 3.5-3.6 mm with 0% residual stenosis. TERESA flow postintervention was 3 LV Gram was done showing normal left ventricular size, systolic function is preserved estimated ejection fraction 50% PERCUTANEOUS INTERVENTION: Pre stenosis 100% Post Stenosis 0% Pre TERESA flow 0 Post TERESA flow 3 Dominance right coronary artery CONCLUSION: Acute ST elevation myocardial infarction with door to establishment of flow 60 minutes Total occlusion of the proximal right coronary artery with thrombectomy then deployment of 2 stents Skypoint 3 x 28 followed by 3 x 23 mm expanded to 3.5 mm distally and 3.6 mm at the overlap point with 0% residual stenosis 20 to 30% stenosis in the proximal LAD nonobstructive disease Otherwise no significant obstructive disease was noted Normal left ventricular size systolic function is preserved estimated ejection fraction 50% DISCUSSION AND RECOMMENDATION: Patient was started on aspirin, Brilinta, Toprol, losartan, Lipitor 80 mg daily Anesthesia Type: Conscious Sedation Estimated blood loss (mL): 25 ml Contrast Amount: 125 ml Total Radiation Dose: 742 mGy Post-Procedure Diagnosis Post-operative diagnosis: Acute ST elevation myocardial infarction Coronary artery disease Hypertension Hyperlipidemia AUNDREA MUSTAFA MD Nov 08, 2022 07:35
[2022-11-08] MEDS: NS IV 1000 ML 1,000 ML IV SCH ×2 (07:48→17:52)
[2022-11-08 07:56] LABS: CHOLESTEROL 163 MG/DL (< 200); HDL CHOLESTEROL 55 MG/DL (40-60); TRIGLYCERIDES 64 MG/DL (<150); VLDL CHOLESTEROL 13 MG/DL (5-40)
[2022-11-08] MEDS: TICAGRELOR 90 MG TABLET (BRILINTA) PO SCH ×2 (08:31→20:57)
[2022-11-08] MEDS: ASPIRIN E.C. 81 MG (ECOTRIN) TAB PO SCH (08:31)
[2022-11-08] MEDS: PANTOPRAZOLE 40 MG (PROTONIX) TAB PO SCH (08:37)
[2022-11-08] MEDS: LOSARTAN 25 MG (COZAAR) TAB PO SCH (08:37)
--- NOTE | 2022-11-08 08:42 | History & Physical ---
History of Present Illness HPI/Chief Complaint CC: STEMI s/p 2 stents in RCA HPI: This is a 67yoWF clinic patient of [facility] for past 19 years who has a h/o HTN, Hypothyroidism and asthma who presented to the ER with complaints of chest pain which started earlier in the day but worsened to the point of concern so she had her spouse bring her to ER and was found to have STEMI on EKG so she was brought to emergent cath and Dr Davis placed 2 stents in RCA with no comp lications. She had been maintained on statin therapy for several years but she has a strong history of CAD. Source: patient, family, RN/MD Exam Limitations: no limitations Date Seen 11/08/22 Time Seen by a Provider: 09:30 Attending Physician Beverly Draper DO PCP Admitting Physician: Halina Davis MD Attending Physician: Beverly Draper DO Referring Physician Date of Admission Nov 08, 2022 at 07:35 Home Medications & Allergies Home Medications Reviewed patient Home Medication Reconciliation performed by pharmacy medication reconciliations remote sensing technician and/or nursing. Patients Allergies have been reviewed. Allergies Allergies Coded Allergies Penicillins (Verified Allergy, Unknown, 09/09/20) Past [id number] Hx Past Med/Social Hx: Reviewed Nursing Past Med/Soc Hx, Reviewed and Corrections made Patient Social History Marrital Status: Employed/Student: retired Alcohol Use: Occasionally Uses Alcohol Beverage of Choice: Beer Smoking Status: Never a Smoker 2nd Hand Smoke Exposure: No Recent Hopitalizations: No Immunizations Up To Date Tetanus Booster (TDap): Unknown Date of Influenza Vaccine: Jun 18, 2020 Seasonal Allergies Seasonal Allergies: Yes (asthma seasonal ) Past Medical History Respiratory: Asthma, Pneumonia Currently Using CPAP: No Currently Using BIPAP: No Cardiac: High Cholesterol Sexually Transmitted Disease: No HIV/AIDS: No Female Reproductive Disorders: Denies Menopausal Endocrine: Hypothyroidsim Loss of Vision: Denies Hearing Impairment: Denies Psychosocial: Anxiety History of Blood Disorders: No Adverse Reaction to Blood Sebastian: No Family History Hypertension 19 FATHER 19 MOTHER G8 BROTHER G8 BROTHER G8 SISTER Review of Systems Constitutional: see HPI EENTM: see HPI Respiratory: see HPI Cardiovascular: chest pain Genitourinary: see HPI Musculoskeletal: see HPI Skin: see HPI Psychiatric/Neurological: See HPI Physical Exam Physical Exam Vital Signs Vital Signs - First Documented 11/08/22 05:32 Temp 36.6 Pulse 79 Resp 20 B/P (MAP) 162/101 (121) Pulse Ox 100 O2 Delivery Room Air Capillary Refill : Less Than 3 Seconds Height, Weight, BMI Height: 5'7.00" Weight: 177lbs. 0.0oz. [id number]; 27.00 BMI Method: General Appearance: No Apparent Distress, WD/WN, Anxious (TEARFUL) HEENT: PERRL/EOMI Neck: Full Range of Motion, Normal Inspection, Non Tender, Supple; No Carotid Bruit, No JVD Respiratory: Chest Non Tender, Normal Breath Sounds, No Accessory Muscle Use, No Respiratory Distress Cardiovascular: Regular Rate, Rhythm, No Edema, No JVD, No Murmur, Normal Peripheral Pulses Gastrointestinal: Non Tender, Soft Extremity: Normal Capillary Refill, Normal Inspection, Normal Range of Motion, Non Tender, No Calf Tenderness, No Pedal Edema Neurologic/Psychiatric: Alert, Oriented x3, No Motor/Sensory Deficits, heat treater II- XII Norm as Tested Skin: Normal Color, Warm/Dry Results Results/Procedures Labs Laboratory Tests 11/08/22 05:50 Patient resulted labs reviewed. Assessment/Plan Admission Diagnosis Assessment: STEMI s/p emergent cath with 2 stents placed in RCA HLP on statin as outpatient Hypothyroidism Anxiety Plan: Monitor closely Appreciate Cardiology Admission Status: Inpatient Order (span 2 midnights) Reason for Inpatient Admission: stemi Diagnosis/Problems Diagnosis/Problems (1) STEMI (ST elevation myocardial infarction) Status: Acute Clinical Quality Measures AMI/AHF: ASA po Prior to arrival: Yes (81MG ASA AT 0130) BEVERLY DRAPER DO Nov 08, 2022 08:42
[2022-11-08] MEDS ORDERED: ACETAMINOPHEN 500 MG TAB (TYLENOL) ONE (10:51)
[2022-11-08] MEDS: ACETAMINOPHEN 500 MG TAB (TYLENOL) PO PRN ×2 (10:52→14:17)
[2022-11-08] MEDS ORDERED: DOCU100C37 PO (14:21)
[2022-11-08] MEDS ORDERED: LEVO50TA6 PO (14:21)
[2022-11-08] MEDS ORDERED: ATOR10TA66 PO (14:21)
[2022-11-08] MEDS ORDERED: ASPI325T32 PO (14:21)
[2022-11-08] MEDS ORDERED: diphenhydrAMINE 25 MG TAB (BENADRYL) PO SCH (21:00)
[2022-11-08] MEDS ORDERED: ACETAMINOPHEN 500 MG TAB (TYLENOL) PO SCH (21:00)
[2022-11-08] MEDS ORDERED: DOCUSATE SODIUM 100 MG (COLACE) CAP PO PRN (21:00)
[2022-11-09] MEDS: NS IV 1000 ML 1,000 ML IV SCH (03:30)
[2022-11-09 05:36] LABS: BASOPHILS # (AUTO) 0.1 10^3/uL (0.0-0.1); BASOPHILS % (AUTO) 1 % (0-10); EOSINOPHILS # (AUTO) 0.1 10^3/uL (0.0-0.3); EOSINOPHILS % (AUTO) 1 % (0-10); HEMATOCRIT 34 % (35-52); HEMOGLOBIN 10.9 g/dL (11.5-16.0); LYMPHOCYTES # (AUTO) 2.4 10^3/uL (1.0-4.0); LYMPHOCYTES % (AUTO) 25 % (12-44); MEAN CORPUSCULAR HEMOGLOBIN 27 pg (25-34); MEAN CORPUSCULAR HGB CONC 32 g/dL (32-36); MEAN CORPUSCULAR VOLUME 84 fL (80-99); MEAN PLATELET VOLUME 10.6 fL (9.0-12.2); MONOCYTES # (AUTO) 0.7 10^3/uL (0.0-1.0); MONOCYTES % (AUTO) 7 % (0-12); NEUTROPHILS # (AUTO) 6.3 10^3/uL (1.8-7.8); NEUTROPHILS % (AUTO) 67 % (42-75); PLATELET COUNT 289 10^3/uL (130-400); WHITE BLOOD COUNT 9.5 10^3/uL (4.3-11.0)
[2022-11-09 05:41] LABS: ALBUMIN 3.9 GM/DL (3.2-4.5); POTASSIUM 4.3 MMOL/L (3.6-5.0)
[2022-11-09 05:42] LABS: CALCIUM 8.9 MG/DL (8.5-10.1)
[2022-11-09 05:44] LABS: TOTAL PROTEIN 7.3 GM/DL (6.4-8.2)
[2022-11-09 05:45] LABS: BILIRUBIN,TOTAL 1.4 MG/DL (0.1-1.0)
[2022-11-09 05:47] LABS: CREATININE SERUM 0.77 MG/DL (0.60-1.30)
[2022-11-09 05:50] LABS: MAGNESIUM 1.9 MG/DL (1.6-2.4)
[2022-11-09] MEDS ORDERED: POTASSIUM CL 10MEQ/50ML IVPB 50 ML IV SCH (06:00)
[2022-11-09] MEDS ORDERED: NS IV 500 ML 500 ML IV PRN (06:00)
[2022-11-09] MEDS ORDERED: MAGNESIUM 1 GM/100 ML IVPB 100 ML IV SCH (06:00)
[2022-11-09] MEDS ORDERED: KCL 20 MEQ TAB (K-DUR) PO SCH (06:00)
[2022-11-09] MEDS ORDERED: LEVOTHYROXINE 50 MCG (LEVOTHROID) TAB PO SCH ×2 (06:20→06:30)
[2022-11-09] MEDS: MAGNESIUM 1 GM/100 ML IVPB 100 ML IV SCH ×2 (06:20→07:55)
[2022-11-09] MEDS ORDERED: VENlafaxine XR 75 MG (EFFEXOR XR) CAP PO SCH (07:00)
[2022-11-09] MEDS: PANTOPRAZOLE 40 MG (PROTONIX) TAB PO SCH (07:54)
[2022-11-09] MEDS: TICAGRELOR 90 MG TABLET (BRILINTA) PO SCH (07:54)
[2022-11-09] MEDS: LOSARTAN 25 MG (COZAAR) TAB PO SCH (07:54)
[2022-11-09] MEDS: ASPIRIN E.C. 81 MG (ECOTRIN) TAB PO SCH (07:54)
--- NOTE | 2022-11-09 09:26 | Cardiology Progress Note ---
Subjective Date Seen by Provider: Nov 09, 2022 Time Seen by Provider: 09:21 Subjective/Events-last exam Patient is sitting up in bed, no new complaints. Denies any further episode of chest pain Objective-Cardiology Exam Last Set of Vital Signs Vital Signs 11/09/22 11/09/22 07:53 09:00 Temp 37.6 Pulse 84 B/P (MAP) 157/87 (110) Pulse Ox 97 O2 Delivery Room Air I&O Intake and Output 11/09/22 00:00 Intake Total 3600 ml Output Total 900 ml Balance 2700 ml Intake Oral 2600 ml IV Total 1000 ml Output Urine Total 900 ml # Voids 6 Daily Weight Change No General: Alert, Oriented X3, Cooperative HEENT: Atraumatic, PERRLA Lungs: Clear to Auscultation, Normal Air Movement Heart: Regular Rate, Normal S1, Normal S2, No Murmurs Abdomen: Normal Bowel Sounds, Soft Extremities: No Edema Skin: No Rashes, No Significant Lesion Neuro: Normal Speech Psych/Mental Status: Mental Status NL, Mood NL Results Lab Laboratory Tests 11/09/22 05:09 A/P-Cardiology Admission Diagnosis Acute ST elevation myocardial infarction Coronary artery disease Hypertension Hyperlipidemia Assessment/Plan Coronary artery disease, planning for cardiac catheterization, Acute ST elevation myocardial infarction. Underwent emergent cardiac catheterization on 11/08/22 showing total occlusion of the proximal right coronary artery with thrombectomy then deployment of 2 stents [place] 3 x 28 followed by 3 x 23 mm expanded to 3.5 mm distally and 3.6 mm at the overlap point with 0% residual stenosis 20 to 30% stenosis in the proximal LAD nonobstructive disease. Otherwise no significant obstructive disease was noted. Maintained on Brilinta and ASA. 2D Echo done 11/08/22 showing mild concentric hypertrophy, EF 45-50%, grade 1 diastolic dysfunction, trivial AR, PA 20mmHg. Hypertension, started on beta-blockers and DEIDRA inhibitor. Continue to monitor blood pressure Hyperlipidemia, Lipitor decreased to 40mg daily d/t mildly elevated LFTs. Will continue to monitor lipids as outpatient. Bronchial asthma Hypothyroidism History of pulmonary nodule Ok for discharge from cardiology standpoint. F/u in our office next week. STEFFI BANEGAS Nov 09, 2022 09:26
[2022-11-09] MEDS ORDERED: ATOR40TA PO (09:48)
[2022-11-09] MEDS ORDERED: TICA90TA PO (09:48)
[2022-11-09] MEDS ORDERED: NITR0.4T42 SL (09:48)
[2022-11-09] MEDS ORDERED: MTP25TSR PO (09:48)
[2022-11-09] MEDS ORDERED: ASPI-1238 PO (09:48)
[2022-11-09] MEDS ORDERED: LOSA25TA41 PO (09:48)
--- NOTE | 2022-11-09 10:14 | Discharge Summary ---
Diagnosis/Chief Complaint Date of Admission Nov 08, 2022 at 07:35 Date of Discharge Discharge Date: Nov 09, 2022 Discharge Diagnosis Assessment: STEMI s/p emergent cath with 2 stents placed in RCA HLP on statin as outpatient Hypothyroidism Anxiety Discharge Summary Discharge Physical Examination Allergies: Coded Allergies: Penicillins (Verified Allergy, Unknown, 09/09/20) Vitals & I&Os Vital Signs Date Time Temp Pulse Resp B/P (MAP) Pulse Ox O2 Delivery O2 Flow Rate FiO2 11/09/22 12:00 37.3 11/09/22 11:40 150/82 11/09/22 11:00 80 96 Room Air 11/09/22 10:00 30 Hospital Course Was the Problem List Reviewed?: Yes Short course after she presented to the ER with chest pain and was emergently taken to freezer laboratory technician and Dr Davis placed 2 stents in RCA. Meds were tolerated and not complications occurred and she was DC in improved condition. Labs (last 24 hrs) Laboratory Tests 11/08/22 05:50: White Blood Count 10.1, Red Blood Count 4.05, Hemoglobin 11.1L, Hematocrit 34L, Mean Corpuscular Volume 83, Mean Corpuscular Hemoglobin 27, Mean Corpuscular Hemoglobin Concent 33, Red Cell Distribution Width 14.3, Platelet Count 342, Mean Platelet Volume 10.3, Immature Granulocyte % (Auto) 0, Neutrophils (%) (Auto) 71, Lymphocytes (%) (Auto) 22, Monocytes (%) (Auto) 6, Eosinophils (%) (Auto) 1, Basophils (%) (Auto) 1, Neutrophils # (Auto) 7.1, Lymphocytes # (Auto) 2.2, Monocytes # (Auto) 0.6, Eosinophils # (Auto) 0.1, Basophils # (Auto) 0.1, Immature Granulocyte # (Auto) 0.0, Erythrocyte Sedimentation Rate 16, Prothrombin Time 14.9H, INR Comment 1.1, Activated Partial Thromboplast Time > 200*H, D-Dimer <= 0.27, Sodium Level 136, Potassium Level 4.0, Chloride Level 107, Carbon Dioxide Level 19L, Anion Gap 10, Blood Urea Nitrogen 14, Creatinine 0.77, Estimat Glomerular Filtration Rate 85, BUN/Creatinine Ratio 18, Glucose Level 131H, Calcium Level 9.0, Corrected Calcium 9.1, Magnesium Level 1.9, Total Bilirubin 1.1H, Aspartate Amino Transf (AST/SGOT) 61H, Alanine Aminotransferase (ALT/SGPT) 43, Alkaline Phosphatase 85, Total Creatine Kinase 652H, Creatine Kinase MB 83.4*H, Myoglobin 105.6H, Troponin I 4.515*H, C-Reactive Protein High Sensitivity 0.12, B-Type Natriuretic Peptide 178.6H, Total Protein 7.3, Albumin 3.9, Triglycerides Level 64, Cholesterol Level 163, LDL Cholesterol Direct 99, VLDL Cholesterol 13, HDL Cholesterol 55, Amylase Level 55, Lipase 38 11/08/22 05:56: Influenza Type A (RT-PCR) Not Detected, Influenza Type B (RT-PCR) Not Detected, SARS-CoV-2 RNA (RT-PCR) Not Detected 11/08/22 21:14: Mean Blood Glucose 114, Hemoglobin A1c 5.6, Thyroid Stimulating Hormone (TSH) 1.25 11/09/22 05:09: White Blood Count 9.5, Red Blood Count 4.06, Hemoglobin 10.9L, Hematocrit 34L, Mean Corpuscular Volume 84, Mean Corpuscular Hemoglobin 27, Mean Corpuscular Hemoglobin Concent 32, Red Cell Distribution Width 14.6H, Platelet Count 289, Mean Platelet Volume 10.6, Immature Granulocyte % (Auto) 0, Neutrophils (%) (Auto) 67, Lymphocytes (%) (Auto) 25, Monocytes (%) (Auto) 7, Eosinophils (%) (Auto) 1, Basophils (%) (Auto) 1, Neutrophils # (Auto) 6.3, Lymphocytes # (Auto) 2.4, Monocytes # (Auto) 0.7, Eosinophils # (Auto) 0.1, Basophils # (Auto) 0.1, Immature Granulocyte # (Auto) 0.0, Sodium Level 141, Potassium Level 4.3, Chloride Level 111H, Carbon Dioxide Level 21, Anion Gap 9, Blood Urea Nitrogen 8, Creatinine 0.77, Estimat Glomerular Filtration Rate 85, BUN/Creatinine Ratio 10, Glucose Level 110H, Calcium Level 8.9, Corrected Calcium 9.0, Magnesium Level 1.9, Total Bilirubin 1.4H, Aspartate Amino Transf (AST/SGOT) 101H, Alanine Aminotransferase (ALT/SGPT) 44, Alkaline Phosphatase 88, Total Protein 7.3, Albumin 3.9 Pending Labs Laboratory Tests 11/08/22 05:50: White Blood Count 10.1, Red Blood Count 4.05, Hemoglobin 11.1, Hematocrit 34, Mean Corpuscular Volume 83, Mean Corpuscular Hemoglobin 27, Mean Corpuscular Hemoglobin Concent 33, Red Cell Distribution Width 14.3, Platelet Count 342, Mean Platelet Volume 10.3, Immature Granulocyte % (Auto) 0, Neutrophils (%) (Auto) 71, Lymphocytes (%) (Auto) 22, Monocytes (%) (Auto) 6, Eosinophils (%) (Auto) 1, Basophils (%) (Auto) 1, Neutrophils # (Auto) 7.1, Lymphocytes # (Auto) 2.2, Monocytes # (Auto) 0.6, Eosinophils # (Auto) 0.1, Basophils # (Auto) 0.1, Immature Granulocyte # (Auto) 0.0, Erythrocyte Sedimentation Rate 16, Prothrombi n Time 14.9, INR Comment 1.1, Activated Partial Thromboplast Time > 200, D-Dimer <= 0.27, Sodium Level 136, Potassium Level 4.0, Chloride Level 107, Carbon Dioxide Level 19, Anion Gap 10, Blood Urea Nitrogen 14, Creatinine 0.77, Estimat Glomerular Filtration Rate 85, BUN/Creatinine Ratio 18, Glucose Level 131, Calcium Level 9.0, Corrected Calcium 9.1, Magnesium Level 1.9, Total Bilirubin 1.1, Aspartate Amino Transf (AST/SGOT) 61, Alanine Aminotransferase (ALT/SGPT) 43, Alkaline Phosphatase 85, Total Creatine Kinase 652, Creatine Kinase MB 83.4, Myoglobin 105.6, Troponin I 4.515, C-Reactive Protein High Sensitivity 0.12, B- Type Natriuretic Peptide 178.6, Total Protein 7.3, Albumin 3.9, Triglycerides Level 64, Cholesterol Level 163, LDL Cholesterol Direct 99, VLDL Cholesterol 13, HDL Cholesterol 55, Amylase Level 55, Lipase 38 11/08/22 05:56: Influenza Type A (RT-PCR) Not Detected, Influenza Type B (RT-PCR) Not Detected, SARS-CoV-2 RNA (RT-PCR) Not Detected 11/08/22 21:14: Mean Blood Glucose 114, Hemoglobin A1c 5.6, Thyroid Stimulating Hormone (TSH) 1.25 11/09/22 05:09: White Blood Count 9.5, Red Blood Count 4.06, Hemoglobin 10.9, Hematocrit 34, Mean Corpuscular Volume 84, Mean Corpuscular Hemoglobin 27, Mean Corpuscular Hemoglobin Concent 32, Red Cell Distribution Width 14.6, Platelet Count 289, Mean Platelet Volume 10.6, Immature Granulocyte % (Auto) 0, Neutrophils (%) (Auto) 67, Lymphocytes (%) (Auto) 25, Monocytes (%) (Auto) 7, Eosinophils (%) (Auto) 1, Basophils (%) (Auto) 1, Neutrophils # (Auto) 6.3, Lymphocytes # (Auto) 2.4, Monocytes # (Auto) 0.7, Eosinophils # (Auto) 0.1, Basophils # (Auto) 0.1, Immature Granulocyte # (Auto) 0.0, Sodium Level 141, Potassium Level 4.3, Chloride Level 111, Carbon Dioxide Level 21, Anion Gap 9, Blood Urea Nitrogen 8, Creatinine 0.77, Estimat Glomerular Filtration Rate 85, BUN/Creatinine Ratio 10, Glucose Level 110, Calcium Level 8.9, Corrected Calcium 9.0, Magnesium Level 1.9, Total Bilirubin 1.4, Aspartate Amino Transf (AST/SGOT) 101, Alanine Aminotransferase (ALT/SGPT) 44, Alkaline Phosphatase 88, Total Protein 7.3, Albumin 3.9 Discharge Home Medications: Active Scripts Active Aspirin EC (Aspirin) 81 Mg Tablet.dr 81 Mg PO DAILY 30 Days Losartan Potassium 25 Mg Tablet 25 Mg PO DAILY 30 Days Metoprolol Succinate 25 Mg Tab.er.24h 25 Mg PO DAILY 30 Days Nitroglycerin 0.4 Mg Tab.subl 0.4 Mg SL UD PRN Lipitor (Atorvastatin Calcium) 40 Mg Tablet 40 Mg PO HS 30 Days Brilinta (Ticagrelor) 90 Mg Tablet 90 Mg PO BID 30 Days Reported Docusate Sodium 100 Mg Capsule 100 Mg PO DAILY PRN Levothyroxine Sodium 50 Mcg Tablet 50 Mcg PO DAILY Venlafaxine HCl ER (Venlafaxine HCl) 150 Mg Cap.er.24h 150 Mg PO DAILY Instructions to patient/family Please see electronic discharge instructions given to patient. Diagnosis/Problems Diagnosis/Problems (1) STEMI (ST elevation myocardial infarction) Status: Acute Qualifiers: Qualified Codes: I21.11 - ST elevation (STEMI) myocardial infarction involving right coronary artery Clinical Quality Measures AMI/AHF: ASA po Prior to arrival: Yes (81MG ASA AT 0130) TREMAINE TO DO Nov 09, 2022 10:14
--- NOTE | 2022-11-09 11:36 | Discharge Inst-Post CATH ---
Discharge Inst-CATH/EP Problems Reviewed?: Yes Post Cardiac Cath/EP D/C Inst Follow Up/Plan Appointment with Dr. Davis's office in 2 to 4 weeks <b>CARDIAC CATH/EP PROCEDURE DISCHARGE INSTRUCTIONS</b> ACTIVITY * Go Home directly and rest. * Limit activity of the leg (or wrist if it was used) for 7 days including aer obics, swimming, jogging, bicycling, etc. * Restrict stair-climbing for 7 days if possible, if not, climb up with your non-cath leg, then bring together on the same step. * Avoid lifting, pushing, pulling or excessive movement of the affected extremi ty for 7 days. * Customary sexual activity may be resumed after 2 days-use caution not to use a position that strains or causes pain to the affected extremity. * No driving for 24 hours. * NO SMOKING. * Avoid straining for bowel movements for 7 days. * Gentle walking on level ground is allowed. * Returning to work will depend on the type of procedure and the results. Your doctor will discuss this with you. CALL YOUR DOCTOR FOR ANY OF THE FOLLOWING: *If bleeding from the puncture site occurs- Apply gentle pressure to site with clean cloth and call your doctor or EMS. * If a knot or lump forms under the skin, increases in size, or causes pain. * If bruising appears to be worsening or moving further down your leg instead of disappearing. * Temperature above 101 F. CARE OF YOUR GROIN INCISION; * Bruising or purple discoloration of the skin near the puncture site is common. * You may shower only, no bathtub bathing for 5 days. Be careful to avoid slipping as your leg may feel stiff. * If a closure device was used on your femoral artery, please see the attached guide regarding care of the device and your leg. * Leave dressing on FOR 24 hours. CARE OF YOUR WRIST INCISION; * Bruising or purple discoloration of the skin near the puncture site is common. * You may shower. * DO NOT submerge wrist. * Leave dressing on FOR 24 hours. AUNDREA DAVIS MD Nov 09, 2022 11:36
[2022-11-09 11:40] VITALS: BP 150/82
== END 2022-11-09 11:40 | disposition home or self-care (01) | DRG 247 ==
LOC: EDUNIT# 05:31 → ER 05:33 → SDC 06:05 → ICU 07:35
PROVIDERS: ADMIT Internal Medicine Cardiovascular Disease; ATTEND Internal Medicine
PROC: 027035Z Dilation of Coronary Artery, One Artery with Two Drug-eluting Intraluminal Devices, Percutaneous Approach (ICD-10-PCS; principal; 2022-11-08)
PROC: 02C03ZZ Extirpation of Matter from Coronary Artery, One Artery, Percutaneous Approach (ICD-10-PCS; 2022-11-08)
PROC: 4A023N7 Measurement of Cardiac Sampling and Pressure, Left Heart, Percutaneous Approach (ICD-10-PCS; 2022-11-08)
PROC: B2151ZZ Fluoroscopy of Left Heart using Low Osmolar Contrast (ICD-10-PCS; 2022-11-08)
PROC: B2111ZZ Fluoroscopy of Multiple Coronary Arteries using Low Osmolar Contrast (ICD-10-PCS; 2022-11-08)
DX: I21.11 ST elevation (STEMI) myocardial infarction involving right coronary artery (principal); I25.10 Atherosclerotic heart disease of native coronary artery without angina pectoris; E78.00 Pure hypercholesterolemia, unspecified; I10 Essential (primary) hypertension; F41.9 Anxiety disorder, unspecified; E03.9 Hypothyroidism, unspecified; J45.909 Unspecified asthma, uncomplicated; Z66 Do not resuscitate; Z20.822 Contact with and (suspected) exposure to COVID-19; Z88.0 Allergy status to penicillin
CPT/HCPCS: 36415; 71045; 80053; 80061; 82150; 82550; 82553; 83036; 83690; 83735; 83874; 83880; 84443; 84484; 85025; 85027; 85347; 85379; 85610; 85652; 85730; 86141; 87636; 93005; 93041; 93306; 93458

== ENCOUNTER → 2022-11-28 | Outpatient (CLI) | payer MEDICARE ==
[~2022-11-28] MED LIST changes: +ASPI-1238 PO; +ASPI325T32 PO; +ATOR40TA PO; +DOCU100C37 PO; +LEVO50TA6 PO; +LOSA25TA41 PO; +MTP25TSR PO; +NITR0.4T42 SL; +TICA90TA PO
--- NOTE | 2022-11-28 10:17 | Diagnostic Imaging Report ---
INDICATION: Routine screening. Comparison is made with prior mammogram from 11/18/2021 and 11/16/2020. 2-D and 3-D bilateral screening mammography was performed with CAD. Scattered fibroglandular densities are identified bilaterally. Benign interpectoral lymph nodes outer right breast are stable. No spiculated mass or malignant-appearing microcalcifications are identified. Axillae are unremarkable. IMPRESSION: No mammographic features suspicious for malignancy are identified. ACR BI-RADS Category 2: Benign findings. Result letter will be mailed to the patient. Note: At least 10% of breast cancer is not imaged by mammography. BI-RADS Category 2 Dictated by: Dictated on workstation # [id number]
== END ==
LOC: RAD 08:02
PROVIDERS: ATTEND Internal Medicine
DX: Z12.31 Encounter for screening mammogram for malignant neoplasm of breast (principal)
CPT/HCPCS: 77063; 77067

== ENCOUNTER 2023-07-13 09:19 | Outpatient (RCR) | payer MEDICARE | END 2023-07-13 11:48 | disposition home or self-care (01) | PROVIDERS: ATTEND Orthopaedic Surgery | DX: M17.11 Unilateral primary osteoarthritis, right knee (principal); I10 Essential (primary) hypertension ==